=== PATIENT | female | born 1990 | race Caucasian/White ===

== ENCOUNTER 2024-03-28 16:24 | Emergency (ER) | payer OTHER, SELFPAY ==
[2024-03-28 16:27] VITALS: BP 156/84; PULSE 100; RESP 20; TEMP 36.9; O2SAT 99; BMI 42.3
--- NOTE | 2024-03-28 16:32 | ED_ITS ---
HPI - General Adult General Chief complaint: Chest Pain Stated complaint: chest pain, high heart rate Time Seen by Provider: 03/28/24 16:32 History of Present Illness HPI narrative: just walking to car and heart started racing. HR was up to 210 per apple watch. now having some cp. states lasted about a minute . had similar episode about 2 years ago but was not seen at that time. 33-year-old woman presenting to the emergency department with concern of tachycardia and chest pain. She was just walking to her car and suddenly her heart started racing. Measured on her watch at 210 beats per minute. Lasted less than a minute. Was feeling lightheaded appear Had some pressure or feeling of it beating really hard. Couple of years ago had a similar episode though not quite as intense and was not evaluated at that time. She does walk regularly without difficulty. Only takes vitamins for medications and Depo. No particular health problems. No history of anemia. Seen in August with checkup in extensive lab work. I am able to review this with normal chemistries and renal function and hemoglobin and TSH. Otherwise has been usual state of health. She notes her normal resting heart rate in the 80s No family history of unexplained sudden cardiac . Related Data Home Medications ?Medication ?Instructions ?Recorded ?Confirmed estradiol cypionate IM 02/14/24 02/14/24 [Depo-Estradiol] Allergies Allergy/AdvReac Type Severity Reaction Status Date / Time amoxicillin Allergy Verified 02/14/24 16:13 Penicillins Allergy Verified 02/14/24 16:13 Review of Systems Status of ROS: Reports: 6 or more systems reviewed and unremarkable except as noted in History and below Exam Narrative: Exam Narrative: Pleasant. NAD. Breathing easily. Lungs are clear. Heart is in elevated and regular rate without murmur rub or gallop. During our conversation does drop into the 90s. She is well-perfused peripherally. Moving all extremities without difficulty. Const: Vital Signs, click to edit/add: Vital Signs - 24 hr 03/28/24 16:27 Temperature 98.4 F Pulse Rate [Pulse Oximeter] 100 Respiratory Rate 20 Blood Pressure [Ri ght Upper Arm] 156/84 H Pulse Oximetry 99 Oxygen Delivery Me thod Room Air Documenting provider has reviewed patient's vital signs: yes Course Vital Signs Vital signs: Initial Vital Signs Temperature 98.4 F 03/28/24 16:27 Temperature Source Temporal Artery Scan 03/28/24 16:27 Pulse Rate 100 03/28/24 16:27 Respiratory Rate 20 03/28/24 16:27 Blood Pressure 156/84 H 03/28/24 16:27 Blood Pressure Mean 108 H 03/28/24 16:27 Blood Pressure Position Sitting 03/28/24 16:27 Pulse Oximetry 99 03/28/24 16:27 Oxygen Delivery Method Room Air 03/28/24 16:27 Vital Signs Temperature 98.4 F 03/28/24 16:27 Pulse Rate 100 03/28/24 16:27 Respiratory Rate 20 03/28/24 16:27 Blood Pressure 156/84 H 03/28/24 16:27 Pulse Oximetry 99 03/28/24 16:27 Oxygen Delivery Method Room Air 03/28/24 16:27 Temperature 98.4 F 03/28/24 16:27 Pulse Rate 100 03/28/24 16:27 Respiratory Rate 20 03/28/24 16:27 Blood Pressure 156/84 H 03/28/24 16:27 Pulse Oximetry 99 03/28/24 16:27 Oxygen Delivery Method Room Air 03/28/24 16:27 Medical Decision Making MDM Narrative Medical decision making narrative: Relatively recent normal labs without underlying health problems. Doubtful that lab evaluation which show anything. Elevated troponin possibly though this would be likely rate related and was only tachycardic momentarily. EKG reviewed by me now shows a sinus rhythm Monitor briefly in the emergency department without return to this rhythm. This could have been supraventricular tachycardia given the rate that she had measured. Doubtful atrial fibrillation but possible. At this point I think could be prudent to do longer outpatient monitoring. Will try to set up with a ZIO patch. Patient discharge plan below Stay well-hydrated. I do not believe you need to restrict your activity. Return ZIO patch as recommended. If you have more events though that would have been captured before the 2 week is up, I suppose you could bring it in sooner. I only mention this as you have a an appointment in clinic in 2 weeks for preop and perhaps there would be time for this to be interpreted ahead of that appointment. Return for persistent recurrence of symptoms. Medical Records Medical records reviewed: Yes I reviewed the patient's medical records ECG Data Attestation: I personally reviewed and interpreted this ECG as follows: (Sinus tachycardia 103. no delta wave) Discharge Plan Discharge Clinical Impression: Tachycardia Patient Disposition: Home, Self-Care Condition: Improved Additional Instructions: Stay well-hydrated. I do not believe you need to restrict your activity. Return ZIO patch as recommended. If you have more events though that would have been captured before the 2 week is up, I suppose you could bring it in sooner. I only mention this as you have a an appointment in clinic in 2 weeks for preop and perhaps there would be time for this to be interpreted ahead of that appointment. Return for persistent recurrence of symptoms. Prescriptions: No Action estradiol cypionate [Depo-Estradiol] IM Follow Up/Referrals: Provider,Not a Local [Primary Care Provider] - Stand Alone Forms: [employer] Interactive Info Instructions
== END 2024-03-28 18:08 | disposition home or self-care (01) ==
PROVIDERS: Emergency Provider Family Medicine
DX: R00.0 Tachycardia, unspecified (principal)
CPT/HCPCS: 93005; 93246; 99284

== ENCOUNTER 2024-04-18 19:26 | Emergency (ER) | payer OTHER, SELFPAY ==
[2024-04-18] VITALS (8 sets, daily range): BP systolic 132; BP diastolic 86; PULSE 83–97; RESP 18; TEMP 36.8; O2SAT 99–100; BMI 43.1
--- OUTSIDE RECORDS SUMMARY | 2024-04-18 19:31 | XMS_ITS | Encounter Summary ---
Author Organization [facility] Address [address] [place] [address] Care Team Providers Care General Practitioner Name Role Phone Jennifer Palumbo PA-C Primary Care Provider [phone] Encounter Details Date Type Department Care Team (Late st Contact Info) Description 01/11/2024 10:20 AM CDT Lab Visit [facility] [address] [place] [address] Vitamin D deficiency ([facility]) Social History Tobacco Use Types Packs/Day Years Used Date Smoking Tobacco: Former Cigarettes 0.5 5 0 05/14/2014 - 05/14/2019 Smokeless Tobacco: Never Alcohol Use Standard Drinks/Week Comments Yes 1 (1 standard drink = 0.6 oz pur e alcohol) occ PHQ-2 Answer Date Recorded PHQ-2 Score 0 10/18/2023 Sex and Gender Information Value Date Recorded Sex Assigned at Not on file Gender Identity Not on file Sexual Orientation Not on file documented as of this encounter Plan of Treatment Upcoming Encounters Date Type Department Care Team (Latest Contact Info) Description 04/25/2024 1:00 PM ACCESS SERVICES REPRESENTATIVE Hospital Encounter [facility] [address] [facility]. [place], [place] [address] Jayme Gardiner MBBS [address] [facility] [address] [place], [place] [address] 04/25/2024 1:00 PM ACCESS SERVICES REPRESENTATIVE - 04/25/2024 3:55 PM ACCESS SERVICES REPRESENTATIVE Surgery [facility] [address] [facility] [place] [address] Jayme Gardiner MBBS [address] [facility] [address] [place], [place] [address] XI Robotic Laparoscopic Vertical Sleeve Gastrectomy 05/01/2024 10:30 AM ACCESS SERVICES REPRESENTATIVE Appointment [facility] [address] [place] [address] [place] [address] Bam Majano, MANDEEP 05/26/2024 8:30 AM ACCESS SERVICES REPRESENTATIVE [facility]med[facility] [address] [address] Sierra Palm RDN, [address] [place] [address] 05/26/2024 9:00 AM ACCESS SERVICES REPRESENTATIVE Tele[facility]icine [facility] [address] [address] Bam Majano, MANDEEP 06/09/2024 10:00 AM ACCESS SERVICES REPRESENTATIVE Appointment Nursing at [address] [address] Scheduled Procedures Name Priority Associated Diagnoses Date/Ti me XI Robotic Laparoscopic Vertical Sleeve Gastrectomy Morbid obesity with BMI of 40.0-44.9, adult ([facility]C) 04/25/2024 1:00 PM ACCESS SERVICES REPRESENTATIVE documented as of this encounter Procedures Procedure Name Priority Date/Time Associated Diagnosis Comments VITAMIN D 25-HYDROXY, TOTAL Routine 01/11/2024 10:16 AM CDT Vitamin D deficiency ([facility]) documented in this encounter Results * Vitamin D 25-Hydroxy, Total (01/11/2024 10:16 AM CDT) Vitamin D, 25-OH, Total 33 30 - 80 ng/mL 01/11/2024 3:47 PM CDT [facility] Blood Venipuncture / Unknown 01/11/2024 10:16 AM CDT 01/11/2024 10:16 AM CDT Shruthi Araiza PA-C LAB_1 Performing Organization Address City/State/[facility] Co de Phone Number [facility] [address] documented in this encounter Visit Diagnoses Diagnosis Vitamin D deficiency ([facility]) Unspecified vitamin D deficiency Morbid obesity with BMI of 40.0-44.9, adult ([facility]) documented in this encounter Care Teams General Practitioner Relationship Specialty Start Date End Date Jennifer Palumbo PA-C [address] [place] [address] PCP - General Physician Wire Wheeler 02/02/22 documented as of this encounter
--- OUTSIDE RECORDS SUMMARY | 2024-04-18 19:31 | XMS_ITS | Encounter Summary ---
Author Organization [facility] Address [address], [place] [address] Care Team Providers Care Business Functional Analyst Name Role Phone Jennifer Palumbo PA-C Primary Care Provider [phone] Reason for Visit * Reason Comments Depo Provera Injection Encounter Details Date Type Department Care Team (Latest Contact Info) Description 03/19/2024 8:00 AM UTILITY WORKER Nursing Visit Nursing at [address] [address] Surveillance of contraceptive injection (Primary Dx) Social History Tobacco Use Types Packs/Day Years [...] on file documented as of this encounter Patient Instructions * Patient Instructions* SayRadha LPN - 03/19/2024 8:00 AM UTILITY WORKER Depo-Provera injection was given today, 03/19/24. Next dose is due between 06/04/2024 and 06/18/2024. Please schedule next Depo-Provera injection. Use back up contraception for 7 days IF: this is your first injection AND you are post miscarriage or elective this is your first injection AND you are you are outside of the timline guidelines and the clinician has approved injection administration at the visit today ITY WORKER documented in this encounter Progress Notes * Radha Lambert LPN - 03/19/2024 8:00 AM CST S: Ely Campbell is here for Depo Provera Injection for: control treatment. O: Patient has current Depo Provera order in chart, ordered by Jennifer Palumbo PA-C. Date of order is 10/17/23 A: Injection administered according to injection timing guidelines. Yes.. This is injection number 3. P: Depo-Provera injection was given today, 03/19/24. Next dose is due between 06/04/2024 and 06/18/2024. Patient informed to schedule next Depo-Provera injection. Patient informed to use back up contraception for 7 days IF: this is their first injection AND they are post miscarriage or elective this is their first injection AND they are they are outside of the timing guidelines and the clinician has approved injection administration at the visit today 03/19/2024, 8:01 AM ITY WORKER documented in this encounter Nursing Notes * Radha Lambert LPN - 03/19/2024 8:00 AM CST PREVISIT PLANNING DEPO PROVERA NOTE This note does not indicate that the injection was given. For PVP purposes only Pt within time frame for Depo today 03/19/24 - Side today: Right - Date of order: 10/17/23 - Last injection: 01/02/24 - Dx: Encounter for initial prescription of injectable contraceptive - Ordering Provider: Jennifer Palumbo PA-C - Next due: 06/04/24-06/18/24 - This will be injection: 3 Radha Eldridge LPN, 03/17/2024, 2:14 PM ITY WORKER documented in this encounter Plan of Treatment Upcoming Encounters Date Type Department Care Team (Latest Contact Info) Description 04/25/2024 1:00 PM UTILITY WORKER Hospital Encounter [facility] [address] [facility] [place] [address] Jayme Gardiner MBBS [id number] [place], [place] [address] 04/25/2024 1:00 PM UTILITY WORKER - 04/25/2024 3:55 PM UTILITY WORKER Surgery [facility] [address] [facility]. [place], [place] [id number] Jayme Gardiner MBBS [address] [address] XI Robotic Laparoscopic Vertical Sleeve Gastrectomy 05/01/2024 10:30 AM UTILITY WORKER Appointment [facility] [address] [place], [place] [address]e. [address] [address] Bam Majano, MANDEEP 05/26/2024 8:30 AM UTILITY WORKER Telemedicine [facility] [address] [place] [address] [address] Sierra Palm RDN, [place] [address] [place] [address] 05/26/2024 9:00 AM UTILITY WORKER Telemedicine [facility] [address] [place] [address] [address] Bam Majano, MANDEEP 06/09/2024 10:00 AM UTILITY WORKER Appointment Nursing at [address] [phone] Scheduled Procedures Name Priority Associated Diagnoses Date/Ti me XI Robotic Laparoscopic Vertical Sleeve Gastrectomy Morbid obesity with BMI of 40.0-44.9, adult ([facility]) 04/25/2024 1:00 PM UTILITY WORKER documented as of this encounter Visit Diagnoses Diagnosis Morbid obesity with BMI of 40.0-44.9, adult ([facility])- Primary Surveillance of contraceptive injection- Primary Surveillance of other previously prescribed contraceptive method Morbid obesity with BMI of 40.0-44.9, adult ([facility]) documented in this encounter Administered Medications Active Administered Medications - up to 3 most recent administrations Medication Order MAR Action Action Date Dose Rate Site medroxyPROGESTERone (DEPO-PROVERA) injection 150 mg 150 mg, Intramuscular, EVERY 90 DAYS, First dose on Sun10/17/23 at 1100, Last dose on Sun07/13/24 at 1100, For 4 doses, Follow Depo Provera Policy HAZARDOUS DRUG Preparation: Single glove, gown; face mask optional Administration: Single glove Given 03/19/2024 8:08 AM UTILITY WORKER 150 mg Right Ventralgluteal Given 01/02/2024 9:51 AM CDT 150 mg Le ft Ventralgluteal Given 10/17/2023 10:51 AM CDT 150 mg R ight Ventralgluteal documented in this encounter Care Teams Business Functional Analyst Relationship Specialty Start Date End Date Jennifer Palumbo PA-C [address] [place] [address] PCP - General Physician Intern Product Marketing Manager 02/02/22 documented as of this encounter
--- OUTSIDE RECORDS SUMMARY | 2024-04-18 19:31 | XMS_ITS | Encounter Summary ---
Author Organization [facility] Address [address], [place] [address] Care Team Providers Care Feeder Worker Power Unit Operator Name Role Phone Jennifer Palumbo PA-C Primary Care Provider [phone] Reason for Visit * Reason Comments Morbid Obesity Video Visit Encounter Details Date Type Department Care Team (Late st Contact Info) Description 02/01/2024 10:00 AM CDT Tele[facility] [address] [facility] [address] [place] [address] Meenakshi León RN Morbid obesity with body mass index (BMI) of 40.0 to 44.9 in adult ([facility]) (Primary Dx) Social History Tobacco Use Types [...] this encounter Patient Instructions * Patient Instructions* Meenakshi León RN - 02/01/2024 10:00 AM CDT Congratulations on your successes and keep up the hard work! The pre procedure staff will be calling you the day before your scheduled surgery. They will provide you with updated times for your surgery and when to arrive at the hospital. Our organization recommends patients do not receive any vaccination--including for Covid-19 --within 72 hours of a scheduled procedure including surgery. This is to prevent any vaccination reactions from being confused with a complication from your procedure. Likewise, we recommend you wait for at least 7 days after your procedure to be vaccinated. Again, this is to prevent any vaccination reactions from being confused with a post-procedure or post-surgical complication. Review your medication list with the medical provider at your pre operative physical exam. 10 days before surgery: (subject to change at surgeon visit) Begin your high protein liquid diet. If, after starting your high protein liquid diet, you become constipated, begin adding one capful of Miralax to a beverage each day until your surgery- stop if you develop loose stools. 10 days before surgery: Stop all herbal supplements, fish oil, or flaxseed that you may be taking Discontinue the use of NSAID'S (ibuprofen, Advil, Aleve, Motrin, etc.) and aspirin. Tylenol (acetaminophen) is ok. 7 days before surgery: You will receive a courtesy call from your nurse. The day before surgery: If you are having a Dali-en-Y Gastric bypass: purchase Dulcolax Laxative tablets. They usually come5 mg per tablet. Take 4 tablets (to equal 20 mg total) in the scientific helper on the day before surgery. Continue to drink fluids throughout the day to keep well hydrated. You may continue to drink clear liquids up until 4 hours prior to your time of surgery. Discontinue the high protein liquid diet and drink clear liquids only. Refer to your Care Guide forexamples. If you are using Cannabis, refrain from Cannabis use after midnight the night before surgery. UsingCannabis, alcohol or illicit drugs the day of the procedure may result in delay or cancellation of elective surgery/procedures. When showering the night before surgery, please clean well inside your naval as there will be an incision near there. Use CHG wipes that were given to you at surgeon consult as directed. The day of surgery: Stop drinking clear liquids 4 hours before your scheduled surgery. Be sure you have necessary food items in the home prior to surgery, i.e. clear juices, clear broth,sugar free jello, sugar free fluids, etc. Review the surgery and follow-up sections of your care guide and bring it with you to the hospital and to all future appointments. *If you use CPAP, clean the machine well and bring it with you to the hospital. Someone from the sleep center will contact you before surgery. You may go home from the hospital on an injectable medication called Lovenox to help prevent blood clots. If so, the staff in the hospital will provide you with further teaching regarding this. Contact [facility] with any new medical concerns occurring within 30days (before or after) your surgery. No non-emergent surgical procedures within 30 days (before or after) surgery. No long distance travel for 30 days after surgery. Call with questions or concerns. Meenakshi León RN 8:13 AM 02/01/2024 documented in this encounter Progress Notes * Meenakshi León RN - 02/01/2024 10:00 AM CDT Group Video Visit via [employer] Preoperative Education - Bariatric Surgery Completed preoperative education for bariatric surgery using care guide as resource. Instructions for CHG cloths was completed. Ely verbalized understanding and had an opportunity to have all questions answered. The following will be provided to her: AVS at surgeon consultation visit What is an Injectable Anticoagulant patient education form Medical Leave of Absence instructions Provided her with my direct contact number for questions. Encouraged to contact [facility] with any questions or concerns. Meenakshi León RN 02/01/2024, 11:30 AM documented in this encounter Plan of Treatment Upcoming Encounters Date Type Department Care Team (Latest Contact Info) Description 04/25/2024 1:00 PM [facility] Hospital Encounter [facility] [address] [facility] [place] [address] Jayme Gardiner MBBS [address] [facility] [address] [place] [address] 04/25/2024 1:00 PM PENSION MANAGER - 04/25/2024 3:55 PM PENSION MANAGER [facility] [address] [facility] [place] [address] Jayme Gardiner MBBS [address] [facility] [address] [place] [address] XI Robotic Laparoscopic Vertical Sleeve Gastrectomy 05/01/2024 10:30 AM PENSION MANAGER Appointment [facility] [address] [place] [address] [place] [address] Bam Majano, MANDEEP 05/26/2024 8:30 AM PENSION MANAGER Telemedicine [facility] [address] [place] [address] Sierra Palm RDN, [address] [place] [address] 05/26/2024 9:00 AM PENSION MANAGER Telemedicine [facility] [address] [address] Bam Majano, MANDEEP 06/09/2024 10:00 AM PENSION MANAGER Appointment Nursing at [address] [phone] Scheduled Procedures Name Priority Associated Diagnoses Date/Ti me XI Robotic Laparoscopic Vertical Sleeve Gastrectomy Morbid obesity with BMI of 40.0-44.9, adult ([facility]) 04/25/2024 1:00 PM PENSION MANAGER documented as of this encounter Visit Diagnoses Diagnosis Morbid obesity with body mass index (BMI) of 40.0 to 44.9 in adult ([facility])- Primary Morbid obesity with BMI of 40.0-44.9, adult ([facility]) documented in this encounter Care Teams Feeder Worker Power Unit Operator Relationship Specialty Start Date End Date Jennifer Palumbo PA-C [address] [place] [address] PCP - General Physician Professor Of Fine Art 02/02/22 documented as of this encounter
--- OUTSIDE RECORDS SUMMARY | 2024-04-18 19:31 | XMS_ITS | Encounter Summary ---
Author Organization [employer] Address [address] [place] [address] Care Team Providers Care Coat Fitter Name Role Phone Jennifer Palumbo PA-C Primary Care Provider [phone] Reason for Visit * Reason Comments Nutrition Counseling Encounter Details Date Type Department Care Team (Late st Contact Info) Description 04/14/2024 8:00 AM COMMUNICATIONS DEPARTMENT HEAD Telemedicine [facility] [address] [facility] [address] [place], [place] [phone] Sierra Palm RDN, LD [address] [place], [place] [id number] Morbid obesity with BMI of 40.0-44.9, adult (HRC) (Primary Dx) Social History Tobacco Use Types Packs/Day Years Used Date Smoking Tobacco: Former Cigarettes 0.5 5 0 05/14/2014 - 05/14/2019 Smokeless Tobacco: Never Alcohol Use Standard Drinks/Week Comments Not Currently 1 (1 standard drink = 0.6 oz pur e alcohol) occ PHQ-2 Answer Date Recorded PHQ-2 Score 0 10/18/2023 Sex and Gender Information Value Date Recorded Sex Assigned at Not on file Gender Identity Not on file Sexual Orientation Not on file documented as of this encounter Last Filed Vital Signs Vital Sign Reading Time Taken Comments Blood Pressure - - Pulse - - Temperature - - Respiratory Rate - - Oxygen Saturation - - Inhaled Oxygen Concentration - - Weight 122.5 kg (270 lb) 04/13/2024 8:18 PM COMMUNICATIONS DEPARTMENT HEAD Height 170.2 cm (5' 7) 04/13/2024 8:18 PM COMMUNICATIONS DEPARTMENT HEAD Body Mass Index 42.29 04/13/2024 8:18 PM COMMUNICATIONS DEPARTMENT HEAD documented in this encounter Progress Notes * Sierra Palm RDN, LD - 04/14/2024 8:00 AM CST [facility] Medical Nutrition Therapy: Bariatric Pre-Op ASSESSMENT: Referring Provider: Dr Gardiner BMI: Estimated body mass index is 42.29 kg/m?? as calculated from the following: Height as of this encounter: 1.702 m (5' 7). Weight as of this encounter: 122.5 kg (270 lb).. Date of Surgery: April 25, 2024. Since last RD visit: Planning for sleeve gastrectomy Vitamin and mineral supplements: Patient does take a multivitamin and mineral daily. Patient does take 2000 IU vitamin D daily. DIAGNOSIS: We will continue to treat the following obesity-associated medical conditions and conditions exacerbated by or contributing to weight gain by aggressive management of weight: INTERVENTION: Patient has the bariatric binder and was educated on the ten day pre-operative liquid diet, diet changes necessary after the vertical sleeve gastrectomy. Patient was educated on textures, timing, fluids, portions, protein needs, and micronutrient needs. Patient was educated on use of appropriate protein supplements to meet protein needs. Protein needs are estimated at 75 grams/day. MONITORING AND EVALUATION: Patient verbalizes understanding of education. Patient will work with PCP to adjust diabetes medications including insulin for pre-op liquid diet Patient will follow up with the dietitian one month after surgery. Patient was instructed to call with questions. Thank you for this referral. Time: 30 minutes. This visit was conducted via video UNICATIONS DEPARTMENT HEAD documented in this encounter Plan of Treatment Upcoming Encounters Date Type Department Care Team (Latest Contact Info) Description 04/25/2024 1:00 PM COMMUNICATIONS DEPARTMENT HEAD Hospital Encounter [facility] [address] [place] [address]. [place] [address] Jayme Gardiner MBBS [id number] [place] [address] 04/25/2024 1:00 PM COMMUNICATIONS DEPARTMENT HEAD - 04/25/2024 3:55 PM COMMUNICATIONS DEPARTMENT HEAD Surgery [facility] [address] [place] [address]. [place] [address] Jayme Gardiner MBBS [id number] [place] [address] XI Robotic Laparoscopic Vertical Sleeve Gastrectomy 05/01/2024 10:30 AM COMMUNICATIONS DEPARTMENT HEAD Appointment [facility] [address] [place] [address] [address] Bam Majano RN 05/26/2024 8:30 AM COMMUNICATIONS DEPARTMENT HEAD Telemedicine [facility] [address] [address] Sierra Palm RDN, LD [address] [place] [address] 05/26/2024 9:00 AM COMMUNICATIONS DEPARTMENT HEAD Telemedicine [facility] [address] [address] Bam Majano RN 06/09/2024 10:00 AM COMMUNICATIONS DEPARTMENT HEAD Appointment Nursing at [address] [phone] Scheduled Procedures Name Priority Associated Diagnoses Date/Ti me XI Robotic Laparoscopic Vertical Sleeve Gastrectomy Morbid obesity with BMI of 40.0-44.9, adult ([facility]) 04/25/2024 1:00 PM COMMUNICATIONS DEPARTMENT HEAD documented as of this encounter Visit Diagnoses Diagnosis Morbid obesity with BMI of 40.0-44.9, adult (HRC)- Primary Morbid obesity with BMI of 40.0-44.9, adult (HR[facility])- Primary Morbid obesity with BMI of 40.0-44.9, adult ([facility]) documented in this encounter Care Teams Coat Fitter Relationship Specialty Start Date End Date Jennifer Palumbo PA-C [address] [place] [address] PCP - General Physician Typist 02/02/22 documented as of this encounter
--- OUTSIDE RECORDS SUMMARY | 2024-04-18 19:31 | XMS_ITS | Encounter Summary ---
Author Organization [facility] Address [address] [place] [address] Care Team Providers Care Stoper Name Role Phone Jennifer Palumbo PA-C Primary Care Provider [phone] Encounter Details Date Type Department Care Team (Late st Contact Info) Description 01/11/2024 E-Visit [facility] [address] [facility] [address] [place], [place] [address] Letitia Isaac Social History Tobacco Use Types Packs/Day Years [...] (Latest Contact Info) Description 04/25/2024 1:00 PM CANE PILER Hospital Encounter [facility] [address] [place], [place] [address] Jayme Gardiner MBBS [address] [facility] [address] [place] [address] 04/25/2024 1:00 PM CANE PILER - 04/25/2024 3:55 PM CANE PILER Surgery [facility] [address] [facility] [place] [address] Jayme Gardiner MBBS [address] [facility] [address] [place] [address] XI Robotic Laparoscopic Vertical Sleeve Gastrectomy 05/01/2024 10:30 AM CANE PILER Appointment [facility] [place] [address] [place] [address] [place] [address] Bam Majano, MANDEEP 05/26/2024 8:30 AM CANE PILER Telemedicine [facility] [address] [address] Sierra Palm RDN, [address] [place] [address] 05/26/2024 9:00 AM CANE PILER Telemedicine [facility] [address] [place] [address] Bam Majano, MANDEEP 06/09/2024 10:00 AM CANE PILER Appointment Nursing at [address] [address] Scheduled Procedures Name Priority Associated Diagnoses Date/Ti me XI Robotic Laparoscopic Vertical Sleeve Gastrectomy Morbid obesity with BMI of 40.0-44.9, adult ([facility]) 04/25/2024 1:00 PM CANE PILER documented as of this encounter Visit Diagnoses Not on filedocumented in this encounter Care Teams Stoper Relationship Specialty Start Date End Date Jennifer Palumbo PA-C [address] [place] [address] PCP - General Physician French Drawer 02/02/22 documented as of this encounter
--- OUTSIDE RECORDS SUMMARY | 2024-04-18 19:31 | XMS_ITS | Encounter Summary ---
Author Organization [facility] Address [address] [place] [address] Care Team Providers Care Financial Systems Analyst Name Role Phone Jennifer Palumbo PA-C Primary Care Provider Encounter Details Date Type Department Care Team (Late st Contact Info) Description 02/01/2024 E-Visit [facility] [address] [facility] [address] [place], [place] [address] [place] [address] Social History Tobacco Use Types Packs/Day Years [...] (Latest Contact Info) Description 04/25/2024 1:00 PM URGENT CARE TECHNICIAN Hospital Encounter [facility] [address] [place], [place] [address] Jayme Gardiner MBBS [address] [address] 04/25/2024 1:00 PM URGENT CARE TECHNICIAN - 04/25/2024 3:55 PM URGENT CARE TECHNICIAN Surgery [facility] [address] [place] [address] Jayme Gardiner MBBS [address] [address] XI Robotic Laparoscopic Vertical Sleeve Gastrectomy 05/01/2024 10:30 AM URGENT CARE TECHNICIAN Appointment [facility] [place] [address] [place] [address] Bam Majano, MANDEEP 05/26/2024 8:30 AM URGENT CARE TECHNICIAN Telemedicine [facility] [address] [address] Sierra Palm RDN, LD [address] [place] [address] 05/26/2024 9:00 AM URGENT CARE TECHNICIAN Telemedicine [facility] [address] [address] Bam Majano, MANDEEP 06/09/2024 10:00 AM URGENT CARE TECHNICIAN Appointment Nursing at [address] [phone] Scheduled Procedures Name Priority Associated Diagnoses Date/Ti me XI Robotic Laparoscopic Vertical Sleeve Gastrectomy Morbid obesity with BMI of 40.0-44.9, adult ([facility]) 04/25/2024 1:00 PM URGENT CARE TECHNICIAN documented as of this encounter Visit Diagnoses Not on filedocumented in this encounter Care Teams Financial Systems Analyst Relationship Specialty Start Date End Date Jennifer Palumbo PA-C [address] [place] [address] PCP - General Physician Horser Up 02/02/22 documented as of this encounter
--- OUTSIDE RECORDS SUMMARY | 2024-04-18 19:31 | XMS_ITS | Encounter Summary ---
Author Organization [facility] Address [address] [place] [address] Care Team Providers Care Reservation Manager Name Role Phone Jennifer Palumbo PA-C Primary Care Provider [phone] Encounter Details Date Type Department Care Team (Late st Contact Info) Description 02/05/2024 Notes/Orders [facility] [address] [facility] [address] [place], [place] [address] Letitia Isaac Social History Tobacco Use Types [...] (Latest Contact Info) Description 04/25/2024 1:00 PM MEDICAL TECHNOLOGIST CHIEF Hospital Encounter [facility] [address] [place], [place] [address] Jayme Gardiner MBBS [address] [facility] [address] [place] [address] 04/25/2024 1:00 PM MEDICAL TECHNOLOGIST CHIEF - 04/25/2024 3:55 PM MEDICAL TECHNOLOGIST CHIEF Surgery [facility] [address] [place] [address] Jayme Gardiner MBBS [address] [facility] [address] [place] [address] XI Robotic Laparoscopic Vertical Sleeve Gastrectomy 05/01/2024 10:30 AM MEDICAL TECHNOLOGIST CHIEF Appointment [facility] [address] [place] [address] [place] [address] Bam Majano, MANDEEP 05/26/2024 8:30 AM MEDICAL TECHNOLOGIST CHIEF Telemedicine [facility] [address] [address] Sierra Palm RDN, [address] [place] [address] 05/26/2024 9:00 AM MEDICAL TECHNOLOGIST CHIEF Telemedicine [facility] [address] [place] [address] Bam Majano, MANDEEP 06/09/2024 10:00 AM MEDICAL TECHNOLOGIST CHIEF Appointment Nursing at [address] [phone] Scheduled Procedures Name Priority Associated Diagnoses Date/Ti me XI Robotic Laparoscopic Vertical Sleeve Gastrectomy Morbid obesity with BMI of 40.0-44.9, adult ([facility]) 04/25/2024 1:00 PM MEDICAL TECHNOLOGIST CHIEF documented as of this encounter Visit Diagnoses Not on filedocumented in this encounter Care Teams Reservation Manager Relationship Specialty Start Date End Date Jennifer Palumbo PA-C [address] [place] [address] PCP - General Physician Time Cycle Operator 02/02/22 documented as of this encounter
--- OUTSIDE RECORDS SUMMARY | 2024-04-18 19:31 | XMS_ITS | Encounter Summary ---
Author Organization [facility] Address [address] [place] [address] Care Team Providers Care Consulting Sales Executive Name Role Phone Jennifer Palumbo PA-C Primary Care Provider [phone] Reason for Referral * Procedure/Equipment (Routine) - Incomplete Specialty Diagnoses / Procedures Referred By Marie webb Referred To Contact Diagnoses Morbid obesity with BMI of 40.0-44.9, adult ([facility]) Procedures Case Request OR - General/Vascular Surg: XI Robotic Laparoscopic Vertical Sleeve Gastrectomy Jayme Gardiner MBBS [address] [facility] [address] [place] [address] Referral ID Status Reason Start Date Expiration Date V isits Requested Visits Authorized [id number] Incomplete 02/04/2024 05/05/2025 1 1 Reason for Visit * Reason Comments CONSULT Encounter Details Date Type Department Care Team (Late st Contact Info) Description 02/04/2024 2:40 PM CDT Office Visit [facility] [address] [facility] [address] [place], [place] [address] Jayme Gardiner MBBS [address] [facility] [address] [place] [address] Morbid obesity with BMI of 40.0-44.9, adult [...] - Inhaled Oxygen Concentration - - Weight 126.6 kg (279 lb) 02/04/2024 2:36 PM CDT Height 171.5 cm (5' 7.5) 02/04/2024 2:36 PM CDT Body Mass Index 43.05 02/04/2024 2:36 PM CDT documented in this encounter Patient Instructions * Patient Instructions* Meenakshi León RN - 02/04/2024 2:40 PM CDT Congratulations on your successes and keep [...] (to equal 20 mg total) in the senior infrastructure engineer on the day before surgery. Continue to [...] documented in this encounter Progress Notes * Jayme Gardiner MBBS - 02/04/2024 2:40 PM CDT [facility] Bariatric Surgery Consult Date: 02/04/2024 Ely Campbell is a 33 y.o. year-old female patient who presents for consultation regarding Morbid obesity. HPI: She has had problems with obesity since 8 yrs old. Patient has been through our education and evaluation process and felt to be a satisfactory candidate for surgery. Chronic medical problems include: Morbid obesity Seeks to treat the following obesity-associated medical conditions by aggressive management of weight: Morbid obesity Attributes weight gain to: genetics . Further details of her weight pattern are outlined in the nursing and dietitian's evaluations. She has tried numerous measures programs and diets in the past in attempts to lose weight without any nursing home success. Methods of weight loss had included but are not limited to: medical weight management plan through her PCP, dietary modification, exercise regimen, and Wegovy Estimated body mass index is 43.05 kg/m?? as calculated from the following: Height as of this encounter: 5' 7.5 (171.5 cm). Weight as of this encounter: 279 lb (564793 g). Patient Active Problem List Diagnosis Abnormal Papanicolaou smear of cervix Obesity, Class II, BMI 35-39.9 (HRC) Morbid obesity with body mass index (BMI) of 40.0 to 44.9 in adult (HRC) Morbid obesity with BMI of 40.0-44.9, adult (C) PMHx/SHx/FHx: History reviewed. No pertinent past medical history. Past Surgical History: Procedure Laterality Date BLEPHAROPLASTY LOWER EYELID; TONSIL AND ADENOIDECTOMY TONSILLECTOMY WISDOM TEETH EXTRACTION Medications/Allergies: cholecalciferol (VITAMIN D3) 1.25 MG (46739 UT) capsule, Take 1 Capsule (50,000 Units) by mouth once every week., Disp: 12 Capsule, Rfl: 0 cholecalciferol (VITAMIN D3) 1.25 MG (15062 UT) capsule, Take 1 Capsule (50,000 Units) by mouth once every week., Disp: 12 Capsule, Rfl: 0 medroxyPROGESTERone (DEPO-PROVERA) injection 150 mg, 150 mg, Intramuscular, [id number], Jennifer Palumbo PA-C, 150 mg at 01/02/24 0951 Amoxicillin and Penicillins Physical Exam: Vitals: Ht 5' 7.5 (171.5 cm) Wt 279 lb (721220 g) BMI 43.05 kg/m?? Weight at start of program: 243 lbs. General Appearance: awake, alert, oriented, in no acute distress Abdomen: Soft, nondistended, nontender Neurologic: negative findings: mental status intact Psych: alert and appropriate Right upper quadrant ultrasound shows no cholelithiasis. I have reviewed the Ultrasound images. Labs reviewed include Hgb A1C 4.8,AST12, ALT10 Assessment: Morbid obesity. Father from DVT and PE, Aunt had a hospital stay with a PE. Does not believe either hadtesting for a coagulation disorder. Patient very concerned about a thrombosis risk in her. Is not on an estrogen containing contraceptive Unsucessful attempts at weight Loss through non-surgical means Multiple comorbidities related to Obesity. They have been through our education and evaluation process and are felt to be a satisfactorycandidate for surgery. Estimated body mass index is 43.05 kg/m?? as calculated from the following: Height as of this encounter: 5' 7.5 (171.5 cm). Weight as of this encounter: 279 lb (846510 g). Ely Campbell meets criteria for bariatric surgery. Risk Factors include:Morbid obesity. Plan: Anticipate discharge home on Lovenox Pre op Liquid diet: 10 days Had an extensive discussion with her re the risks of bariatric surgery and management of those risks, the heterogeneity in response to surgery, the chronic progressive nature of obesity and the potential for weight regain The patient went through a shared decision making process and discussions from the beginning of thebariatric surgery evaulation process. I have explained in thorough detail the pros and cons of a laparoscopic /robotic vertical sleeve gastrectomy and laparoscopic /robotic Dali-en-Y gastric bypass. I have explained common reasons people fail bariatric surgery including no exercise program, frequent eating or drinking of high calorie foods, grazing, drinking with meals and high carbohydrate diets that do not lend themselves to nursing home satiety. A patient must achieve the result they desire through conscious purposeful living. They cannot get the results accidently. They must on a daily basis have a have a decreased caloric intake and at thesame time as an increased caloric expenditure. Patient wishes to proceed with laparoscopic assisted robotic vertical sleeve gastrectomy. I have explained the risk and complications which include but are not limited to: open surgery, bleeding, infection, bowel injury, esophageal injury, sleeve leaks that can be difficult to control, bowel obstruction, recurring weight gain, nutritional deficiencies, DVT, PE, CVA, [place] Robotic approach contingent upon robotic platform availability. In particular discussed the potential for post op GERD symptoms. Other risks had included, but werenot limited to, worsening heartburn/reflux, nausea, vomiting, dehydration, decreased absorption of vitamins regurgitation, strictures, leaks, abscesses, failure to thrive, re operations. I discussed the risk of a leak from a vertical sleeve gastrectomy. We discussed the management of these leaks which would likely include a PICC line, TPN and NPO for about 6 weeks. We discussed the possibility of a percutaneous drain being placed for management of these leaks. NIMESH Lawrence FACS documented in this encounter Plan of Treatment Upcoming Encounters Date Type Department Care Team (Latest Contact Info) Description 04/25/2024 1:00 PM ESCROW CLERK Hospital Encounter [facility] [address] [place] [address] Jayme Gardiner MBBS [address] [facility] [address] [place] [address] 04/25/2024 1:00 PM ESCROW CLERK - 04/25/2024 3:55 PM ESCROW CLERK Surgery [facility] [address] [place] [address] Jayme Gardiner MBBS [address] [facility] [address] [place] [address] XI Robotic Laparoscopic Vertical Sleeve Gastrectomy 05/01/2024 10:30 AM ESCROW CLERK Appointment [facility] [address] [place] [address] Bam Majano, RN 05/26/2024 8:30 AM ESCROW CLERK Telemedicine [facility] [address] [facility] [address] [place] [address] Sierra Palm RDN, [address] [place] [address] 05/26/2024 9:00 AM ESCROW CLERK Telemedicine [facility] [place] [address] [facility] [address] [place] [address] Bam Majano, MANDEEP 06/09/2024 10:00 AM ESCROW CLERK Appointment Nursing at [address] [phone] Scheduled Procedures Name Priority Associated Diagnoses Date/Ti me XI Robotic Laparoscopic Vertical Sleeve Gastrectomy Morbid obesity with BMI of 40.0-44.9, adult (HRC) 04/25/2024 1:00 PM ESCROW CLERK documented as of this encounter Visit Diagnoses Diagnosis Morbid obesity with BMI of 40.0-44.9, adult (HRC)- Primary Morbid obesity with BMI of 40.0-44.9, adult (HRC)- Primary Morbid obesity with BMI of 40.0-44.9, adult (HRC) documented in this encounter Care Teams Consulting Sales Executive Relationship Specialty Start Date End Date Jennifer Palumbo PA-C [address] [place] [address] PCP - General Physician Supervisor [employer] 02/02/22 documented as of this encounter
--- OUTSIDE RECORDS SUMMARY | 2024-04-18 19:31 | XMS_ITS | Encounter Summary ---
Author Organization [employer] Address [address] [place] [address] Care Team Providers Care Clinical Documentation Developer Name Role Phone Jennifer Palumbo PA-C Primary Care Provider [phone] Reason for Visit * Reason Comments Careplan: General Encounter Details Date Type Department Care Team (Late st Contact Info) Description 04/18/2024 Telephone [facility] [address] [facility] [address] [place], [place] [address] Julio Cesar Gao, RN Careplan: General Social History Tobacco Use Types Packs/Day Years [...] on file documented as of this encounter Nursing Notes * Julio Cesar Gao RN - 04/18/2024 2:09 PM CST Pre-op courtesy call placed today. Spoke with the patient . Patient encouraged to call with any questions or concerns regarding upcoming bariatric surgery. Call back number given. Pt. was reminded ofclear liquids only the day before surgery, pre-op shower instructions given. N DRIVER documented in this encounter Plan of Treatment Upcoming Encounters Date Type Department Care Team (Latest Contact Info) Description 04/25/2024 1:00 PM TRAIN DRIVER Hospital Encounter [facility] [address] [place] [address] Jayme Gardiner MBBS [address] [address] 04/25/2024 1:00 PM TRAIN DRIVER - 04/25/2024 3:55 PM TRAIN DRIVER Surgery [facility] [address] [place] [address] Jayme Gardiner MBBS [address] [address] XI Robotic Laparoscopic Vertical Sleeve Gastrectomy 05/01/2024 10:30 AM TRAIN DRIVER Appointment [facility] [address] [place] [address] [address] [address] Bam Majano, MANDEEP 05/26/2024 8:30 AM TRAIN DRIVER Telemedicine [facility] [address] [place] [address] [address] [address] Sierra Palm RDN, LD [address] [place] [address] 05/26/2024 9:00 AM TRAIN DRIVER Telemedicine [facility] [address] [place] [address] Ave [address] [address] Bam Majano, MANDEEP 06/09/2024 10:00 AM TRAIN DRIVER Appointment Nursing at [address] [phone] Scheduled Procedures Name Priority Associated Diagnoses Date/Ti me XI Robotic Laparoscopic Vertical Sleeve Gastrectomy Morbid obesity with BMI of 40.0-44.9, adult ([facility]) 04/25/2024 1:00 PM TRAIN DRIVER documented as of this encounter Visit Diagnoses Not on filedocumented in this encounter Care Teams Clinical Documentation Developer Relationship Specialty Start Date End Date Jennifer Palumbo PA-C [address] [place] [address] PCP - General Physician Rod Hanger 02/02/22 documented as of this encounter
--- OUTSIDE RECORDS SUMMARY | 2024-04-18 19:31 | XMS_ITS | Encounter Summary ---
Author Organization [facility] Address [address], [place] [address] Care Team Providers Care Machine Cutter Name Role Phone Jennifer Palumbo PA-C Primary Care Provider [phone] Reason for Visit * Reason Comments PRE-OP EXAM Encounter Details Date Type Department Care Team (Late st Contact Info) Description 04/09/2024 8:10 AM REMOTE SENSING TECHNICIAN Pre-Op Visit [facility] [address] [place] [address] Jennifer Palumbo PA-C [address] [place] [address] Preop examination (Primary Dx); Morbid obesity with body mass index (BMI) of 40.0 to 44.9 in adult ([facility]) Social History Tobacco Use Types Packs/Day Years Used Date Smoking Tobacco: Former Cigarettes 0.5 5 0 05/14/2014 - 05/14/2019 Smokeless Tobacco: Never Tobacco Cessation:Counseling Given: Not Answered Alcohol Use Standard Drinks/Week Comments Not Currently [...] Sign Reading Time Taken Comments Blood Pressure 138/83 04/09/2024 8:03 AM REMOTE SENSING TECHNICIAN Pulse 74 04/09/2024 8:03 AM REMOTE SENSING TECHNICIAN Temperature - - Respiratory Rate - - Oxygen Saturation - - Inhaled Oxygen Concentration - - Weight 126.6 kg (279 lb) 04/09/2024 8:03 AM REMOTE SENSING TECHNICIAN Height 171 cm (5' 7.32) 04/09/2024 8:03 AM REMOTE SENSING TECHNICIAN Body Mass Index 43.28 04/09/2024 8:03 AM REMOTE SENSING TECHNICIAN documented in this encounter Patient Instructions * Patient Instructions* Jennifer Palumbo PA-C - 04/09/2024 8:10 AM REMOTE SENSING TECHNICIAN Follow your individualized medication recommendations as described above. In addition, please stop all qxdl-kpt-blofsfz medications including aspirin, ibuprofen (Advil, Motrin), naproxen (Aleve, Naprosyn), herbal remedies and supplements one week prior to procedure unless directed otherwise by your care team. You may continue to take acetaminophen (Tylenol) up to the dayof your procedure. Continue all other medications as currently taking. Let your care team know if you have questions. On the day of your procedure, do not wear any hair product including hair sprays and gels and avoidusing body sprays and deodorants/antiperspirants. Bring with you to the site of the procedure: Any oral appliances or CPAP equipment related to sleep apnea Any other health-related equipment or devices you use daily Instructions: Do not eat, drink, or chew anything after midnight the evening prior to your procedure. This includes water and mints, candy, gum and chewing tobacco. Do not consume alcohol 24 hours prior to your surgery. Refrain from smoking 12 hours prior to your surgery. These substances can cause you to have adverse reactions to anesthesia and medications. [place] your teeth on the morning of your procedure but do not swallow any water. Bathe or shower on the morning of your procedure to minimize the risk of infection. Do not use any body lotion or powder the morning of procedure. Please do not wear any make-up. Wear comfortable clothing such as a shirt or blouse that doesn???t need to be pulled over your headand low-heeled shoes. Leave valuables at home except what is needed to take care of any financial obligations you may have. Contact lenses may not be worn during your procedure. Either leave them at home or bring a case fortheir safekeeping. Health changes should be reported immediately to your surgeon, even if the changes seem minor such as fever, cough, rash, or a cold. Please notify your surgeon if there is a possibility that you may be . Arrange for a responsible adult to drive you home and stay with you for the first 24 hours following your procedure because the effects of anesthesia and sedation will make you drowsy for that periodof time. Arrive at your scheduled time that was assigned by the Pre-Op nurse. If you have not been contactedby noon the last business day before your surgery, call the Pre-Op nurse. TE SENSING TECHNICIAN documented in this encounter Progress Notes * Jennifer Palumbo PA-C - 04/09/2024 8:10 AM CST Pre-Operative Assessment 04/09/2024 ET [place] PreOp Assessment Details Procedure XI Robotic Laparoscopic Vertical Sleeve Gastrectomy Surgeon Jayme Gardiner MBBS and Nieves Pineda PA-C Location [facility] Procedure Date 04/25/2024 Grant Graves is a 34 y.o. old female here for pre-operative evaluation for procedure noted above. Concerns: ER visit recently for 200 bmps on watch, just sitting and relaxing. [place] off and sweaty. About 2 weeks ago, and also a year ago. Wearing a Zio patch for monitoring, she'll be done monitoring on 04/11/24. History of morbid obesity, BMI of 43.28 kg/m2 Plan for surgical repair/procedure as noted above History of surgical procedures without complications from anesthesia Denies any family history of adverse anesthesia reactions Patient denies any prior cardiac, respiratory, and/or renal abnormalities Currently being worked up for unidentified arrhythmia No history of diabetes or prediabetes Patient is a former smoker, not a current smoker Patient is not taking any prescription blood thinners Notes a significant paternal family history of blood clots Denies regular NSAID use No true LMP due to Depo shot for control, intermittent spotting Patient Active Problem List Diagnosis Date Noted Morbid obesity with BMI of 40.0-44.9, adult ([facility]) 02/04/2024 Morbid obesity with body mass index (BMI) of 40.0 to 44.9 in adult ([facility]) 01/10/2024 Obesity, Class II, BMI 35-39.9 ([facility]) 10/23/2023 Abnormal Papanicolaou smear of cervix 04/23/2008 Overview Note: 2007 LSIL 2009 ASCUS HPV negative 2022 NILM HPV negative 32 y.o. PLAN, per ASCCP Guidelines: Cotest 05/2027 History reviewed. No pertinent past medical history. Past Surgical History: Procedure Laterality Date BLEPHAROPLASTY LOWER EYELID; TONSIL AND ADENOIDECTOMY TONSILLECTOMY WISDOM TEETH EXTRACTION Current Outpatient Medications Medication Instructions Childrens Multivitamin/Iron (AKA POLY--ABRAHAM WITH IRON) 15 MG chewable tablet 2 Tablets, Oral, DAILY cholecalciferol (VITAMIN D3) 50,000 Units, Oral, WEEKLY cholecalciferol (VITAMIN D3) 50,000 Units, Oral, WEEKLY cholecalciferol (VITAMIND3) 2,000 Units, Oral, DAILY Multiple Vitamins-Minerals (WOMENS MULTIVITAMIN) TABS No dose, route, or frequency recorded. Allergies Allergen Reactions Amoxicillin Rash Penicillins Social History Occupational History Not on file Tobacco Use Smoking status: Former Current packs/day: 0.00 Average packs/day: 0.5 packs/day for 5.0 years (2.5 ttl pk-yrs) Types: Cigarettes Start date: 05/14/2014 Quit date: 05/14/2019 Years since quittin.9 Smokeless tobacco: Never Vaping Use Vaping status: Never Used Substance and Sexual Activity Alcohol use: Not Currently Alcohol/week: 1.0 standard drink of alcohol Comment: occ Drug use: Never Sexual activity: Not Currently Partners: Male control/protection: Injection No LMP recorded (lmp unknown). Patient has had an injection. Family History Problem Relation Name Age of Onset Hypertension Father Dad Cataract Negative Family History Glaucoma Negative Family History Macular Degeneration Negative Family History Diabetes, Type II Negative Family History Thyroid Disorder Negative Family History Retinal Detachment Negative Family History Review of Systems: 04/09/2024 ET Amb PreOp Assessment Sx Have you had a heart attack in the last 30 days? No Have you experienced chest tightening or chest pressure with activity? Yes Do you wake at night with difficulty breathing? No Do you have swelling in your feet or ankles? No Do you get short of breath if lying flat at night? No Do you hear wheezing or whistling when you breathe? No Have you had a cough, runny nose, or cold symptoms in the last 2 weeks? No Have you tested positive for Covid in the last 6 months? No Do you have a long-standing cough? Yes Do you snore or are you sleepy during the day? No Do you have any symptoms due to a recent concussion? No Do you or close relatives have bleeding or clotting problems? Yes Have you taken Aspirin, Ibuprofen (Advil) or Naproxen (Aleve) in the last 7 days? No Do you or close relatives have a history of a severe or life-threatening reaction to anesthesia? No Estimated Functional Capacity: Can you climb one flight of stairs, or walk up a gradual uphill without stopping? yes, functional capacity is more than or equal to 4 METS Objective BP 138/83 (BP Location: Left Arm, BP Cuff Size: Large) Pulse 74 Ht 5' 7.32 (1.71 m) Wt 279 lb (126.6 kg) LMP (LMP Unknown) BMI 43.28 kg/m?? Physical Exam: General Appearance: alert, well appearing, and in no apparent distress Eyes: lids normal, sclera clear, and conjunctiva normal ENT: oropharynx clear, ear canals clear, TMs normal, mucus membranes moist, no oral lesions, no nasal drainage, and no nasal congestion Neck: no lymphadenopathy, no thyromegaly or nodules, and supple Heart: regular rate and rhythm, no murmurs, gallops or rubs, and normal S1 and S2 Lungs: clear to auscultation, no wheezes, rales or rhonchi, equal breath sounds throughout, and normal respiratory effort Abdomen: soft, nondistended, nontender, no palpable masses, and no organomegaly Extremities: no BLE edema and normal pedal pulses Skin: no rashes or worrisome lesions Neurologic: normal speech, no facial droop, alert and oriented x 3, and normal gait Data: Labs: Yes: Negative UPT Sodium Date Value Ref Range Status 04/09/2024 138 136 - 145 mmol/L Final Potassium Date Value Ref Range Status 04/09/2024 4.0 3.5 - 5.1 mmol/L Final Creatinine Date Value Ref Range Status 04/09/2024 0.73 0.55 - 1.02 mg/dL Final Hemoglobin Date Value Ref Range Status 04/09/2024 14.2 12.0 - 15.5 g/dL Final Hemoglobin A1C Date Value Ref Range Status 08/20/2023 4.8 <=5.6 % Final Glucose Date Value Ref Range Status 04/09/2024 104 (H) 70 - 100 mg/dL Final Comment: The given reference range is for the fasting state. Non-fasting reference range for glucose is 70 -180 mg/dL. ECG: Yes: date and results: 06/18/2021 Sinus rhythm Normal ECG When compared with ECG of 15-JUN-2021 18:23, Vent. rate has decreased BY 36 BPM Confirmed by - EMERGENCY ROOM, PHYSICIAN ([id number]), make up editor SAMAN CRUZ ([id number]) on 06/21/2021 6:44:49 AM Assessment/Plan Patient is medically optimized for planned procedure(s) assuming pended studies are acceptable. Pending Zio patch results. When results return, I will E-consult Cardiology to discuss patient case andget recommendations. ICD-10-CM 1. Preop examination Z01.818 Test (Urine) Complete Blood Count -W/Diff BMP 2. Morbid obesity with body mass index (BMI) of 40.0 to 44.9 in adult ([facility]) E66.01 Z68.41 Medication changes are listed in patient instructions below: No Aspirin or motrin or aleve or advil or ibuprofen 1 week before surgery. Tylenol is safe to use at that time. Tylenol limit 3000 mg in a day Normal exam Negative UPT, do blood work and E-visit cardiac follow-up You may proceed for surgery Special risks: At risk for or history of sleep apnea. Recommend RT assessment. Medication recommendations: Patient Instructions Follow your individualized medication recommendations as described above. In addition, please stop all bgkx-eei-retolyk medications including aspirin, ibuprofen (Advil, Motrin), naproxen (Aleve, Naprosyn), herbal remedies and supplements one week prior to procedure unless directed otherwise by your care team. You may continue to take acetaminophen (Tylenol) up to the dayof your procedure. Continue all other medications as currently taking. Let your care team know if you have questions. On the day of your procedure, do not wear any hair product including hair sprays and gels and avoidusing body sprays and deodorants/antiperspirants. Bring with you to the site of the procedure: Any oral appliances or CPAP equipment related to sleep apnea Any other health-related equipment or devices you use daily Instructions: Do not eat, drink, or chew anything after midnight the evening prior to your procedure. This includes water and mints, candy, gum and chewing tobacco. Do not consume alcohol 24 hours prior to your surgery. Refrain from smoking 12 hours prior to your surgery. These substances can cause you to have adverse reactions to anesthesia and medications. [place] your teeth on the morning of your procedure but do not swallow any water. Bathe or shower on the morning of your procedure to minimize the risk of infection. Do not use any body lotion or powder the morning of procedure. Please do not wear any make-up. Wear comfortable clothing such as a shirt or blouse that doesn???t need to be pulled over your headand low-heeled shoes. Leave valuables at home except what is needed to take care of any financial obligations you may have. Contact lenses may not be worn during your procedure. Either leave them at home or bring a case fortheir safekeeping. Health changes should be reported immediately to your surgeon, even if the changes seem minor such as fever, cough, rash, or a cold. Please notify your surgeon if there is a possibility that you may be . Arrange for a responsible adult to drive you home and stay with you for the first 24 hours following your procedure because the effects of anesthesia and sedation will make you drowsy for that periodof time. Arrive at your scheduled time that was assigned by the Pre-Op nurse. If you have not been contactedby noon the last business day before your surgery, call the Pre-Op nurse. Electronically signed by: Jennifer Palumbo PA-C 04/09/2024, 10:56 PM TE SENSING TECHNICIAN documented in this encounter Plan of Treatment Upcoming Encounters Date Type Department Care Team (Latest Contact Info) Description 04/25/2024 1:00 PM REMOTE SENSING TECHNICIAN Hospital Encounter [facility] [address] [place] [address]. [place] [address] Jayme Gardiner MBBS [id number] [place], [place] [id number] 04/25/2024 1:00 PM REMOTE SENSING TECHNICIAN - 04/25/2024 3:55 PM REMOTE SENSING TECHNICIAN Surgery [facility] [address] [facility] [place] [address] Jayme Gardiner MBBS [phone] [place] [address] XI Robotic Laparoscopic Vertical Sleeve Gastrectomy 05/01/2024 10:30 AM REMOTE SENSING TECHNICIAN Appointment [facility] [address] [address] Bam Majano RN 05/26/2024 8:30 AM REMOTE SENSING TECHNICIAN Telemedicine [facility] [address] [address] [address] [place] RDN, [place] [address] [place], [place] [id number] 05/26/2024 9:00 AM REMOTE SENSING TECHNICIAN Telemedicine [facility] [address] [address] Bam Majano RN 06/09/2024 10:00 AM REMOTE SENSING TECHNICIAN Appointment Nursing at [address] [phone] Scheduled Procedures Name Priority Associated Diagnoses Date/Ti me XI Robotic Laparoscopic Vertical Sleeve Gastrectomy Morbid obesity with BMI of 40.0-44.9, adult ([facility]) 04/25/2024 1:00 PM REMOTE SENSING TECHNICIAN documented as of this encounter Results * Test (Urine) (04/09/2024 8:52 AM REMOTE SENSING TECHNICIAN) HCG, Urine Negative Negative 04/09/2024 8:56 AM [facility] Urine Non-blood Collection / Unknown 04/09/2024 8:52 AM REMOTE SENSING TECHNICIAN 04/09/2024 8:52 AM REMOTE SENSING TECHNICIAN Jennifer Palumbo PA-C LAB_1 [facility] [address] [place] [address], [facility] * (ABNORMAL) BMP (04/09/2024 8:35 AM REMOTE SENSING TECHNICIAN) Sodium 138 136 - 145 mmol/L 04/09/2024 11:42 AM [facility] Potassium 4.0 3.5 - 5.1 mmol/L 04/09/2024 11:42 AM [facility] Chloride 108 98 - 109 mmol/L 04/09/2024 11:42 AM [facility] CO2 23 20 - 29 mmol/L 04/09/2024 11:42 AM [facility] Anion Gap 7 6 - 16 mmol/L 04/09/2024 11:42 AM [facility] Calcium 9.7 8.4 - 10.4 mg/dL 04/09/2024 11:42 AM [facility] BUN 11 7 - 26 mg/dL 04/09/2024 11:42 AM [facility] Creatinine 0.73 0.55 - 1.02 mg/dL 04/09/2024 11:42 AM [facility] Glucose 104(H) 70 - 100 mg/dL 04/09/2024 11:42 AM [facility] Comment:The given reference range is for the fasting state. Non-fasting reference range for glucose is 70 - 180 mg/dL. GFR, Estimated >60 >60 mL/min/1. 73m2 04/09/2024 11:42 AM [facility] Hours Fasting 0.1 8 - 12 Hours 04/09/2024 11:42 AM [facility] Blood Venipuncture / Unknown 04/09/2024 8:35 AM REMOTE SENSING TECHNICIAN 04/09/2024 8:35 AM REMOTE SENSING TECHNICIAN Jennifer Palumbo PA-C LAB_1 [facility] [address] documented in this encounter Visit Diagnoses Diagnosis Morbid obesity with BMI of 40.0-44.9, adult ([facility])- Primary Preop examination- Primary Preoperative examination, unspecified Morbid obesity with body mass index (BMI) of 40.0 to 44.9 in adult ([facility]) Morbid obesity with BMI of 40.0-44.9, adult ([facility]) documented in this encounter Care Teams Machine Cutter Relationship Specialty Start Date End Date Jennifer Palumbo PA-C [address] [place] [address] PCP - General Physician Edge Trimmer Mechanic 02/02/22 documented as of this encounter
--- OUTSIDE RECORDS SUMMARY | 2024-04-18 19:31 | XMS_ITS | Encounter Summary ---
Author Organization [facility] Address [address], [place] [address] Care Team Providers Care Roller Die Cutting Machine Operator Name Role Phone Jennifer Palumbo PA-C Primary Care Provider [phone] Reason for Visit * Reason Comments Follow-up Pre op Encounter Details Date Type Department Care Team (Late st Contact Info) Description 01/10/2024 8:00 AM CDT Office Visit [facility] [address] [facility] [address] [place], [place] [id number] Shruthi Araiza PA-C [address] [place], [place] [id number] Morbid obesity with body mass index (BMI) [...] Sign Reading Time Taken Comments Blood Pressure 129/86 01/10/2024 8:01 AM CDT Pulse 64 01/10/2024 8:01 AM CDT Temperature - - Respiratory Rate - - Oxygen Saturation - - Inhaled Oxygen Concentration - - Weight 124 kg (273 lb 6.4 oz) 01/10/2024 8:01 AM CDT Height 171.5 cm (5' 7.5) 01/10/2024 8:01 AM CDT Body Mass Index 42.19 01/10/2024 8:01 AM CDT documented in this encounter Progress Notes * Shruthi Araiza PA-C - 01/10/2024 8:00 AM CDT Metabolic Health and Weight Management PREOPERATIVE FOLLOW UP Chief Complaint Patient presents with Follow-up Pre op SUBJECTIVE: Ely Campbell is a 33 y.o. female with chronic medical problems including morbid obesity, whowas referred/seeks to treat obesity-associated medical conditions by aggressive management of weight. Patient continues to undergo evaluation for candidacy for bariatric surgery. INTERIM HISTORY: Weight at last visit: 243 lbs Current weight: 273 lbs (BMI 42.19) Prior authorization for bariatric surgery was denied due to her BMI of 38 without comorbidity when she started with this program. Her BMI prior to starting Wegovy was 48. Wegovy is no longer covered for her, so she was referred to this clinic to pursue bariatric surgery. Since stopping Wegovy, she has regained weight as expected. Appetite has increased. Sticking to healthy eating habits and regular exercise. PT follow up needed: No - discharged. Behavioral health follow up needed: No - cleared. RD follow up needed: No - cleared. Labs: Low vitamin D (20), taking vitamin D3 2000 IU daily. RUQ US: No cholelithiasis or cholecystitis. EGD: Not indicated, denies GERD symptoms. control: Depo Provera injections. What are you doing for exercise?: Treadmill, Physical therapy Patient's weight history is as follows: Bariatric Weight History and Calculations Weight History Starting Weight: 243 lb 9.6 oz Current Weight: 273 lb 6.4 oz Height (in): 67.5 Weight Calculations Excess Weight: 96 lb 5.6 oz Current Weight Loss: -29 lb 12.8 oz Goal Weight: 147 lb 4 oz Starting BMI: 37.67 Percent Exess Weight Loss: -31 Current BMI: 42.28 Percent Totoal Body Weight Loss: -12 PAST MEDICAL HISTORY: No past medical history on file. CURRENT PROBLEMS: Patient Active Problem List Diagnosis Abnormal Papanicolaou smear of cervix Obesity, Class II, BMI 35-39.9 ([facility]) Morbid obesity with body mass index (BMI) of 40.0 to 44.9 in adult ([facility]) SURGICAL HISTORY: Past Surgical History: Procedure Laterality Date BLEPHAROPLASTY LOWER EYELID; MEDICATIONS: Outpatient Medications Prior to Visit Medication Sig Dispense Refill cholecalciferol (VITAMIN D3) 1.25 MG (12778 UT) capsule Take 1 Capsule (50,000 Units) by mouth onceevery week. 12 Capsule 0 cholecalciferol (VITAMIN D3) 1.25 MG (84277 UT) capsule Take 1 Capsule (50,000 Units) by mouth onceevery week. 12 Capsule 0 Facility-Administered Medications Prior to Visit Medication Dose Route Frequency Provider Last Rate Last Admin medroxyPROGESTERone (DEPO-PROVERA) injection 150 mg 150 mg Intramuscular [id number] Jennifer Palumbo PA-C 150 mg at 01/02/24 0951 ALLERGIES: Allergies Allergen Reactions Amoxicillin Rash Penicillins FAMILY HISTORY: Family History Problem Relation Name Age of Onset Hypertension Father Dad Cataract Negative Family History Glaucoma Negative Family History Macular Degeneration Negative Family History Diabetes, Type II Negative Family History Thyroid Disorder Negative Family History Retinal Detachment Negative Family History SOCIAL HISTORY: Social History Tobacco Use Smoking status: Former Current packs/day: 0.00 Average packs/day: 0.5 packs/day for 5.0 years (2.5 ttl pk-yrs) Types: Cigarettes Start date: 05/14/2014 Quit date: 05/14/2019 Years since quittin.6 Smokeless tobacco: Never Substance Use Topics Alcohol use: Yes Alcohol/week: 1.0 standard drink of alcohol Types: 1 Glasses of wine per week Comment: occ OBJECTIVE: BP 129/86 (BP Location: Left Forearm, BP Cuff Size: Large) Pulse 64 Ht 5' 7.5 (171.5 cm) Wt 273 lb 6.4 oz (110633 g) BMI 42.19 kg/m?? General: NAD Respiratory: No distress is noted Skin: Intact Neuropsych: Patient is alert and oriented. Exhibits appropriate affect Lab and ultrasound results were also reviewed with the patient and explained in detail. RUQ US 08/21/23: FINDINGS: Pancreas: Appears unremarkable. Liver: Contour appears unremarkable. Parenchyma appears unremarkable. Gallbladder: No stones, sludge, wall thickening, or pericholecystic fluid. Sonographic Fuller's Sign: No. CBD: 0.3 cm. Right Kidney: Measures 10.0 x 4.3 x 5.3 cm. Appears unremarkable. Ascites: None. IMPRESSION: 1. Normal sonographic appearance of the gallbladder, no evidence of gallstones. 2. Otherwise unremarkable right upper quadrant ultrasound. IMPRESSION/PLAN: ICD-10-CM 1. Morbid obesity with body mass index (BMI) of 40.0 to 44.9 in adult ([facility]) E66.01 Z68.41 Obesity-associated comorbid conditions listed above are likely to improve with weight loss and dietary changes. The patient remains an appropriate candidate for surgery from a medical standpoint. The patient will continue in the evaluation process for surgery. Further tasks needed before surgery includes the following: - No further tasks identified. Patient's BMI is now 42, which qualifies her for bariatric surgery. Will message her business information manager and human resources office manager to re- submit PA for surgery. - Recheck vitamin D level. OK to proceed as long as it shows improvement. The patient was given an opportunity to ask further questions regarding the upcoming surgery. Follow up: BELINDA Araiza PA-C TT:20, CT: 10 documented in this encounter Nursing Notes * Cinthya Garnica MA - 01/10/2024 8:00 AM CDT Standard rooming completed. Last seen on 08/16/23 with recorded weight of 243.6 lbs. Weight History: Bariatric Weight History and Calculations Weight History Starting Weight: 243 lb 9.6 oz Current Weight: 273 lb 6.4 oz Height (in): 67.5 Weight Calculations Excess Weight: 96 lb 5.6 oz Current Weight Loss: -29 lb 12.8 oz Goal Weight: 147 lb 4 oz Starting BMI: 37.67 Percent Exess Weight Loss: -31 Current BMI: 42.28 Percent Totoal Body Weight Loss: -12 Measurements Do you have a scale? YES - 273.4 lb. Do you have a BP cuff? YES - 129/86 Eating patterns Patient is experiencing the following symptoms/problems: Increased Food Cravings, Increased Hunger Medications: reviewed by patient. Compliance: NA Side effects: NO Would like to discuss: Surgery/ medication Provided her my direct contact number for questions. Cinthya Garnica MA 8:01 AM 01/10/2024 documented in this encounter Plan of Treatment Upcoming Encounters Date Type Department Care Team (Latest Contact Info) Description 04/25/2024 1:00 PM [facility] Hospital Encounter [facility] [address] [facility] [place] [address] Jayme Gardiner MBBS [address] [address] 04/25/2024 1:00 PM [employer] - 04/25/2024 3:55 PM [facility] [employer] [facility] Surgery [facility] [address] [facility] [place] [address] Jayme Gardiner MBBS [address] [address] XI Robotic Laparoscopic Vertical Sleeve Gastrectomy 05/01/2024 10:30 AM [employer] Appointment [facility] [address] [place], [place] [address]e. [address] [address] Bam Majano RN 05/26/2024 8:30 AM [employer] Telemedicine [facility] [address] [place] [address]. [address] [address] Sierra Palm RDN, LD [address] [place] [address] 05/26/2024 9:00 AM [employer] Telemedicine [facility] [address] [facility] [place] [address] Bam Majano RN 06/09/2024 10:00 AM [employer] Appointment Nursing at [facility] [id number] [place] [phone] Scheduled Procedures Name Priority Associated Diagnoses Date/Ti me XI Robotic Laparoscopic Vertical Sleeve Gastrectomy Morbid obesity with BMI of 40.0-44.9, adult ([facility]) 04/25/2024 1:00 PM [employer] documented as of this encounter Visit Diagnoses Diagnosis Morbid obesity with body mass index (BMI) of 40.0 to 44.9 in adult ([facility])- Primary Morbid obesity with BMI of 40.0-44.9, adult ([facility]) documented in this encounter Care Teams Roller Die Cutting Machine Operator Relationship Specialty Start Date End Date Jennifer Palumbo PA-C [address] [place] [address] PCP - General Physician It Operations Specialist 02/02/22 documented as of this encounter
--- OUTSIDE RECORDS SUMMARY | 2024-04-18 19:31 | XMS_ITS | Clinical Summary ---
Author Organization [facility] Address [address] [facility] [place] [address] Care Team Providers Care Patient Relations Specialist Name Role Phone Jennifer Palumbo PA-C Primary Care Provider [phone] Source Comments You are receiving this document as you are listed as the primary care provider,follow-up provider, or the patient has been referred to you for consultation.This is in compliance with the Medicare and[facility] Hospital[facility] EHR Incentive Program,which states Providers who transition their patient to another setting of careor provider of care or refers their patient to another provider of care shouldprovide summary care record for each transition of care or referral. [place] Allergies Active Allergy Reactions Criticality Noted Date Comments Amoxicillin Rash 06/09/2013 Penicillins 08/12/2001 Medications Medication Sig Dispensed Refills Start Date End Date Status cholecalciferol (VITAMIN D3) 1.25 MG (11620 UT) capsule Take 1 Capsule (50,000 Units) by mouth once every week. 12 Capsule 08/24/2023 Active cholecalciferol (VITAMIN D3) 1.25 MG (25620 UT) capsule Take 1 Capsule (50,000 Units) by mouth once every week. 12 Capsule 10/23/2023 Active Childrens Multivitamin/Iron (AKA POLY--ABRAHAM WITH IRON) 15 MG chewable tablet Chew and swallow 2 Tablets by mouth daily. Active cholecalciferol (VITAMIND3) 50 MCG (2000 UT) tablet Take 1 Tablet (2,000 Units) by mouth daily. Active Multiple Vitamins-Minerals (WOMENS MULTIVITAMIN) TABS Active Hospital, Clinic, or Other Facility Administered Medication Ordered Dose Route Frequency Start Date End Date Status medroxyPROGESTERone (DEPO-PROVERA) injection 150 mgIndications:Encounter for initial prescription of injectable contraceptive 150 mg IM EVERY 90 DAYS 10/17/2023 10/11/2024 Active Active Problems Problem Noted Date Diagnosed Date Morbid obesity with BMI of 40.0-44.9, adult 01/13 Morbid obesity with body mas s index (BMI) of 40.0 to 44.9 in adult 01/10/2024 Obesity, Class II, BMI 35-39.9 10/23/2023 Abnormal Papanicolaou smear of cervix 04/23/2008 Overview (06/02/2022): 2007 LSIL 2009 ASCUS HPV negative 2022 NILM HPV negative 32 y.o. PLAN, per ASCCP Guidelines: Cotest 05/2027 Resolved Problems Problem Noted Date Diagnosed Date Resolved Date Other viral conjunctivitis 06/20/2010 0 05/22/2022 Encounters Date Type Department Care Team Description 04/18/2024 Telephone [facility] [address][x] [employer] [address] [place] [address] Julio Cesar Gao RN Careplan: General 2024 Notes/Orders [facility] [address] [place] [address] Letitia Isaac 04/14/2024 8:00 AM REFRIGERATED NATIONAL TRUCK DRIVER Telemedicine [facility] [address] [place] [address] Sierra Palm RDN, LD Morbid obesity with BMI of 40.0-44.9, adult (HRC) (Primary Dx) 04/09/2024 8:30 AM REFRIGERATED NATIONAL TRUCK DRIVER Lab Visit Laboratory at [address] [address] Preop examination 04/09/2024 8:10 AM REFRIGERATED NATIONAL TRUCK DRIVER Pre-Op Visit [facility] [address] [place] [phone] Jennifer Palumbo PA-C Preop examination (Primary Dx); Morbid obesity with body mass index (BMI) of 40.0 to 44.9 in adult (HRC) 03/19/2024 8:00 AM REFRIGERATED NATIONAL TRUCK DRIVER Nursing Visit Nursing at [facility] [address] [place] [phone] Surveillance of contraceptive injection (Primary Dx) 02/05/2024 Notes/Orders [facility] [address] [address] Letitia Isaac 02/04/2024 2:40 PM CDT Office Visit [facility] [address] [address] Jayme Gardiner MBBS Morbid obesity with BMI of 40.0-44.9, adult (C) (Primary Dx) 02/01/2024 10:00 AM CDT Telemedicine [facility] [address] [address] Meenakshi León RN Morbid obesity with body mass index (BMI) of 40.0 to 44.9 in adult (C) (Primary Dx) 02/01/2024 E-Visit [facility] [address] [address] Mychart, Generic Provider from Last 3 Months Immunizations Name Administration Dates Next Due DTP 1988,1988,1988 OPV, Trivalent (Orimune or tOPV) 1988,12/1988 Pfizer Monovalent 12+ Purple Top 05/02/2021,07/2020,08/16/2020 Tdap 04/23/2008 Family History Medical History Relation Name Comments Hypertension Father Dad Cataract Negative Family History Diabetes, Type II Negative Family History Glaucoma Negative Family History Macular Degeneration Negative Family History Retinal Detachment Negative Family History Thyroid Disorder Negative Family History Relation Name Status Comments Father Dad Alive Mother Alive Social History Tobacco Use Types Packs/Day Years [...] on file Sexual Orientation Not on file Last Filed Vital Signs Vital Sign Reading Time Taken Comments Blood Pressure 138/83 04/09/2024 8:03 AM REFRIGERATED NATIONAL TRUCK DRIVER Pulse 74 04/09/2024 8:03 AM REFRIGERATED NATIONAL TRUCK DRIVER Temperature 36.7 C (98.1 F) 08/22/2023 8:00 AM CDT Respiratory Rate 18 09/04/2022 8:26 AM CDT Oxygen Saturation 99% 06/12/2022 10:02 AM REFRIGERATED NATIONAL TRUCK DRIVER Inhaled Oxygen Concentration - - Weight 122.5 kg (270 lb) 04/13/2024 8:18 PM REFRIGERATED NATIONAL TRUCK DRIVER Height 170.2 cm (5' 7) 04/13/2024 8:18 PM REFRIGERATED NATIONAL TRUCK DRIVER Body Mass Index 42.29 04/13/2024 8:18 PM REFRIGERATED NATIONAL TRUCK DRIVER Plan of Treatment Upcoming Encounters Date Type Department Care Team (Latest Contact Info) Description 04/25/2024 1:00 PM REFRIGERATED NATIONAL TRUCK DRIVER Hospital Encounter [facility] [address] [place] [address]. [place] [address] Jayme Gardiner MBBS [id number] [place] [address] 04/25/2024 1:00 PM REFRIGERATED NATIONAL TRUCK DRIVER - 04/25/2024 3:55 PM REFRIGERATED NATIONAL TRUCK DRIVER Surgery [facility] [address] [place] [address]. [place] [address] Jayme Gardiner MBBS [id number] [place] [address] XI Robotic Laparoscopic Vertical Sleeve Gastrectomy 05/01/2024 10:30 AM REFRIGERATED NATIONAL TRUCK DRIVER Appointment [facility] [address] [facility] [address] [place] [address] Bam Majano, RN 05/26/2024 8:30 AM REFRIGERATED NATIONAL TRUCK DRIVER Telemedicine [facility] [address] [facility] [address] [place], [place] [address] Sierra Palm RDN, LD [address] [place], [place] [address] 05/26/2024 9:00 AM REFRIGERATED NATIONAL TRUCK DRIVER Telemedicine [facility] [place] [address] [facility] [address] [place] [address] Bam Majano, MANDEEP 06/09/2024 10:00 AM REFRIGERATED NATIONAL TRUCK DRIVER Appointment Nursing at [address] [address] Scheduled Procedures Name Priority Associated Diagnoses Date/Ti me XI Robotic Laparoscopic Vertical Sleeve Gastrectomy Morbid obesity with BMI of 40.0-44.9, adult (HRC) 04/25/2024 1:00 PM REFRIGERATED NATIONAL TRUCK DRIVER Health Maintenance Due Date Last Done Comments HepB (1) 2007 COVID-19 Vaccine ( season) 2024 05/02/2021, 09/13/2020, 08/16/2020 Influenza (#1) 2024 Adult Preventive Visit 05/22/2024 , 09/20/2009, 04/23/2008 Diabetes Screening- (based on age and BMI) 08/19/2026 08/20/2023, 09/04/2022, 05/22/2022 Cervical Cancer Screening 05/22/20272022, 09/20/2009, 04/23/2008 DTaP/Tdap/Td (8 - Tdap) 02/13/2034 02/14/20 24, 04/23/2008, 08/25/1993, Additional history exists Zoster/Shingles (1 of 2) 2038 IPV (Polio) Completed 08/25/1993, 06/1989, 1988, Additional history exists HIV Screening (Preventive Services) Completed 05/22/2022 Hep C Screening (Preventive Services) Completed 05/22/2022 HPV Vaccine Aged Out No longer eligi ble based on patient's age to complete this topic HepA Aged Out No longer eligi ble based on patient's age to complete this topic Hib Aged Out No longer eligi ble based on patient's age to complete this topic MCV4 Aged Out No longer eligi ble based on patient's age to complete this topic Pneumococcal Aged Out No longer eligi ble based on patient's age to complete this topic Procedures Procedure Name Priority Date/Time Associated Diagnosis Comments TEST (URINE) Routine 04/09/2024 8:52 AM REFRIGERATED NATIONAL TRUCK DRIVER Preop examination COMPLETE BLOOD COUNT-W/DIFF Routine 04/09/2024 8:35 AM REFRIGERATED NATIONAL TRUCK DRIVER Preop examination BASIC METABOLIC PANEL Routine 04/09/2024 8:35 AM REFRIGERATED NATIONAL TRUCK DRIVER Preop examination CBC AND DIFFERENTIAL PANEL Routine 04/09/2024 8:35 AM REFRIGERATED NATIONAL TRUCK DRIVER Preop examination HGB A1C Routine 08/20/2023 7:41 AM CDT Screening for diabetes mellitus HIV 1/2 AG/AB 4TH GEN Routine 05/22/2022 10:11 AM REFRIGERATED NATIONAL TRUCK DRIVER Screening for HIV (human immunodeficiency virus) HEPATITIS C ANTIBODY, WITH REFLEX Routine 05/22/2022 10:11 AM REFRIGERATED NATIONAL TRUCK DRIVER Encounter for HCV screening test for low risk patient PAP TEST Routine 05/22/2022 10:07 AM REFRIGERATED NATIONAL TRUCK DRIVER Screening for malignant neoplasm of cervix from Last 3 Months or Most Recently Relevant to Health Maintenance Results * Test (Urine) (04/09/2024 8:52 AM REFRIGERATED NATIONAL TRUCK DRIVER) HCG, Urine Negative Negative 04/09/2024 8:56 AM REFRIGERATED NATIONAL TRUCK DRIVER [facility] Urine Non-blood Collection / Unknown 04/09/2024 8:52 AM REFRIGERATED NATIONAL TRUCK DRIVER 04/09/2024 8:52 AM REFRIGERATED NATIONAL TRUCK DRIVER Jennifer Palumbo PA-C LAB_1 [facility] [address] [place] [address], [facility] * Complete Blood Count-W/Diff (04/09/2024 8:35 AM REFRIGERATED NATIONAL TRUCK DRIVER) WBC 7.4 3.5 - 10.5 x10(9)/L 04/09/2024 8:57 AM REFRIGERATED NATIONAL TRUCK DRIVER [facility] RBC 4.88 3.90 - 5.03 x10(12)/L 04/09/2024 8:57 AM [facility] Hemoglobin 14.2 12.0 - 15.5 g/dL 04/09/2024 8:57 AM [facility] HCT 42.0 34.9 - 44.5 % 04/09/2024 8:57 AM [facility] MCV 86.1 80.0 - 100.0 fL 04/09/2024 8:57 AM [facility] MCH 29.1 27.6 - 33.3 pg 04/09/2024 8:57 AM [facility] MCHC 33.8 31.5 - 35.2 g/dL 04/09/2024 8:57 AM [facility] RDW 12.3 11.9 - 15.5 % 04/09/2024 8:57 AM [facility] Platelets 266 150 - 450 x10(9)/L 04/09/2024 8:57 AM REFRIGERATED NATIONAL TRUCK DRIVER [facility] Neutrophil Absolute 4.2 1.7 - 7.0 10(9)/L 04/09/2024 8:57 AM REFRIGERATED NATIONAL TRUCK DRIVER [facility] Lymphocyte Absolute 2.4 1.0 - 4.8 10(9)/L 04/09/2024 8:57 AM REFRIGERATED NATIONAL TRUCK DRIVER [facility] Monocyte Absolute 0.6 0.2 - 0.9 10(9)/L 04/09/2024 8:57 AM REFRIGERATED NATIONAL TRUCK DRIVER [facility] Eosinophil Absolute 0.1 0.0 - 0.5 10(9)/L 04/09/2024 8:57 AM REFRIGERATED NATIONAL TRUCK DRIVER [facility] Basophil Absolute 0.0 0.0 - 0.3 10(9)/L 04/09/2024 8:57 AM [facility] Immature Granulocyte % 0.1 0.0 - 0.5 % 04/09/2024 8:57 AM [facility] Blood Venipuncture / Unknown 04/09/2024 8:35 AM REFRIGERATED NATIONAL TRUCK DRIVER 04/09/2024 8:35 AM REFRIGERATED NATIONAL TRUCK DRIVER Jennifer Palumbo PA-C LAB_1 [facility] [address] [place] [address], [facility] * (ABNORMAL) BMP (04/09/2024 8:35 AM REFRIGERATED NATIONAL TRUCK DRIVER) Sodium 138 136 - 145 mmol/L 04/09/2024 11:42 AM [facility] Potassium 4.0 3.5 - 5.1 mmol/L 04/09/2024 11:42 AM [facility] Chloride 108 98 - 109 mmol/L 04/09/2024 11:42 AM [facility] CO2 23 20 - 29 mmol/L 04/09/2024 11:42 AM [facility] Anion Gap 7 6 - 16 mmol/L 04/09/2024 11:42 AM [facility] Calcium 9.7 8.4 - 10.4 mg/dL 04/09/2024 11:42 AM [facility] BUN 11 7 - 26 mg/dL 04/09/2024 11:42 AM [facility] Creatinine 0.73 0.55 - 1.02 mg/dL 04/09/2024 11:42 AM [facility] Glucose 104(H) 70 - 100 mg/dL 04/09/2024 11:42 AM [facility] Comment:The given reference range is for the fasting state. Non-fasting reference range for glucose is 70 - 180 mg/dL. GFR, Estimated >60 >60 mL/min/1. 73m2 04/09/2024 11:42 AM [facility] Hours Fasting 0.1 8 - 12 Hours 04/09/2024 11:42 AM [facility] Blood Venipuncture / Unknown 04/09/2024 8:35 AM REFRIGERATED NATIONAL TRUCK DRIVER 04/09/2024 8:35 AM REFRIGERATED NATIONAL TRUCK DRIVER Jennifer Palumbo PA-C LAB_1 Performing Organization Address [facility] Co de Phone Number [facility] [address] * Hgb A1c (08/20/2023 7:41 AM CDT) Hemoglobin A1C 4.8 <=5.6 % 08/20/2023 11:[address] [facility] Estimated Average Glucose (Calc) 91 < 117 mg/dL 08/20/2023 11:[address] [facility] Comment:Estimated average gl ucose (eAG) converts A1c into glucose units (mg/dL) and estimates average glucose over the past approximately 3 months. The eAG reference interval (<117 mg/dL) corresponds to an A1c of <5.7%. Blood Venipuncture / Unknown 08/20/2023 7:41 AM CDT 08/20/2023 7:41 AM CDT Shruthi Araiza PA-C LAB_1 Performing Organization Address [facility] de Phone Number [facility] [address] * HIV 1/2 Ag/Ab 4th Generation (05/22/2022 10:11 AM REFRIGERATED NATIONAL TRUCK DRIVER) HIV 1/2 Antigen/Anti body (4th generation) Negative (Non Reactive) Negative (Non Reactive) 05/22/2022 3:36 PM REFRIGERATED NATIONAL TRUCK DRIVER [facility] Comment:HIV-1 p24 Antigen an d HIV-1/HIV-2 Antibody not detected Blood Venipuncture / Unknown 05/22/2022 10:11 AM REFRIGERATED NATIONAL TRUCK DRIVER 05/22/2022 10:11 AM REFRIGERATED NATIONAL TRUCK DRIVER Jennifer Palumbo PA-C LAB_1 Performing Organization Address City/[facility] Co de Phone Number [facility] [address] [address], [facility] [phone] * Hepatitis C Antibody, with Reflex (05/22/2022 10:11 AM REFRIGERATED NATIONAL TRUCK DRIVER) Hepatitis C Antibody Negative (Non Reactive) Negative (Non Reactive) 05/22/2022 3:31 PM REFRIGERATED NATIONAL TRUCK DRIVER [facility] Comment:Antibodies to HCV no t detected. Does not exclude the possiblity of exposure to HCV. Blood Venipuncture / Unknown 05/22/2022 10:11 AM REFRIGERATED NATIONAL TRUCK DRIVER 05/22/2022 10:11 AM REFRIGERATED NATIONAL TRUCK DRIVER Jennifer Palumbo PA-C LAB[facility]1 [facility] [address] [address], [facility] [phone] * PAP Test (05/22/2022 10:07 AM REFRIGERATED NATIONAL TRUCK DRIVER) Case Report Pap Case: [id number] Authorizing Provider: Jennifer Palumbo PA-C Collected: 05/22/2022 1007 Ordering Location: [facility] Received: 05/22/2022 1041 Practice First Screen: Ashleigh Anderson Specimen: Pap Test, Routine, Cervix/Endocervix 06/02/2022 9:50 AM [facility] Pap Specimen Adequacy Satisfactory for evaluation, endocervical/deng sformation zone component absent. 06/02/2022 9:50 AM [facility] Pap Interpretation (NILM) Negative for intraepithelial lesion or malignancy. 06/02/2022 9:50 AM [facility] Pap Disclaimer The Pap test is a screening test designed to aid in the detection of cervical cancer and its precursor lesions. It is not a diagnostic procedure and should not be used as the sole means of detecting cervical cancer. Both false-positive and false-negative results may occur. 06/02/2022 9:50 AM [facility] Gross Description The specimen is received in SurePath fixative and properly labeled. 1 Pap-stained SurePath slide is prepared. 06/02/2022 9:50 AM REFRIGERATED NATIONAL TRUCK DRIVER [facility] Embedded Images 9:50 AM [facility] Other Specimen Type ENTIRE ENDOCERVIX / Unknown 05/22/2022 10:07 AM REFRIGERATED NATIONAL TRUCK DRIVER 05/22/2022 10:41 AM REFRIGERATED NATIONAL TRUCK DRIVER Comment:LMP: No LMP recorded . Jennifer Palumbo PA-C LAB PATHOLOGY [address] [address], [facility] [phone] from Last 3 Months or Most Recently Relevant to Health Maintenance Care Teams Patient Relations Specialist Relationship Specialty Start Date End Date Jennifer Palumbo PA-C [address] [place] [address] PCP - General Physician Slitter Helper 02/02/22
--- OUTSIDE RECORDS SUMMARY | 2024-04-18 19:31 | XMS_ITS | Encounter Summary ---
Author Organization [email or web address] Address [address] [place] [address] Care Team Providers Care Gamb Cutter Name Role Phone Jennifer Palumbo PA-C Primary Care Provider [phone] Encounter Details Date Type Department Care Team (Late st Contact Info) Description 01/11/2024 Notes/Orders [facility] [address] [facility] [address] [place], [place] [address] Letitia Isaac Social History Tobacco Use Types [...] (Latest Contact Info) Description 04/25/2024 1:00 PM ASSISTANT SPEECH LANGUAGE PATHOLOGIST Hospital Encounter [facility] [address] [place], [place] [address] Jayme Gardiner MBBS [address] [facility] [address] [place] [address] 04/25/2024 1:00 PM ASSISTANT SPEECH LANGUAGE PATHOLOGIST - 04/25/2024 3:55 PM ASSISTANT SPEECH LANGUAGE PATHOLOGIST Surgery [facility] [address] [facility] [place] [address] Jayme Gardiner MBBS [address] [facility] [address] [place] [address] XI Robotic Laparoscopic Vertical Sleeve Gastrectomy 05/01/2024 10:30 AM ASSISTANT SPEECH LANGUAGE PATHOLOGIST Appointment [facility] [address] [place] [address] [place] [address] Bam Majano, MANDEEP 05/26/2024 8:30 AM ASSISTANT SPEECH LANGUAGE PATHOLOGIST Telemedicine [facility] [address] [address] Sierra Palm RDN, [address] [place] [address] 05/26/2024 9:00 AM ASSISTANT SPEECH LANGUAGE PATHOLOGIST Telemedicine [facility] [address] [place] [address] Bam Majano, MANDEEP 06/09/2024 10:00 AM ASSISTANT SPEECH LANGUAGE PATHOLOGIST Appointment Nursing at [address] [address] Scheduled Procedures Name Priority Associated Diagnoses Date/Ti me XI Robotic Laparoscopic Vertical Sleeve Gastrectomy Morbid obesity with BMI of 40.0-44.9, adult (HRC) 04/25/2024 1:00 PM ASSISTANT SPEECH LANGUAGE PATHOLOGIST documented as of this encounter Visit Diagnoses Not on filedocumented in this encounter Care Teams Gamb Cutter Relationship Specialty Start Date End Date Jennifer Palumbo PA-C [address] [place] [address] PCP - General Physician Assistant Department Manager 02/02/22 documented as of this encounter
--- OUTSIDE RECORDS SUMMARY | 2024-04-18 19:31 | XMS_ITS | Encounter Summary ---
Author Organization [facility] Address [address] [place] [address] Care Team Providers Care Labor Custodian Name Role Phone Jennifer Palumbo PA-C Primary Care Provider [phone] Encounter Details Date Type Department Care Team (Late st Contact Info) Description 04/09/2024 8:30 AM OPERATIONS LABEL CLERK Lab Visit Laboratory at [address] [address] Preop examination Social History Tobacco Use Types Packs/Day Years [...] (Latest Contact Info) Description 04/25/2024 1:00 PM OPERATIONS LABEL CLERK Hospital Encounter [facility] Operating Room [address] [facility]. [place], [place] [address] Jayme Gardiner MBBS [address] [facility] [address] [place], [place] [address] 04/25/2024 1:00 PM OPERATIONS LABEL CLERK - 04/25/2024 3:55 PM OPERATIONS LABEL CLERK Surgery Rest[facility] Operating Room [address] [facility] [place] [address] Jayme Gardiner MBBS [address] [facility] [address] [place] [address] XI Robotic Laparoscopic Vertical Sleeve Gastrectomy 05/01/2024 10:30 AM OPERATIONS LABEL CLERK Appointment [facility] [place] [address] [facility] [address] [place] [address] Bam Majano, MANDEEP 05/26/2024 8:30 AM OPERATIONS LABEL CLERK Telemedicine [facility] [place] [address] [place] [address] [place] [address] Sierra Palm RDN, LD [address] [place] [address] 05/26/2024 9:00 AM OPERATIONS LABEL CLERK Telemedicine [facility] [address] [place] [address] Bam Majano, MANDEEP 06/09/2024 10:00 AM OPERATIONS LABEL CLERK Appointment Nursing at [address] [phone] Scheduled Procedures Name Priority Associated Diagnoses Date/Ti me XI Robotic Laparoscopic Vertical Sleeve Gastrectomy Morbid obesity with BMI of 40.0-44.9, adult (HRC) 04/25/2024 1:00 PM OPERATIONS LABEL CLERK documented as of this encounter Procedures Procedure Name Priority Date/Time Associated Diagnosis Comments TEST (URINE) Routine 04/09/2024 8:52 AM OPERATIONS LABEL CLERK Preop examination CBC AND DIFFERENTIAL PANEL Routine 04/09/2024 8:35 AM OPERATIONS LABEL CLERK Preop examination COMPLETE BLOOD COUNT-W/DIFF Routine 04/09/2024 8:35 AM OPERATIONS LABEL CLERK Preop examination BASIC METABOLIC PANEL Routine 04/09/2024 8:35 AM OPERATIONS LABEL CLERK Preop examination documented in this encounter Results * Test (Urine) (04/09/2024 8:52 AM OPERATIONS LABEL CLERK) HCG, Urine Negative Negative 04/09/2024 8:56 AM OPERATIONS LABEL CLERK [facility] Urine Non-blood Collection / Unknown 04/09/2024 8:52 AM OPERATIONS LABEL CLERK 04/09/2024 8:52 AM OPERATIONS LABEL CLERK Jennifer Palumbo PA-C LAB_1 [facility] [address] [place] [address], [facility] * Complete Blood Count-W/Diff (04/09/2024 8:35 AM OPERATIONS LABEL CLERK) Pathologist [facility] WBC 7.4 3.5 - 10.5 x10(9)/L 04/09/2024 8:57 AM OPERATIONS LABEL CLERK [facility] RBC 4.88 3.90 - 5.03 x10(12)/L 04/09/2024 8:57 AM OPERATIONS LABEL CLERK [facility] Hemoglobin 14.2 12.0 - 15.5 g/dL 04/09/2024 8:57 AM OPERATIONS LABEL CLERK [facility] HCT 42.0 34.9 - 44.5 % 04/09/2024 8:57 AM OPERATIONS LABEL CLERK [facility] MCV 86.1 80.0 - 100.0 fL 04/09/2024 8:57 AM OPERATIONS LABEL CLERK [facility] MCH 29.1 27.6 - 33.3 pg 04/09/2024 8:57 AM OPERATIONS LABEL CLERK [facility] MCHC 33.8 31.5 - 35.2 g/dL 04/09/2024 8:57 AM OPERATIONS LABEL CLERK [facility] RDW 12.3 11.9 - 15.5 % 04/09/2024 8:57 AM OPERATIONS LABEL CLERK [facility] Platelets 266 150 - 450 x10(9)/L 04/09/2024 8:57 AM OPERATIONS LABEL CLERK [facility] Neutrophil Absolute 4.2 1.7 - 7.0 10(9)/L 04/09/2024 8:57 AM [facility] Lymphocyte Absolute 2.4 1.0 - 4.8 10(9)/L 04/09/2024 8:57 AM [facility] Monocyte Absolute 0.6 0.2 - 0.9 10(9)/L 04/09/2024 8:57 AM [facility] Eosinophil Absolute 0.1 0.0 - 0.5 10(9)/L 04/09/2024 8:57 AM [facility] Basophil Absolute 0.0 0.0 - 0.3 10(9)/L 04/09/2024 8:57 AM [facility] Immature Granulocyte % 0.1 0.0 - 0.5 % 04/09/2024 8:57 AM [facility] Blood Venipuncture / Unknown 04/09/2024 8:35 AM OPERATIONS LABEL CLERK 04/09/2024 8:35 AM OPERATIONS LABEL CLERK Jennifer Palumbo PA-C LAB_1 Performing Organization Address City/State/[facility] Co de Phone Number [facility] [address] [place] [address] * (ABNORMAL) BMP (04/09/2024 8:35 AM OPERATIONS LABEL CLERK) Sodium 138 136 - 145 mmol/L 04/09/2024 11:42 AM [facility] Potassium 4.0 3.5 - 5.1 mmol/L 04/09/2024 11:42 AM [facility] Chloride 108 98 - 109 mmol/L 04/09/2024 11:42 AM [facility] CO2 23 20 - 29 mmol/L 04/09/2024 11:42 AM [facility] Anion Gap 7 6 - 16 mmol/L 04/09/2024 11:42 AM [facility] Calcium 9.7 8.4 - 10.4 mg/dL 04/09/2024 11:42 AM [facility] BUN 11 7 - 26 mg/dL 04/09/2024 11:42 AM [facility] Creatinine 0.73 0.55 - 1.02 mg/dL 04/09/2024 11:42 AM OPERATIONS LABEL CLERK [facility] Glucose 104(H) 70 - 100 mg/dL 04/09/2024 11:42 AM [facility] Comment:The given reference range is for the fasting state. Non-fasting reference range for glucose is 70 - 180 mg/dL. GFR, Estimated >60 >60 mL/min/1. 73m2 04/09/2024 11:42 AM OPERATIONS LABEL CLERK [facility] Hours Fasting 0.1 8 - 12 Hours 04/09/2024 11:42 AM [facility] Blood Venipuncture / Unknown 04/09/2024 8:35 AM OPERATIONS LABEL CLERK 04/09/2024 8:35 AM OPERATIONS LABEL CLERK Jennifer Palumbo PA-C LAB_1 Performing Organization Address City/State/[facility] Co de Phone Number [facility] [address] documented in this encounter Visit Diagnoses Diagnosis Morbid obesity with BMI of 40.0-44.9, adult (HRC)- Primary Preop examination Preoperative examination, unspecified Morbid obesity with BMI of 40.0-44.9, adult (HRC) documented in this encounter Care Teams Labor Custodian Relationship Specialty Start Date End Date Jennifer Palumbo PA-C [address] [place] [address] PCP - General Physician Staff Development Manager 02/02/22 documented as of this encounter
--- OUTSIDE RECORDS SUMMARY | 2024-04-18 19:31 | XMS_ITS | Encounter Summary ---
Author Organization [facility] Address [address] [place] [address] Care Team Providers Care Foster Parent Name Role Phone Jennifer Palumbo PA-C Primary Care Provider [phone] Encounter Details Date Type Department Care Team (Late st Contact Info) Description 2024 Notes/Orders [facility] [address] [facility] [address] [place], [place] [phone] Letitia Isaac Social History Tobacco Use Types [...] (Latest Contact Info) Description 04/25/2024 1:00 PM SILVERWARE SUPERVISOR Hospital Encounter [facility] Operating Room [address] [place], [place] [address] Jayme Gardiner MBBS [address] [facility] [address] [place] [address] 04/25/2024 1:00 PM SILVERWARE SUPERVISOR - 04/25/2024 3:55 PM SILVERWARE SUPERVISOR Surgery [facility] Operating Room [address] [facility] [place] [address] Jayme Gardiner MBBS [address] [facility] [address] [place] [address] XI Robotic Laparoscopic Vertical Sleeve Gastrectomy 05/01/2024 10:30 AM SILVERWARE SUPERVISOR Appointment [facility] [place] [address] [place] [address] [place] [address] Bam Majano, MANDEEP 05/26/2024 8:30 AM SILVERWARE SUPERVISOR Telemedicine [facility] [address] [address] Sierra Palm RDN, [address] [place] [address] 05/26/2024 9:00 AM SILVERWARE SUPERVISOR Telemedicine [facility] [address] [address] Bam Majano, MANDEEP 06/09/2024 10:00 AM SILVERWARE SUPERVISOR Appointment Nursing at [address] [phone] Scheduled Procedures Name Priority Associated Diagnoses Date/Ti me XI Robotic Laparoscopic Vertical Sleeve Gastrectomy Morbid obesity with BMI of 40.0-44.9, adult (HRC) 04/25/2024 1:00 PM SILVERWARE SUPERVISOR documented as of this encounter Visit Diagnoses Not on filedocumented in this encounter Care Teams Foster Parent Relationship Specialty Start Date End Date Jennifer Palumbo PA-C [address] [place] [address] PCP - General Physician Arc And Gas Welder 9/22/22 documented as of this encounter
--- OUTSIDE RECORDS SUMMARY | 2024-04-18 19:31 | XMS_ITS | Encounter Summary ---
Author Organization [facility] Address [address] [place] [address] Care Team Providers Care Boat Carpenter Name Role Phone Jennifer Palumbo PA-C Primary Care Provider Encounter Details Date Type Department Care Team (Late st Contact Info) Description 01/10/2024 Notes/Orders [facility] [address] [facility] [address] [place], [place] [address] Letitia Isaac Social History Tobacco Use Types [...] (Latest Contact Info) Description 04/25/2024 1:00 PM SCREW MACHINE OPERATOR SWISS TYPE Hospital Encounter [facility] Operating Room [address] [place], [place] [address] Jayme Gardiner MBBS [address] [facility] [address] [place] [address] 04/25/2024 1:00 PM SCREW MACHINE OPERATOR SWISS TYPE - 04/25/2024 3:55 PM SCREW MACHINE OPERATOR SWISS TYPE Surgery [facility] Operating Room [address] [facility] [place] [address] Jayme Gardiner MBBS [address] [facility] [address] [place] [address] XI Robotic Laparoscopic Vertical Sleeve Gastrectomy 05/01/2024 10:30 AM SCREW MACHINE OPERATOR SWISS TYPE Appointment [facility] [place] [address] [place] [address] [place] [address] Bam Majano, MANDEEP 05/26/2024 8:30 AM SCREW MACHINE OPERATOR SWISS TYPE Telemedicine [facility] [address] [address] Sierra Palm RDN, [address] [place] [address] 05/26/2024 9:00 AM SCREW MACHINE OPERATOR SWISS TYPE Telemedicine [facility] [address] [place] [address] Bam Majano, MANDEEP 06/09/2024 10:00 AM SCREW MACHINE OPERATOR SWISS TYPE Appointment Nursing at [address] [address] Scheduled Procedures Name Priority Associated Diagnoses Date/Ti me XI Robotic Laparoscopic Vertical Sleeve Gastrectomy Morbid obesity with BMI of 40.0-44.9, adult (HRC) 04/25/2024 1:00 PM SCREW MACHINE OPERATOR SWISS TYPE documented as of this encounter Visit Diagnoses Not on filedocumented in this encounter Care Teams Boat Carpenter Relationship Specialty Start Date End Date Jennifer Palumbo PA-C [address] [place] [address] PCP - General Physician Linotype Operator 02/02/22 documented as of this encounter
--- NOTE | 2024-04-18 19:50 | ED.GENADULT ---
HPI - General Adult General Chief complaint: Arrhythmia/Palpitations Stated complaint: HEART RATE UP TO 210 JUST WALKING AT HOME Time Seen by Provider: 04/18/24 19:46 History of Present Illness HPI narrative: Pt was walking around house and suddenly felt heart beating out of chest and noticed her apple watch showed her HR at 210. Pt states she felt dizzy and SOB when having this episode. Pt was in the ER for similar episode 03/29 and was sent home with Zio patch. Pt is experiencing pain in R side of her neck. 34-year-old woman presenting to the emergency department after experiencing rapid heart rate. I believe she did climb some stairs and suddenly felt her heart beating very hard. Heart rate was measured at 210 with her Apple watch. Busby lightheaded and short of breath. Similar event 3 weeks ago in this emergency department where I evaluated this patient. Was placed on a ZIO patch and has just turned in about 3 days ago. Did not have any significant events while wearing the patch. Appear to be in sinus tachycardia when seen prior in the emergency department. Today by the time she arrives here is no longer tachycardic. Reports being seen in urgent care earlier today after having had soreness in the left side of her neck and left ear discomfort IV was some pressure in crackling sounds over the last month. Since this elevated heart rate this evening she is more sore at the left neck. Was recommended for Flonase but has not picked this up yet. She is not describing a pulsatile sound Related Data Home Medications ?Medication ?Instructions ?Recorded ?Confirmed estradiol cypionate IM 02/14/24 04/18/24 [Depo-Estradiol] Previous Rx's ?Medication ?Instructions ?Recorded fluticasone propionate 50 1 spray intranasal BID #16 grams 04/18/24 mcg/actuation nasal spray,suspension (Flonase Allergy Relief) Allergies Allergy/AdvReac Type Severity Reaction Status Date / Time amoxicillin Allergy Verified 04/18/24 19:42 Penicillins Allergy Verified 04/18/24 19:42 Review of Systems Status of ROS: Reports: 6 or more systems reviewed and unremarkable except as noted in History and below [facility] Social History Smoking Status: Never smoker How often do you have a drink containing alcohol: never AUDIT-C Alcohol total score: 0 Non-prescribed substance use: denies use Exam Narrative: Exam Narrative: Very pleasant. NAD. Skin warm and dry. Is well-perfused breathing easily. Lungs are clear. Heart is in regular rate and rhythm without murmur rub or gallop. Neck is supple. She has sore the musculature of the left side of her neck. I do not feel any pulsatile masses. She does strong and equal carotid upstroke. TMs are clear. Const: Vital Signs, click to edit/add: Vital Signs - 24 hr 04/18/24 19:35 04/18/24 19:40 04/18/24 19:41 Temperature 98.2 F Pulse Rate 90 Pulse Rate [Left P ulse Oximeter] 89 Respiratory Rate 18 Blood Pressure 132/86 Blood Pressure [Ri ght Upper Arm] 132/86 Pulse Oximetry 100 100 Oxygen Delivery Me thod Room Air 04/18/24 19:45 04/18/24 20:00 04/18/24 20:15 Temperature Pulse Rate 97 90 92 Pulse Rate [Left P ulse Oximeter] Respiratory Rate Blood Pressure Blood Pressure [Ri ght Upper Arm] Pulse Oximetry 99 99 100 Oxygen Delivery Me thod 04/18/24 20:30 04/18/24 20:45 Temperature Pulse Rate 83 95 Pulse Rate [Left P ulse Oximeter] Respiratory Rate Blood Pressure Blood Pressure [Ri ght Upper Arm] Pulse Oximetry 99 100 Oxygen Delivery Me thod Documenting provider has reviewed patient's vital signs: yes Course Vital Signs Vital signs: Initial Vital Signs Temperature 98.2 F 04/18/24 19:35 Temperature Source Temporal Artery Scan 04/18/24 19:35 Pulse Rate 89 04/18/24 19:35 Respiratory Rate 18 04/18/24 19:35 Blood Pressure 132/86 04/18/24 19:35 Blood Pressure Mean 101 04/18/24 19:35 Blood Pressure Position Supine 04/18/24 19:35 Pulse Oximetry 100 04/18/24 19:35 Oxygen Delivery Method Room Air 04/18/24 19:35 Vital Signs Temperature 98.2 F 04/18/24 19:35 Pulse Rate 89 04/18/24 19:35 Respiratory Rate 18 04/18/24 19:35 Blood Pressure 132/86 04/18/24 19:35 Pulse Oximetry 100 04/18/24 19:35 Oxygen Delivery Method Room Air 04/18/24 19:35 Temperature 98.2 F 04/18/24 19:35 Pulse Rate 95 04/18/24 20:45 Respiratory Rate 18 04/18/24 19:35 Blood Pressure 132/86 04/18/24 19:40 Pulse Oximetry 100 04/18/24 20:45 Oxygen Delivery Method Room Air 04/18/24 19:35 Medical Decision Making MDM Narrative Medical decision making narrative: Do not think we need to repeat laboratory evaluation today. Monitor on refrigerating engineer for a time. Initial EKG is independently reviewed by me. Computer suggests atrial flutter with variable AV block at a rate of 81 however I disagree I think this is sinus. Repeat EKG as appear to be in sinus on monitor, with new or EKG machine by my read shows normal sinus clearly at rate of 87. I did call to Cardiology and together reviewed side patch monitoring. During period of monitoring Ely did not go above 160 and when reporting symptoms actually was not tachycardic it appears. Remained in sinus rhythm the entire time. Recommendations are for treadmill stress test with cardiology follow-up. No medication recommendations at this time. It does sound as though these episodes of more marked tachycardia have been under physical stress for example climbing up stairs. Discussed these findings with Ely. She does have upcoming surgery; gastric sleeve procedure. Would discuss this further with primary apparently has not yet seen ZIO patch results, about whether not to postpone surgery pending further cardiac workup. Provided copies of EKGs to her. Appears to be experiencing paroxysmal sinus tachycardia. No further events during time of monitoring in the emergency department See patient discharge plan for further discussion Continue to stay well-hydrated. Please take these copies of your EKGs to follow-up appointments. Recommendations from Cardiology are to schedule with them ([facility]) and/or your primary to schedule a treadmill stress test. You might end up being referred to electrophysiology as well for consultation. From initial review of your ZIO patch results it appears that you are persistently in a sinus rhythm. Medical Records Medical records reviewed: Yes I reviewed the patient's medical records Discharge Plan Discharge Clinical Impression: Paroxysmal sinus tachycardia Patient Disposition: Home, Self-Care Condition: Improved Additional Instructions: Continue to stay well-hydrated. Please take these copies of your EKGs to follow-up appointments. Recommendations from Cardiology are to schedule with them ([facility]) and/or your primary to schedule a treadmill stress test. You might end up being referred to electrophysiology as well for consultation. From initial review of your ZIO patch results it appears that you are persistently in a sinus rhythm. Prescriptions: No Action estradiol cypionate [Depo-Estradiol] IM fluticasone propionate [Flonase Allergy Relief] 50 mcg/actuation spray,suspension 1 spray intranasal BID Qty: 16 0RF Rx Instructions: administer into each nostril Follow Up/Referrals: Provider,Not a Local [Primary Care Provider] - Stand Alone Forms: [employer] Info Instructions
--- OUTSIDE RECORDS SUMMARY | 2024-04-18 20:23 | XMS_ITS | Encounter Summary ---
Author Organization [facility] Address [address] [place] [address] Care Team Providers Care Boiler Out Name Role Phone Jennifer Palumbo PA-C Primary Care Provider [phone] Encounter Details Date Type Department Care Team (Late st Contact Info) Description 04/09/2024 8:30 AM ARMATURE STRAIGHTENER Lab Visit Laboratory at [address] [address] Preop examination Social History Tobacco Use Types [...] (Latest Contact Info) Description 04/25/2024 1:00 PM ARMATURE STRAIGHTENER Hospital Encounter [facility] [address] [facility]. [place], [place] [address] Jayme Gardiner MBBS [address] [facility] [address] [place], [place] [address] 04/25/2024 1:00 PM ARMATURE STRAIGHTENER - 04/25/2024 3:55 PM ARMATURE STRAIGHTENER Surgery [facility] 6500 [facility] [place] [place] [address] Jayme Gardiner MBBS [address] [facility] [address] [place] [address] XI Robotic Laparoscopic Vertical Sleeve Gastrectomy 05/01/2024 10:30 AM ARMATURE STRAIGHTENER Appointment [facility] [place] [address] [facility] [address] [place] [address] Bam Majano, MANDEEP 05/26/2024 8:30 AM ARMATURE STRAIGHTENER Telemedicine [facility] [place] [address] [place] [address] [place] [address] Sierra Palm RDN, LD 3800 [place] [address] 05/26/2024 9:00 AM ARMATURE STRAIGHTENER Telemedicine [facility] [address] [place] [address] Bam Majano, MANDEEP 06/09/2024 10:00 AM ARMATURE STRAIGHTENER Appointment Nursing at [address] [phone] Scheduled Procedures Name Priority Associated Diagnoses Date/Ti me XI Robotic Laparoscopic Vertical Sleeve Gastrectomy Morbid obesity with BMI of 40.0-44.9, adult (HRC) 04/25/2024 1:00 PM ARMATURE STRAIGHTENER documented as of this encounter Procedures Procedure Name Priority Date/Time Associated Diagnosis Comments TEST (URINE) Routine 04/09/2024 8:52 AM ARMATURE STRAIGHTENER Preop examination CBC AND DIFFERENTIAL PANEL Routine 04/09/2024 8:35 AM ARMATURE STRAIGHTENER Preop examination COMPLETE BLOOD COUNT-W/DIFF Routine 04/09/2024 8:35 AM ARMATURE STRAIGHTENER Preop examination BASIC METABOLIC PANEL Routine 04/09/2024 8:35 AM ARMATURE STRAIGHTENER Preop examination documented in this encounter Results * Test (Urine) (04/09/2024 8:52 AM ARMATURE STRAIGHTENER) HCG, Urine Negative Negative 04/09/2024 8:56 AM ARMATURE STRAIGHTENER [facility] Urine Non-blood Collection / Unknown 04/09/2024 8:52 AM ARMATURE STRAIGHTENER 04/09/2024 8:52 AM ARMATURE STRAIGHTENER Jennifer Palumbo PA-C LAB_1 [facility] [address] [place] [address], [facility] * Complete Blood Count-W/Diff (04/09/2024 8:35 AM ARMATURE STRAIGHTENER) Pathologist [facility] WBC 7.4 3.5 - 10.5 x10(9)/L 04/09/2024 8:57 AM ARMATURE STRAIGHTENER [facility] RBC 4.88 3.90 - 5.03 x10(12)/L 04/09/2024 8:57 AM ARMATURE STRAIGHTENER [facility] Hemoglobin 14.2 12.0 - 15.5 g/dL 04/09/2024 8:57 AM ARMATURE STRAIGHTENER [facility] HCT 42.0 34.9 - 44.5 % 04/09/2024 8:57 AM ARMATURE STRAIGHTENER [facility] MCV 86.1 80.0 - 100.0 fL 04/09/2024 8:57 AM ARMATURE STRAIGHTENER [facility] MCH 29.1 27.6 - 33.3 pg 04/09/2024 8:57 AM ARMATURE STRAIGHTENER [facility] MCHC 33.8 31.5 - 35.2 g/dL 04/09/2024 8:57 AM ARMATURE STRAIGHTENER [facility] RDW 12.3 11.9 - 15.5 % 04/09/2024 8:57 AM ARMATURE STRAIGHTENER [facility] Platelets 266 150 - 450 x10(9)/L 04/09/2024 8:57 AM ARMATURE STRAIGHTENER [facility] Neutrophil Absolute 4.2 1.7 - 7.0 10(9)/L 04/09/2024 8:57 AM [facility] Lymphocyte Absolute 2.4 1.0 - 4.8 10(9)/L 04/09/2024 8:57 AM [facility] Monocyte Absolute 0.6 0.2 - 0.9 10(9)/L 04/09/2024 8:57 AM [facility] Eosinophil Absolute 0.1 0.0 - 0.5 10(9)/L 04/09/2024 8:57 AM [facility] Basophil Absolute 0.0 0.0 - 0.3 10(9)/L 04/09/2024 8:57 AM [facility] Immature Granulocyte % 0.1 0.0 - 0.5 % 04/09/2024 8:57 AM [facility] Blood Venipuncture / Unknown 04/09/2024 8:35 AM ARMATURE STRAIGHTENER 04/09/2024 8:35 AM ARMATURE STRAIGHTENER Jennifer Palumbo PA-C LAB_1 Performing Organization Address City/State/[facility] Co de Phone Number [facility] [address] [place] [address] * (ABNORMAL) BMP (04/09/2024 8:35 AM ARMATURE STRAIGHTENER) Sodium 138 136 - 145 mmol/L 04/09/2024 11:42 AM [facility] Potassium 4.0 3.5 - 5.1 mmol/L 04/09/2024 11:42 AM [facility] Chloride 108 98 - 109 mmol/L 04/09/2024 11:42 AM [facility] CO2 23 20 - 29 mmol/L 04/09/2024 11:42 AM [facility] Anion Gap 7 6 - 16 mmol/L 04/09/2024 11:42 AM [facility] Calcium 9.7 8.4 - 10.4 mg/dL 04/09/2024 11:42 AM [facility] BUN 11 7 - 26 mg/dL 04/09/2024 11:42 AM [facility] Creatinine 0.73 0.55 - 1.02 mg/dL 04/09/2024 11:42 AM ARMATURE STRAIGHTENER [facility] Glucose 104(H) 70 - 100 mg/dL 04/09/2024 11:[address] [facility] Comment:The given reference range is for the fasting state. Non-fasting reference range for glucose is 70 - 180 mg/dL. GFR, Estimated >60 >60 mL/min/1. 73m2 04/09/2024 11:42 AM ARMATURE STRAIGHTENER [facility] Hours Fasting 0.1 8 - 12 Hours 04/09/2024 11:[address] [facility] Blood Venipuncture / Unknown 04/09/2024 8:35 AM ARMATURE STRAIGHTENER 04/09/2024 8:35 AM ARMATURE STRAIGHTENER Jennifer Palumbo PA-C LAB_1 Performing Organization Address City/State/[facility] Co de Phone Number [facility] [address] documented in this encounter Visit Diagnoses Diagnosis Morbid obesity with BMI of 40.0-44.9, adult ([facility])- Primary Preop examination Preoperative examination, unspecified Morbid obesity with BMI of 40.0-44.9, adult ([facility]) documented in this encounter Care Teams Boiler Out Relationship Specialty Start Date End Date Jennifer Palumbo PA-C [address] [place] [address] PCP - General Physician Document Processor 02/02/22 documented as of this encounter
--- OUTSIDE RECORDS SUMMARY | 2024-04-18 20:23 | XMS_ITS | Encounter Summary ---
Author Organization [facility] Address [address] [place] [address] Care Team Providers Care Space Operations Name Role Phone Jennifer Palumbo PA-C Primary Care Provider [phone] Reason for Visit * Reason Comments Nutrition Counseling Encounter Details Date Type Department Care Team (Late st Contact Info) Description 04/14/2024 8:00 AM OPTICAL GLASS INSPECTOR Telemedicine [facility] [address] [facility] [address] [place], [place] [address] Sierra Palm RDN, LD [address] [place], [place] [id number] Morbid obesity with BMI of 40.0-44.9, adult [...] 122.5 kg (270 lb) 04/13/2024 8:18 PM OPTICAL GLASS INSPECTOR Height 170.2 cm (5' 7) 04/13/2024 8:18 PM OPTICAL GLASS INSPECTOR Body Mass Index 42.29 04/13/2024 8:18 PM OPTICAL GLASS INSPECTOR documented in this encounter Progress Notes * Sierra Palm RDN, LD - 04/14/2024 8:00 AM CST [facility] Medical Nutrition Therapy: Bariatric Pre-Op ASSESSMENT: [...] minutes. This visit was conducted via video CAL GLASS INSPECTOR documented in this encounter Plan of Treatment Upcoming Encounters Date Type Department Care Team (Latest Contact Info) Description 04/25/2024 1:00 PM OPTICAL GLASS INSPECTOR Hospital Encounter [facility] Room [address] [place] [address]. [place] [address] Jayme Gardiner MBBS [address] [place] [address] 04/25/2024 1:00 PM OPTICAL GLASS INSPECTOR - 04/25/2024 3:55 PM OPTICAL GLASS INSPECTOR Surgery [facility] [address] [place] [address]. [place] [address] Jayme Gardiner MBBS [address] [place] [address] XI Robotic Laparoscopic Vertical Sleeve Gastrectomy 05/01/2024 10:30 AM OPTICAL GLASS INSPECTOR Appointment [facility] [address] [place] [address] [address] Bam Majano RN 05/26/2024 8:30 AM OPTICAL GLASS INSPECTOR Telemedicine [facility] [address] [address] Sierra Palm RDN, LD 3800 [place] [address] 05/26/2024 9:00 AM OPTICAL GLASS INSPECTOR Telemedicine [facility] [address] [address] Bam Majano RN 06/09/2024 10:00 AM OPTICAL GLASS INSPECTOR Appointment Nursing at [address] [phone] Scheduled Procedures Name Priority Associated Diagnoses Date/Ti me XI Robotic Laparoscopic Vertical Sleeve Gastrectomy Morbid obesity with BMI of 40.0-44.9, adult ([facility]) 04/25/2024 1:00 PM OPTICAL GLASS INSPECTOR documented as of this encounter Visit Diagnoses Diagnosis Morbid obesity with BMI of 40.0-44.9, adult ([facility])- Primary Morbid obesity with BMI of 40.0-44.9, adult ([facility])- Primary Morbid obesity with BMI of 40.0-44.9, adult ([facility]) documented in this encounter Care Teams Space Operations Relationship Specialty Start Date End Date Jennifer Palumbo PA-C [address] [place] [address] PCP - General Physician Plastic Tubing Insulation Supervisor 02/02/22 documented as of this encounter"
--- OUTSIDE RECORDS SUMMARY | 2024-04-18 20:23 | XMS_ITS | Encounter Summary ---
Author Organization [facility] Address [address] [place] [address] Care Team Providers Care Building Construction Teacher Name Role Phone Jennifer Palumbo PA-C Primary Care Provider [phone] Encounter Details Date Type Department Care Team (Late st Contact Info) Description 02/05/2024 Notes/Orders [facility] [address] [facility] [address] [place], [place] [address] Letitia Isaac Social History Tobacco Use Types [...] (Latest Contact Info) Description 04/25/2024 1:00 PM CONCEPT ARTIST Hospital Encounter [facility] Room [address] [place], [place] [address] Jayme Gardiner MBBS [address] [place] [address] [place] [address] 04/25/2024 1:00 PM CONCEPT ARTIST - 04/25/2024 3:55 PM CONCEPT ARTIST Surgery [facility] [address] [facility] [place] [address] Jayme Gardiner MBBS 39[address] [facility] [address] [place] [address] XI Robotic Laparoscopic Vertical Sleeve Gastrectomy 05/01/2024 10:30 AM CONCEPT ARTIST Appointment [facility] [place] [address] [place] [address] [place] [address] Bam Majano, MANDEEP 05/26/2024 8:30 AM CONCEPT ARTIST Telemedicine [facility] [address] [address] [address] Palm RDN, 3800 [place] [address] 05/26/2024 9:00 AM CONCEPT ARTIST Telemedicine [facility] [address] [place] [address] Bam Majano, MANDEEP 06/09/2024 10:00 AM CONCEPT ARTIST Appointment Nursing at [address] [phone] Scheduled Procedures Name Priority Associated Diagnoses Date/Ti me XI Robotic Laparoscopic Vertical Sleeve Gastrectomy Morbid obesity with BMI of 40.0-44.9, adult ([facility]) 04/25/2024 1:00 PM CONCEPT ARTIST documented as of this encounter Visit Diagnoses Not on filedocumented in this encounter Care Teams Building Construction Teacher Relationship Specialty Start Date End Date Jennifer Palumbo PA-C [address] [place] [address] PCP - General Physician Lather Apprentice 02/02/22 documented as of this encounter
--- OUTSIDE RECORDS SUMMARY | 2024-04-18 20:23 | XMS_ITS | Encounter Summary ---
Author Organization [facility] Address [address], [place] [address] Care Team Providers Care Metal Sash Setter Name Role Phone Jennifer Palumbo PA-C Primary Care Provider [phone] Reason for Visit * Reason Comments Careplan: General Encounter Details Date Type Department Care Team (Late st Contact Info) Description 04/18/2024 Telephone [facility] [address] [facility] [address] [place], [place] [address] Julio Cesar Gao, RN Careplan: General Social [...] day before surgery, pre-op shower instructions given. ST FIRE EQUIPMENT OPERATOR documented in this encounter Plan of Treatment Upcoming Encounters Date Type Department Care Team (Latest Contact Info) Description 04/25/2024 1:00 PM FOREST FIRE EQUIPMENT OPERATOR Hospital Encounter [facility] Operating Room 6500 [facility] [address] Jayme Gardiner MBBS [address] [address] 04/25/2024 1:00 PM FOREST FIRE EQUIPMENT OPERATOR - 04/25/2024 3:55 PM FOREST FIRE EQUIPMENT OPERATOR Surgery [facility] Operating Room 6[address] [facility] [place] [address] Jayme Gardiner MBBS [address] [place] [address] [address] XI Robotic Laparoscopic Vertical Sleeve Gastrectomy 05/01/2024 10:30 AM FOREST FIRE EQUIPMENT OPERATOR Appointment [facility] [address] [place] [address] [address] [address] Bam Majano, MANDEEP 05/26/2024 8:30 AM FOREST FIRE EQUIPMENT OPERATOR Telemedicine [facility] [address] [place] [address] [address] [address] Sierra Palm RDN, LD [address] [place] [address] 05/26/2024 9:00 AM FOREST FIRE EQUIPMENT OPERATOR Telemedicine [facility] [address] [place] [address] Ave [address] [address] Bam Majaon, MANDEEP 06/09/2024 10:00 AM FOREST FIRE EQUIPMENT OPERATOR Appointment Nursing at [address] [phone] Scheduled Procedures Name Priority Associated Diagnoses Date/Ti me XI Robotic Laparoscopic Vertical Sleeve Gastrectomy Morbid obesity with BMI of 40.0-44.9, adult ([facility]) 04/25/2024 1:00 PM FOREST FIRE EQUIPMENT OPERATOR documented as of this encounter Visit Diagnoses Not on filedocumented in this encounter Care Teams Metal Sash Setter Relationship Specialty Start Date End Date Jennifer Palumbo PA-C [address] [place] [address] PCP - General Physician Claim Inspector 02/02/22 documented as of this encounter
--- OUTSIDE RECORDS SUMMARY | 2024-04-18 20:23 | XMS_ITS | Encounter Summary ---
Author Organization [facility] Address [address], [place] [address] Care Team Providers Care Patient Transition Specialist Name Role Phone Jennifer Palumbo PA-C Primary Care Provider [phone] Reason for Visit * Reason Comments Depo Provera Injection Encounter Details Date Type Department Care Team (Latest Contact Info) Description 03/19/2024 8:00 AM FISHING MANAGER Nursing Visit Nursing at [address] [phone] Surveillance of contraceptive injection (Primary [...] Instructions* SayRadha LPN - 03/19/2024 8:00 AM FISHING MANAGER Depo-Provera injection was given today, 03/19/24. Next [...] approved injection administration at the visit today ING MANAGER documented in this encounter Progress Notes * [...] at the visit today 03/19/2024, 8:01 AM ING MANAGER documented in this encounter Nursing Notes * [...] 3 Radha Eldridge LPN, 03/17/2024, 2:14 PM ING MANAGER documented in this encounter Plan of Treatment Upcoming Encounters Date Type Department Care Team (Latest Contact Info) Description 04/25/2024 1:00 PM FISHING MANAGER Hospital Encounter [facility] [address] [facility] [place] [address] Jayme Gardiner MBBS [phone] [place], [place] [address] 04/25/2024 1:00 PM FISHING MANAGER - 04/25/2024 3:55 PM FISHING MANAGER Surgery [facility] [address] [facility] [place], [place] [address] Jayme Gardiner MBBS [address] [address] XI Robotic Laparoscopic Vertical Sleeve Gastrectomy 05/01/2024 10:30 AM FISHING MANAGER Appointment [facility] [address] [place], [place] [address]e. [address] [address] Bam Majano, MANDEEP 05/26/2024 8:30 AM FISHING MANAGER Telemedicine [facility] [address] [place] [address] [address] Sierra Palm RDN, LD [address] [place] [address] 05/26/2024 9:00 AM FISHING MANAGER Telemedicine [facility] [address] [place] [address] [address] Bam Majano, MANDEEP 06/09/2024 10:00 AM FISHING MANAGER Appointment Nursing at [address] [phone] Scheduled Procedures Name Priority Associated Diagnoses Date/Ti me XI Robotic Laparoscopic Vertical Sleeve Gastrectomy Morbid obesity with BMI of 40.0-44.9, adult ([facility]) 04/25/2024 1:00 PM FISHING MANAGER documented as of this encounter Visit Diagnoses Diagnosis Morbid obesity with BMI of 40.0-44.9, adult ([facility])- Primary Surveillance of contraceptive injection- Primary Surveillance of other previously prescribed contraceptive method Morbid obesity with BMI of 40.0-44.9, adult ([facility]) documented in this encounter Administered Medications [...] Administration: Single glove Given 03/19/2024 8:08 AM FISHING MANAGER 150 mg Right Ventralgluteal Given 01/02/2024 9:51 AM CDT 150 mg Le ft Ventralgluteal Given 10/17/2023 10:51 AM CDT 150 mg R ight Ventralgluteal documented in this encounter Care Teams Patient Transition Specialist Relationship Specialty Start Date End Date Jennifer Palumbo PA-C [address] [place] [address] PCP - General Physician Utility Mechanic 02/02/22 documented as of this encounter
--- OUTSIDE RECORDS SUMMARY | 2024-04-18 20:23 | XMS_ITS | Clinical Summary ---
Author Organization [facility] Address [address] [place] [address] Care Team Providers Care Distillery Manager Name Role Phone Jennifer Palumbo PA-C Primary Care Provider [phone] Source Comments You are receiving this document as you are listed as the primary care provider,follow-up provider, or the patient has been referred to you for consultation.This is in compliance with the Medicare and[facility] Hospital[facility] EHR Incentive Program,which states Providers who transition their patient to another setting of careor provider of care or refers their patient to another provider of care shouldprovide summary care record for each transition of care or referral. [place] Allergies Active Allergy Reactions Criticality Noted Date Comments Amoxicillin Rash 06/09/2013 Penicillins 08/12/2001 Medications Medication Sig Dispensed Refills Start Date End Date Status cholecalciferol (VITAMIN D3) 1.25 MG (68877 UT) capsule Take 1 Capsule (50,000 Units) by mouth once every week. 12 Capsule 08/24/2023 Active cholecalciferol (VITAMIN D3) 1.25 MG (09241 UT) capsule Take 1 Capsule (50,000 Units) [...] Type Department Care Team Description 04/18/2024 Telephone [facility] [address] [place] [address] Julio Cesar Gao RN Careplan: General 2024 Notes/Orders [facility] [address] [place] [address] Letitia Isaac 04/14/2024 8:00 AM COTTON GINNER Telemedicine [facility] [address] [place] [address] Sierra Palm RDN, LD Morbid obesity with BMI of 40.0-44.9, adult (HRC) (Primary Dx) 04/09/2024 8:30 AM COTTON GINNER Lab Visit Laboratory at [address] [address] Preop examination 04/09/2024 8:10 AM COTTON GINNER Pre-Op Visit [facility] [address] [place] [phone] Jennifer Palumbo PA-C Preop examination (Primary Dx); Morbid obesity with body mass index (BMI) of 40.0 to 44.9 in adult (HRC) 03/19/2024 8:00 AM COTTON GINNER Nursing Visit Nursing at [facility] [address] [place] [phone] Surveillance of contraceptive injection (Primary Dx) 02/05/2024 Notes/Orders [facility] [address] [address] Letitia Isaac 02/04/2024 2:40 PM CDT Office Visit [facility] [address] [address] Jayme Gardiner MBBS Morbid obesity with BMI of 40.0-44.9, adult (C) (Primary Dx) 02/01/2024 10:00 AM CDT Telemedicine [facility] [address] [address] Meenakshi León RN Morbid obesity with body mass index (BMI) of 40.0 to 44.9 in adult (C) (Primary Dx) 02/01/2024 E-Visit [facility] [address] [address] Mychart, Generic Provider from Last 3 Months [...] Comments Blood Pressure 138/83 04/09/2024 8:03 AM COTTON GINNER Pulse 74 04/09/2024 8:03 AM COTTON GINNER Temperature 36.7 C (98.1 F) 08/22/2023 8:00 AM CDT Respiratory Rate 18 09/04/2022 8:26 AM CDT Oxygen Saturation 99% 06/12/2022 10:02 AM COTTON GINNER Inhaled Oxygen Concentration - - Weight 122.5 kg (270 lb) 04/13/2024 8:18 PM COTTON GINNER Height 170.2 cm (5' 7) 04/13/2024 8:18 PM COTTON GINNER Body Mass Index 42.29 04/13/2024 8:18 PM COTTON GINNER Plan of Treatment Upcoming Encounters Date Type Department Care Team (Latest Contact Info) Description 04/25/2024 1:00 PM COTTON GINNER Hospital Encounter [facility] [address] [place] [address]. [place] [address] Jayme Gardiner MBBS [phone] [place] [address] 04/25/2024 1:00 PM COTTON GINNER - 04/25/2024 3:55 PM COTTON GINNER Surgery [facility] [address] [place] [address]. [place] [address] Jayme Gardiner MBBS [phone] [place] [address] XI Robotic Laparoscopic Vertical Sleeve Gastrectomy 05/01/2024 10:30 AM COTTON GINNER Appointment [facility] [address] [facility] [address] [place] [address] Bam Majano, RN 05/26/2024 8:30 AM COTTON GINNER Telemedicine [facility] [place] [address] [facility] [address] [place], [place] [address] Sierra Palm RDN, LD [address] [place], [place] [address] 05/26/2024 9:00 AM COTTON GINNER Telemedicine [facility] [place] [address] [facility] [address] [place] [address] Bam Majano, MANDEEP 06/09/2024 10:00 AM COTTON GINNER Appointment Nursing at [address] [address] Scheduled Procedures Name Priority Associated Diagnoses Date/Ti me XI Robotic Laparoscopic Vertical Sleeve Gastrectomy Morbid obesity with BMI of 40.0-44.9, adult (HRC) 04/25/2024 1:00 PM COTTON GINNER Health Maintenance Due Date Last Done Comments [...] Comments TEST (URINE) Routine 04/09/2024 8:52 AM COTTON GINNER Preop examination COMPLETE BLOOD COUNT-W/DIFF Routine 04/09/2024 8:35 AM COTTON GINNER Preop examination BASIC METABOLIC PANEL Routine 04/09/2024 8:35 AM COTTON GINNER Preop examination CBC AND DIFFERENTIAL PANEL Routine 04/09/2024 8:35 AM COTTON GINNER Preop examination HGB A1C Routine 08/20/2023 7:41 AM CDT Screening for diabetes mellitus HIV 1/2 AG/AB 4TH GEN Routine 05/22/2022 10:11 AM COTTON GINNER Screening for HIV (human immunodeficiency virus) HEPATITIS C ANTIBODY, WITH REFLEX Routine 05/22/2022 10:11 AM COTTON GINNER Encounter for HCV screening test for low risk patient PAP TEST Routine 05/22/2022 10:07 AM COTTON GINNER Screening for malignant neoplasm of cervix from Last 3 Months or Most Recently Relevant to Health Maintenance Results * Test (Urine) (04/09/2024 8:52 AM COTTON GINNER) HCG, Urine Negative Negative 04/09/2024 8:56 AM COTTON GINNER [facility] Urine Non-blood Collection / Unknown 04/09/2024 8:52 AM COTTON GINNER 04/09/2024 8:52 AM COTTON GINNER Jennifer Palumbo PA-C LAB_1 [facility] [address] [place] [address], [facility] * Complete Blood Count-W/Diff (04/09/2024 8:35 AM COTTON GINNER) WBC 7.4 3.5 - 10.5 x10(9)/L 04/09/2024 8:57 AM COTTON GINNER [facility] RBC 4.88 3.90 - 5.03 x10(12)/L 04/09/2024 8:57 AM [facility] Hemoglobin 14.2 12.0 - 15.5 g/dL 04/09/2024 8:57 AM [facility] HCT 42.0 34.9 - 44.5 % 04/09/2024 8:57 AM [facility] MCV 86.1 80.0 - 100.0 fL 04/09/2024 8:57 AM [facility] MCH 29.1 27.6 - 33.3 pg 04/09/2024 8:57 AM [facility] MCHC 33.8 31.5 - 35.2 g/dL 04/09/2024 8:57 AM [facility] RDW 12.3 11.9 - 15.5 % 04/09/2024 8:57 AM [facility] Platelets 266 150 - 450 x10(9)/L 04/09/2024 8:57 AM COTTON GINNER [facility] Neutrophil Absolute 4.2 1.7 - 7.0 10(9)/L 04/09/2024 8:57 AM COTTON GINNER [facility] Lymphocyte Absolute 2.4 1.0 - 4.8 10(9)/L 04/09/2024 8:57 AM COT[facility] GINNER [facility] Monocyte Absolute 0.6 0.2 - 0.9 10(9)/L 04/09/2024 8:57 AM COTTON GINNER [facility] Eosinophil Absolute 0.1 0.0 - 0.5 10(9)/L 04/09/2024 8:57 AM COTTON GINNER [facility] Basophil Absolute 0.0 0.0 - 0.3 10(9)/L 04/09/2024 8:57 AM [facility] Immature Granulocyte % 0.1 0.0 - 0.5 % 04/09/2024 8:57 AM [facility] Blood Venipuncture / Unknown 04/09/2024 8:35 AM COTTON GINNER 04/09/2024 8:35 AM COTTON GINNER Jennifer Palumbo PA-C LAB_1 [facility] [address] [place] [address], [facility] * (ABNORMAL) BMP (04/09/2024 8:35 AM COTTON GINNER) Sodium 138 136 - 145 mmol/L 04/09/2024 11:42 AM [facility] Potassium 4.0 3.5 - 5.1 mmol/L 04/09/2024 11:42 AM [facility] Chloride 108 98 - 109 mmol/L 04/09/2024 11:42 AM [facility] CO2 23 20 - 29 mmol/L 04/09/2024 11:42 AM [facility] Anion Gap 7 6 - 16 mmol/L 04/09/2024 11:42 AM [facility] Calcium 9.7 8.4 - 10.4 mg/dL 04/09/2024 11:42 AM [facility] BUN 11 7 - 26 mg/dL 04/09/2024 11:42 AM [facility] Creatinine 0.73 0.55 - 1.02 mg/dL 04/09/2024 11:42 AM [facility] Glucose 104(H) 70 - 100 mg/dL 04/09/2024 11:42 AM [facility] Comment:The given reference range is for the fasting state. Non-fasting reference range for glucose is 70 - 180 mg/dL. GFR, Estimated >60 >60 mL/min/1. 73m2 04/09/2024 11:42 AM [facility] Hours Fasting 0.1 8 - 12 Hours 04/09/2024 11:42 AM [facility] Blood Venipuncture / Unknown 04/09/2024 8:35 AM COTTON GINNER 04/09/2024 8:35 AM COTTON GINNER Jennifer Palumbo PA-C LAB_1 Performing Organization Address [facility] Co de Phone Number [facility] [address] * Hgb A1c (08/20/2023 7:41 AM CDT) Hemoglobin A1C 4.8 <=5.6 % 08/20/2023 11:57 AM CDT [facility] Estimated Average Glucose (Calc) 91 < 117 mg/dL 08/20/2023 11:57 AM CDT [facility] Comment:Estimated average gl ucose (eAG) converts A1c into glucose units (mg/dL) and estimates average glucose over the past approximately 3 months. The eAG reference interval (<117 mg/dL) corresponds to an A1c of <5.7%. Blood Venipuncture / Unknown 08/20/2023 7:41 AM CDT 08/20/2023 7:41 AM CDT Shruthi Araiza PA-C LAB_1 Performing Organization Address [facility] de Phone Number [facility] [address] * HIV 1/2 Ag/Ab 4th Generation (05/22/2022 10:11 AM COTTON GINNER) HIV 1/2 Antigen/Anti body (4th generation) Negative (Non Reactive) Negative (Non Reactive) 05/22/2022 3:36 PM COTTON GINNER [facility] Comment:HIV-1 p24 Antigen an d HIV-1/HIV-2 Antibody not detected Blood Venipuncture / Unknown 05/22/2022 10:11 AM COTTON GINNER 05/22/2022 10:11 AM COTTON GINNER Jennifer Palumbo PA-C LAB_1 Performing Organization Address City/[facility] Co de Phone Number [facility] [address] [address], [facility] [phone] * Hepatitis C Antibody, with Reflex (05/22/2022 10:11 AM COTTON GINNER) Hepatitis C Antibody Negative (Non Reactive) Negative (Non Reactive) 05/22/2022 3:31 PM COTTON GINNER [facility] Comment:Antibodies to HCV no t detected. Does not exclude the possiblity of exposure to HCV. Blood Venipuncture / Unknown 05/22/2022 10:11 AM COTTON GINNER 05/22/2022 10:11 AM COTTON GINNER Jennifer Palumbo PA-C LAB_1 [facility] [address] [address], [facility] [phone] * PAP Test (05/22/2022 10:07 AM COTTON GINNER) Case Report Pap Case: [id number] Authorizing Provider: Jennifer Palumbo PA-C Collected: 05/22/2022 1007 Ordering Location: [facility] Received: 05/22/2022 1041 Practice First Screen: Ashleigh Anderson Specimen: Pap Test, Routine, Cervix/Endocervix 06/02/2022 9:50 AM [facility] Pap Specimen Adequacy Satisfactory for evaluation, endocervical/deng sformation zone component absent. 06/02/2022 9:50 AM [facility] Pap Interpretation (NILM) Negative for intraepithelial lesion or malignancy. 06/02/2022 9:50 AM [facility] Pap Disclaimer The Pap test is a screening test designed to aid in the detection of cervical cancer and its precursor lesions. It is not a diagnostic procedure and should not be used as the sole means of detecting cervical cancer. Both false-positive and false-negative results may occur. 06/02/2022 9:50 AM [facility] Gross Description The specimen is received in SurePath fixative and properly labeled. 1 Pap-stained SurePath slide is prepared. 06/02/2022 9:50 AM COT[facility] GINNER [facility] Embedded Images 9:50 AM [facility] Other Specimen Type ENTIRE ENDOCERVIX / Unknown 05/22/2022 10:07 AM COTTON GINNER 05/22/2022 10:41 AM COTTON GINNER Comment:LMP: No LMP recorded . Jennifer Palumbo PA-C LAB PATHOLOGY [address] [address], [facility] [phone] from Last 3 Months or Most Recently Relevant to Health Maintenance Care Teams Distillery Manager Relationship Specialty Start Date End Date Jennifer Palumbo PA-C [address] [place] [address] PCP - General Physician Sales Support Assistant 02/02/22
--- OUTSIDE RECORDS SUMMARY | 2024-04-18 20:23 | XMS_ITS | Encounter Summary ---
Author Organization [facility] Address [address], [place] [address] Care Team Providers Care Outreach Nurse Name Role Phone Jennifer Palumbo PA-C Primary Care Provider [phone] Reason for Visit * Reason Comments PRE-OP EXAM Encounter Details Date Type Department Care Team (Late st Contact Info) Description 04/09/2024 8:10 AM BROOMCORN THRESHER Pre-Op Visit [facility] [address] [place] [address] Jennifer Palumbo PA-C [address] [place] [address] Preop examination (Primary Dx); Morbid [...] Comments Blood Pressure 138/83 04/09/2024 8:03 AM BROOMCORN THRESHER Pulse 74 04/09/2024 8:03 AM BROOMCORN THRESHER Temperature - - Respiratory Rate - - Oxygen Saturation - - Inhaled Oxygen Concentration - - Weight 126.6 kg (279 lb) 04/09/2024 8:03 AM BROOMCORN THRESHER Height 171 cm (5' 7.32) 04/09/2024 8:03 AM BROOMCORN THRESHER Body Mass Index 43.28 04/09/2024 8:03 AM BROOMCORN THRESHER documented in this encounter Patient Instructions * Patient Instructions* Jennifer Palumbo PA-C - 04/09/2024 8:10 AM BROOMCORN THRESHER Follow your individualized medication recommendations as described above. In addition, please stop all vmel-ivw-yyfuoin medications including aspirin, ibuprofen (Advil, Motrin), naproxen [...] have adverse reactions to anesthesia and medications. Mcbee your teeth on the morning of your [...] before your surgery, call the Pre-Op nurse. MCORN THRESHER documented in this encounter Progress Notes * Jennifer Palumbo PA-C - 04/09/2024 8:10 AM CST Pre-Operative Assessment 04/09/2024 ET Darwin PreOp Assessment Details Procedure XI Robotic Laparoscopic Vertical Sleeve Gastrectomy Surgeon Jayme Gardiner MBBS and Nieves Pineda PA-C Location [facility] Procedure Date 04/25/2024 Grant Graves is a 34 y.o. old female here for pre-operative evaluation for procedure noted above. Concerns: ER visit recently for 200 bmps on watch, just sitting and relaxing. Russell off and sweaty. About 2 weeks ago, [...] (BMI) of 40.0 to 44.9 in adult ([facility]) 01/10/2024 Obesity, Class II, BMI 35-39.9 ([facility]) 10/23/2023 Abnormal Papanicolaou smear of cervix [...] Confirmed by - EMERGENCY ROOM, PHYSICIAN ([id number]), technical writer and editor SAMAN CRUZ ([id number]) on 06/21/2021 6:44:49 [...] (BMI) of 40.0 to 44.9 in adult ([facility]) E66.01 Z68.41 Medication changes are listed [...] described above. In addition, please stop all zdjw-vyp-xlvrtcv medications including aspirin, ibuprofen (Advil, Motrin), naproxen [...] have adverse reactions to anesthesia and medications. Mcbee your teeth on the morning of your [...] by: Jennifer Palumbo PA-C 04/09/2024, 10:56 PM MCORN THRESHER documented in this encounter Plan of Treatment Upcoming Encounters Date Type Department Care Team (Latest Contact Info) Description 04/25/2024 1:00 PM BROOMCORN THRESHER Hospital Encounter [facility] [address] [place] [address]. [place] [address] Jayme Gardiner MBBS [phone] [place], [place] [address] 04/25/2024 1:00 PM BROOMCORN THRESHER - 04/25/2024 3:55 PM BROOMCORN THRESHER Surgery [facility] [address] [facility] [place] [address] Jayme Gardiner MBBS [phone] [place] [address] XI Robotic Laparoscopic Vertical Sleeve Gastrectomy 05/01/2024 10:30 AM BROOMCORN THRESHER Appointment [facility] [address] [address] Bam Majano RN 05/26/2024 8:30 AM BROOMCORN THRESHER Telemedicine [facility] [address] [address] Sierra Palm RDN, LD [address] [place], [place] [address] 05/26/2024 9:00 AM BROOMCORN THRESHER Telemedicine [facility] [address] [address] Bam Majano RN 06/09/2024 10:00 AM BROOMCORN THRESHER Appointment Nursing at [address] [phone] Scheduled Procedures Name Priority Associated Diagnoses Date/Ti me XI Robotic Laparoscopic Vertical Sleeve Gastrectomy Morbid obesity with BMI of 40.0-44.9, adult ([facility]C) 04/25/2024 1:00 PM BROOMCORN THRESHER documented as of this encounter Results * Test (Urine) (04/09/2024 8:52 AM BROOMCORN THRESHER) HCG, Urine Negative Negative 04/09/2024 8:56 AM [facility] Urine Non-blood Collection / Unknown 04/09/2024 8:52 AM BROOMCORN THRESHER 04/09/2024 8:52 AM BROOMCORN THRESHER Jennifer Palumbo PA-C LAB_1 [facility] [address] [place] [address], [facility] * (ABNORMAL) BMP (04/09/2024 8:35 AM BROOMCORN THRESHER) Sodium 138 136 - 145 mmol/L 04/09/2024 11:42 AM [facility] Potassium 4.0 3.5 - 5.1 mmol/L 04/09/2024 11:42 AM [facility] Chloride 108 98 - 109 mmol/L 04/09/2024 11:42 AM [facility] CO2 23 20 - 29 mmol/L 04/09/2024 11:42 AM [facility] Anion Gap 7 6 - 16 mmol/L 04/09/2024 11:42 AM [facility] Calcium 9.7 8.4 - 10.4 mg/dL 04/09/2024 11:42 AM [facility] BUN 11 7 - 26 mg/dL 04/09/2024 11:42 AM [facility] Creatinine 0.73 0.55 - 1.02 mg/dL 04/09/2024 11:42 AM [facility] Glucose 104(H) 70 - 100 mg/dL 04/09/2024 11:42 AM [facility] Comment:The given reference range is for the fasting state. Non-fasting reference range for glucose is 70 - 180 mg/dL. GFR, Estimated >60 >60 mL/min/1. 73m2 04/09/2024 11:42 AM [facility] Hours Fasting 0.1 8 - 12 Hours 04/09/2024 11:42 AM [facility] Blood Venipuncture / Unknown 04/09/2024 8:35 AM BROOMCORN THRESHER 04/09/2024 8:35 AM BROOMCORN THRESHER Jennifer Palumbo PA-C LAB_1 [facility] [address] documented in this encounter Visit Diagnoses Diagnosis Morbid obesity with BMI of 40.0-44.9, adult (HRC)- Primary Preop examination- Primary Preoperative examination, unspecified Morbid obesity with body mass index (BMI) of 40.0 to 44.9 in adult (HRC) Morbid obesity with BMI of 40.0-44.9, adult (HRC) documented in this encounter Care Teams Outreach Nurse Relationship Specialty Start Date End Date Jennifer Palumbo PA-C [address] [place] [address] PCP - General Physician Debone Supervisor 02/02/22 documented as of this encounter
--- OUTSIDE RECORDS SUMMARY | 2024-04-18 20:23 | XMS_ITS | Encounter Summary ---
Author Organization [facility] Address [address] [place] [address] Care Team Providers Care Terrapin Fisher Name Role Phone Jennifer Palumbo PA-C Primary Care Provider [phone] Encounter Details Date Type Department Care Team (Late st Contact Info) Description 2024 Notes/Orders [facility] [address] [facility] [address] [place], [place] [address] Letitia Isaac Social History Tobacco Use Types [...] (Latest Contact Info) Description 04/25/2024 1:00 PM TIE PRESSER Hospital Encounter [facility] Operating Room [address] [place], [place] [address] Jayme Gardiner MBBS [address] [facility] [address] [place] [address] 04/25/2024 1:00 PM TIE PRESSER - 04/25/2024 3:55 PM TIE PRESSER Surgery [facility] Operating Room [address] [facility] [address] Jayme Gardiner MBBS [address] [facility] [address] [place] [address] XI Robotic Laparoscopic Vertical Sleeve Gastrectomy 05/01/2024 10:30 AM TIE PRESSER Appointment [facility] [place] [address] [place] [address] [place] [address] Bam Majano, MANDEEP 05/26/2024 8:30 AM TIE PRESSER Telemedicine [facility] [address] [address] Sierra Palm RDN, [address] [place] [address] 05/26/2024 9:00 AM TIE PRESSER Telemedicine [facility] [address] [address] Bam Majano, MANDEEP 06/09/2024 10:00 AM TIE PRESSER Appointment Nursing at [address] [address] Scheduled Procedures Name Priority Associated Diagnoses Date/Ti me XI Robotic Laparoscopic Vertical Sleeve Gastrectomy Morbid obesity with BMI of 40.0-44.9, adult (HRC) 04/25/2024 1:00 PM TIE PRESSER documented as of this encounter Visit Diagnoses Not on filedocumented in this encounter Care Teams Terrapin Fisher Relationship Specialty Start Date End Date Jennifer Palumbo PA-C [address] [place] [address] PCP - General Physician Squaring Machine Operator 9/22/22 documented as of this encounter
--- OUTSIDE RECORDS SUMMARY | 2024-04-18 20:24 | XMS_ITS | Encounter Summary ---
Author Organization [facility] Address [address] [place] [address] Care Team Providers Care 911 Telecommunicator Name Role Phone Jennifer Palumbo PA-C Primary Care Provider [phone] Encounter Details Date Type Department Care Team (Late st Contact Info) Description 02/01/2024 E-Visit [facility] [address] [facility] [address] [place], [place] [address] Elis[place] [address] Social History Tobacco Use Types Packs/Day Years [...] (Latest Contact Info) Description 04/25/2024 1:00 PM RESIDENCE LIFE COORDINATOR Hospital Encounter [facility] [address] [place], [place] [address] Jayme Gardiner MBBS [address] [address] 04/25/2024 1:00 PM RESIDENCE LIFE COORDINATOR - 04/25/2024 3:55 PM RESIDENCE LIFE COORDINATOR Surgery [facility] [address] [facility] [place] [address] Jayme Gardiner MBBS [address] [address] XI Robotic Laparoscopic Vertical Sleeve Gastrectomy 05/01/2024 10:30 AM RESIDENCE LIFE COORDINATOR Appointment [facility] [place] [address] [place] [address] Bam Majano, MANDEEP 05/26/2024 8:30 AM RESIDENCE LIFE COORDINATOR Telemedicine [facility] [address] [address] Sierra Palm RDN, LD [address] [place] [address] 05/26/2024 9:00 AM RESIDENCE LIFE COORDINATOR Telemedicine [facility] [address] [address] Bam Majano, MANDEEP 06/09/2024 10:00 AM RESIDENCE LIFE COORDINATOR Appointment Nursing at [address] [phone] Scheduled Procedures Name Priority Associated Diagnoses Date/Ti me XI Robotic Laparoscopic Vertical Sleeve Gastrectomy Morbid obesity with BMI of 40.0-44.9, adult ([facility]) 04/25/2024 1:00 PM RESIDENCE LIFE COORDINATOR documented as of this encounter Visit Diagnoses Not on filedocumented in this encounter Care Teams 911 Telecommunicator Relationship Specialty Start Date End Date Jennifer Palumbo PA-C [address] [place] [address] PCP - General Physician Sales Associate Fishing 02/02/22 documented as of this encounter
--- OUTSIDE RECORDS SUMMARY | 2024-04-18 20:24 | XMS_ITS | Encounter Summary ---
Author Organization [employer] [facility] TechnologiesGall[facility] CenterAridis Pharmaceuticals Address [address] [place] [address] Care Team Providers Care Textbook Associate Name Role Phone Jennifer Palumbo PA-C Primary Care Provider [phone] Reason for Referral * Procedure/Equipment (Routine) - Incomplete Specialty Diagnoses / Procedures Referred By Marie webb Referred To Contact Diagnoses Morbid obesity with BMI of 40.0-44.9, adult (HRC) Procedures Case Request OR - General/Vascular Surg: XI Robotic Laparoscopic Vertical Sleeve Gastrectomy Jayme Gardiner MBBS [address] [facility] [address] [place] [address] Referral ID Status Reason Start Date Expiration Date V isits Requested Visits Authorized [id number] Incomplete 02/04/2024 05/05/2025 1 1 Reason for Visit * Reason Comments CONSULT Encounter Details Date Type Department Care Team (Late st Contact Info) Description 02/04/2024 2:40 PM CDT Office Visit [facility] [address] [facility] [address] [place], [place] [address] Jayme Gardiner MBBS [address] [facility] [address] [place] [address] Morbid obesity with BMI of 40.0-44.9, adult [...] (to equal 20 mg total) in the gas line repairer on the day before surgery. Continue to [...] Gardiner MBBS - 02/04/2024 2:[address] [facility] Bariatric Surgery Consult Date: 02/04/2024 Ely Campbell [...] in attempts to lose weight without any mcfp success. Methods of weight loss had included but are not limited to: medical weight management plan through her PCP, dietary modification, exercise regimen, and Wegovy Estimated body mass index is 43.05 kg/m?? as calculated from the following: Height as of this encounter: 5' 7.5 (171.5 cm). Weight as of this encounter: 279 lb (800344 g). Patient Active Problem List Diagnosis Abnormal [...] EXTRACTION Medications/Allergies: cholecalciferol (VITAMIN D3) 1.25 MG (19602 UT) capsule, Take 1 Capsule (50,000 Units) by mouth once every week., Disp: 12 Capsule, Rfl: 0 cholecalciferol (VITAMIN D3) 1.25 MG (20806 UT) capsule, Take 1 Capsule (50,000 Units) by mouth once every week., Disp: 12 Capsule, Rfl: 0 medroxyPROGESTERone (DEPO-PROVERA) injection 150 mg, 150 mg, Intramuscular, [id number], Jennifer Palumbo PA-C, 150 mg at 01/02/24 0951 Amoxicillin and Penicillins Physical Exam: Vitals: Ht 5' 7.5 (171.5 cm) Wt 279 lb (838662 g) BMI 43.05 kg/m?? Weight at start [...] Weight as of this encounter: 279 lb (930595 g). Ely Campbell meets criteria for bariatric [...] diets that do not lend themselves to mcfp satiety. A patient must achieve the result [...] weight gain, nutritional deficiencies, DVT, PE, CVA, [place] Robotic approach contingent upon robotic platform availability. [...] (Latest Contact Info) Description 04/25/2024 1:00 PM OUTREACH TEAM MEMBER Hospital Encounter [facility] Operating Room [address] [facility] [place] [address] Jayme Gardiner MBBS [address] [facility] [address] [place] [address] 04/25/2024 1:00 PM OUTREACH TEAM MEMBER - 04/25/2024 3:55 PM OUTREACH TEAM MEMBER Surgery [facility] Operating Room [address] [facility] [place] [address] Jayme Gardiner MBBS [address] [facility] [address] [place] [address] XI Robotic Laparoscopic Vertical Sleeve Gastrectomy 05/01/2024 10:30 AM OUTREACH TEAM MEMBER Appointment [facility] [address] [place] [address] Bam Majano, RN 05/26/2024 8:30 AM OUTREACH TEAM MEMBER Telemedicine [facility] [address] [facility] [address] [place] [address] Sierra Palm RDN, [address] [place] [address] 05/26/2024 9:00 AM OUTREACH TEAM MEMBER Telemedicine [facility] [place] [address] [facility] [address] [place] [address] Bam Majano, MANDEEP 06/09/2024 10:00 AM OUTREACH TEAM MEMBER Appointment Nursing at [address] [address] Scheduled Procedures Name Priority Associated Diagnoses Date/Ti me XI Robotic Laparoscopic Vertical Sleeve Gastrectomy Morbid obesity with BMI of 40.0-44.9, adult (HRC) 04/25/2024 1:00 PM OUTREACH TEAM MEMBER documented as of this encounter Visit Diagnoses Diagnosis Morbid obesity with BMI of 40.0-44.9, adult (HRC)- Primary Morbid obesity with BMI of 40.0-44.9, adult (HRC)- Primary Morbid obesity with BMI of 40.0-44.9, adult (HRC) documented in this encounter Care Teams Textbook Associate Relationship Specialty Start Date End Date Jennifer Palumbo PA-C [address] [place] [address] PCP - General Physician Botany Technician 02/02/22 documented as of this encounter
--- OUTSIDE RECORDS SUMMARY | 2024-04-18 20:24 | XMS_ITS | Encounter Summary ---
Author Organization [facility] Center[facility] Address [address] [place] [address] Care Team Providers Care Wholesale And Retail Merchant Name Role Phone Jennifer Palumbo PA-C Primary Care Provider [phone] Encounter Details Date Type Department Care Team (Late st Contact Info) Description 01/10/2024 Notes/Orders [facility] [address] [facility] [address] [place], [place] [address] Letitia sIaac Social History Tobacco Use Types Packs/Day Years [...] (Latest Contact Info) Description 04/25/2024 1:00 PM RAILROAD INSPECTOR Hospital Encounter [facility] Operating Room [address] [place], [place] [address] Jayme Gardiner MBBS [address] [facility] [address] [place] [address] 04/25/2024 1:00 PM RAILROAD INSPECTOR - 04/25/2024 3:55 PM RAILROAD INSPECTOR Surgery Scient[facility] Operating Room [address] [place] [address] Jayme Gardiner MBBS [address] [facility] [address] [place] [address] XI Robotic Laparoscopic Vertical Sleeve Gastrectomy 05/01/2024 10:30 AM RAILROAD INSPECTOR Appointment [facility] [place] [address] [place] [address] [place] [address] Bam Majano, MANDEEP 05/26/2024 8:30 AM RAILROAD INSPECTOR Telemedicine [facility] [address] [address] Sierra Palm RDN, [address] [place] [address] 05/26/2024 9:00 AM RAILROAD INSPECTOR Telemedicine [facility] [address] [place] [address] Bam Majano, MANDEEP 06/09/2024 10:00 AM RAILROAD INSPECTOR Appointment Nursing at [address] [address] Scheduled Procedures Name Priority Associated Diagnoses Date/Ti me XI Robotic Laparoscopic Vertical Sleeve Gastrectomy Morbid obesity with BMI of 40.0-44.9, adult (HRC) 04/25/2024 1:00 PM RAILROAD INSPECTOR documented as of this encounter Visit Diagnoses Not on filedocumented in this encounter Care Teams Wholesale And Retail Merchant Relationship Specialty Start Date End Date Jennifer Palumbo PA-C [address] [place] [address] PCP - General Physician Grievance Coordinator 02/02/22 documented as of this encounter
--- OUTSIDE RECORDS SUMMARY | 2024-04-18 20:24 | XMS_ITS | Encounter Summary ---
Author Organization [facility] Address [address] [place] [address] Care Team Providers Care Medical Scientific Liaison Name Role Phone Jennifer Palumbo PA-C Primary Care Provider [phone] Encounter Details Date Type Department Care Team (Late st Contact Info) Description 01/11/2024 10:20 AM CDT Lab Visit [facility] [address] [place] [address] Vitamin D deficiency (HRC) Social [...] (Latest Contact Info) Description 04/25/2024 1:00 PM RESPIRATORY THERAPY AIDE Hospital Encounter [facility] Operating Room [address] [facility] [place], [place] [address] Jayme Gardiner MBBS [address] [facility] [address] [place], [place] [address] 04/25/2024 1:00 PM RESPIRATORY THERAPY AIDE - 04/25/2024 3:55 PM RESPIRATORY THERAPY AIDE Surgery [facility] Operating Room [address] [facility] [place] [address] Jayme Gardiner MBBS [address] [facility] [address] [place], [place] [address] XI Robotic Laparoscopic Vertical Sleeve Gastrectomy 05/01/2024 10:30 AM RESPIRATORY THERAPY AIDE Appointment [facility] [place] [address] [place] [address] [place] [address] Bam Majano, MANDEEP 05/26/2024 8:30 AM RESPIRATORY THERAPY AIDE Telemedicine [facility] [address] [address] Sierra Palm RDN, [address] [place] [address] 05/26/2024 9:00 AM RESPIRATORY THERAPY AIDE Telemedicine [facility] [address] [address] Bam Majano, MANDEEP 06/09/2024 10:00 AM RESPIRATORY THERAPY AIDE Appointment Nursing at [address] [address] Scheduled Procedures Name Priority Associated Diagnoses Date/Ti me XI Robotic Laparoscopic Vertical Sleeve Gastrectomy Morbid obesity with BMI of 40.0-44.9, adult (HRC) 04/25/2024 1:00 PM RESPIRATORY THERAPY AIDE documented as of this encounter Procedures Procedure Name Priority Date/Time Associated Diagnosis Comments VITAMIN D 25-HYDROXY, TOTAL Routine 01/11/2024 10:16 AM CDT Vitamin D deficiency (HRC) documented in this encounter Results * Vitamin D 25-Hydroxy, Total (01/11/2024 10:16 AM CDT) Vitamin D, 25-OH, Total 33 30 - 80 ng/mL 01/11/2024 3:47 PM CDT [facility] Blood Venipuncture / Unknown 01/11/2024 10:16 AM CDT 01/11/2024 10:16 AM CDT Shruthi Araiza PA-C LAB_1 Performing Organization Address City/State/[facility] Co de Phone Number [facility] [address] documented in this encounter Visit Diagnoses Diagnosis Vitamin D deficiency (HRC) Unspecified vitamin D deficiency Morbid obesity with BMI of 40.0-44.9, adult (HRC) documented in this encounter Care Teams Medical Scientific Liaison Relationship Specialty Start Date End Date Jennifer Palumbo PA-C [address] [place] [address] PCP - General Physician Telephone Sex Worker 02/02/22 documented as of this encounter
--- OUTSIDE RECORDS SUMMARY | 2024-04-18 20:24 | XMS_ITS | Encounter Summary ---
Author Organization [facility] Address [address] [place] [address] Care Team Providers Care Rn Triage Name Role Phone Jennifer Palumbo PA-C Primary Care Provider [phone] Encounter Details Date Type Department Care Team (Late st Contact Info) Description 01/11/2024 Notes/Orders [facility] [address] [facility] [address] [place], [place] [address] Letitia Isaac Social History Tobacco Use Types [...] (Latest Contact Info) Description 04/25/2024 1:00 PM COMMISSIONING ENGINEER Hospital Encounter [facility] Operating Room [address] [place], [place] [address] Jayme Gardiner MBBS [address] [facility] [address] [place] [address] 04/25/2024 1:00 PM COMMISSIONING ENGINEER - 04/25/2024 3:55 PM COMMISSIONING ENGINEER Surgery [facility]astafarian Operating Room [address] [facility] [place] [address] Jayme Gardiner MBBS [address] [facility] [address] [place] [address] XI Robotic Laparoscopic Vertical Sleeve Gastrectomy 05/01/2024 10:30 AM COMMISSIONING ENGINEER Appointment [facility] [place] [address] [place] [address] [place] [address] Bam Majano, MANDEEP 05/26/2024 8:30 AM COMMISSIONING ENGINEER Telemedicine [facility] [address] [address] Sierra Palm RDN, [address] [place] [address] 05/26/2024 9:00 AM COMMISSIONING ENGINEER Telemedicine [facility] [address] [place] [address] Bam Majano, MANDEEP 06/09/2024 10:00 AM COMMISSIONING ENGINEER Appointment Nursing at [address] [address] Scheduled Procedures Name Priority Associated Diagnoses Date/Ti me XI Robotic Laparoscopic Vertical Sleeve Gastrectomy Morbid obesity with BMI of 40.0-44.9, adult (HRC) 04/25/2024 1:00 PM COMMISSIONING ENGINEER documented as of this encounter Visit Diagnoses Not on filedocumented in this encounter Care Teams Rn Triage Relationship Specialty Start Date End Date Jennifer Palumbo PA-C [address] [place] [address] PCP - General Physician Archery Equipment Repairer 02/02/22 documented as of this encounter
--- OUTSIDE RECORDS SUMMARY | 2024-04-18 20:24 | XMS_ITS | Encounter Summary ---
Author Organization [facility] Address [address] [place] [address] Care Team Providers Care Rn Hemodialysis Name Role Phone Jennifer Palumbo PA-C Primary Care Provider [phone] Encounter Details Date Type Department Care Team (Late st Contact Info) Description 01/11/2024 E-Visit [facility] [address] [facility] [address] [place], [place] [address] Letitia Isaac Social History Tobacco Use Types [...] (Latest Contact Info) Description 04/25/2024 1:00 PM BUSINESS COMMUNICATIONS INSTRUCTOR Hospital Encounter Yazdanism Operating Room [address] [place], [place] [address] Jayme Gardiner MBBS [address] [facility] [address] [place] [address] 04/25/2024 1:00 PM BUSINESS COMMUNICATIONS INSTRUCTOR - 04/25/2024 3:55 PM BUSINESS COMMUNICATIONS INSTRUCTOR Surgery Yazdanism Operating Room [address] [facility] [place] [address] Jayme Gardiner MBBS [address] [facility] [address] [place] [address] XI Robotic Laparoscopic Vertical Sleeve Gastrectomy 05/01/2024 10:30 AM BUSINESS COMMUNICATIONS INSTRUCTOR Appointment [facility] [place] [address] [place] [address] [place] [address] Bam Majano, MANDEEP 05/26/2024 8:30 AM BUSINESS COMMUNICATIONS INSTRUCTOR Telemedicine [facility] [address] [address] Sierra Palm RDN, [address] [place] [address] 05/26/2024 9:00 AM BUSINESS COMMUNICATIONS INSTRUCTOR Telemedicine [facility] [address] [place] [address] Bam Majano, MANDEEP 06/09/2024 10:00 AM BUSINESS COMMUNICATIONS INSTRUCTOR Appointment Nursing at [address] [address] Scheduled Procedures Name Priority Associated Diagnoses Date/Ti me XI Robotic Laparoscopic Vertical Sleeve Gastrectomy Morbid obesity with BMI of 40.0-44.9, adult (HRC) 04/25/2024 1:00 PM BUSINESS COMMUNICATIONS INSTRUCTOR documented as of this encounter Visit Diagnoses Not on filedocumented in this encounter Care Teams Rn Hemodialysis Relationship Specialty Start Date End Date Jennifer Palumbo PA-C [address] [place] [address] PCP - General Physician Cutting And Printing Machine Operator 02/02/22 documented as of this encounter
--- OUTSIDE RECORDS SUMMARY | 2024-04-18 20:24 | XMS_ITS | Encounter Summary ---
Author Organization [employer] [facility] Address [address], [place] [address] Care Team Providers Care Engineering And Development Director Name Role Phone Jennifer Palumbo PA-C Primary Care Provider [phone] Reason for Visit * Reason Comments Follow-up Pre op Encounter Details Date Type Department Care Team (Late st Contact Info) Description 01/10/2024 8:00 AM CDT Office Visit [facility] [address] [facility] [address] [place], [place] [address] Shruthi Araiza PA-C [address] [place], [place] [address] Morbid obesity with body mass index (BMI) [...] of cervix Obesity, Class II, BMI 35-39.9 ([facility]) Morbid obesity with body mass index (BMI) of 40.0 to 44.9 in adult ([facility]) SURGICAL HISTORY: Past Surgical History: Procedure Laterality Date BLEPHAROPLASTY LOWER EYELID; MEDICATIONS: Outpatient Medications Prior to Visit Medication Sig Dispense Refill cholecalciferol (VITAMIN D3) 1.25 MG (82559 UT) capsule Take 1 Capsule (50,000 Units) by mouth onceevery week. 12 Capsule 0 cholecalciferol (VITAMIN D3) 1.25 MG (83987 UT) capsule Take 1 Capsule (50,000 Units) by mouth onceevery week. 12 Capsule 0 Facility-Administered Medications Prior to Visit Medication Dose Route Frequency Provider Last Rate Last Admin medroxyPROGESTERone (DEPO-PROVERA) injection 150 mg 150 mg Intramuscular [id number] Jennifer Palumbo PA-C 150 mg at 01/02/24 [...] (171.5 cm) Wt 273 lb 6.4 oz (449102 g) BMI 42.19 kg/m?? General: NAD Respiratory: [...] (BMI) of 40.0 to 44.9 in adult ([facility]) E66.01 Z68.41 Obesity-associated comorbid conditions listed above [...] her for bariatric surgery. Will message her panelboard assembler and inspectors and regulatory officers to re- submit PA for surgery. - [...] (Latest Contact Info) Description 04/25/2024 1:00 PM POLISHER BRASS Hospital Encounter [facility]ecostalism Operating Room [address] [facility] [place] [address] Jayme Gardiner MBBS [address] [address] 04/25/2024 1:00 PM POLISHER BRASS - 04/25/2024 3:55 PM POLISHER BRASS Surgery [facility]ostal[facility] Operating Room [address] [facility] [place] [address] Jayme Gardiner MBBS [address] [address] XI Robotic Laparoscopic Vertical Sleeve Gastrectomy 05/01/2024 10:30 AM POLISHER BRASS Appointment [facility] [address] [place], [place] [address]e. [address] [address] Bam Majano RN 05/26/2024 8:30 AM POLISHER BRASS Telemedicine [facility] [address] [place] [address]. [address] [address] Sierra Palm RDN, [place] [address] [place] [address] 05/26/2024 9:00 AM POLISHER BRASS Telemedicine [facility] [address] [facility]. [address] [place] [address] Bam Majano RN 06/09/2024 10:00 AM POLISHER BRASS Appointment Nursing at [facility] [address] [place] [phone] Scheduled Procedures Name Priority Associated Diagnoses Date/Ti me XI Robotic Laparoscopic Vertical Sleeve Gastrectomy Morbid obesity with BMI of 40.0-44.9, adult (HRC) 04/25/2024 1:00 PM POLISHER BRASS documented as of this encounter Visit Diagnoses Diagnosis Morbid obesity with body mass index (BMI) of 40.0 to 44.9 in adult (HRC)- Primary Morbid obesity with BMI of 40.0-44.9, adult (HRC) documented in this encounter Care Teams Engineering And Development Director Relationship Specialty Start Date End Date Jennifer Palumbo PA-C [address] [place] [address] PCP - General Physician Regional Production Manager 02/02/22 documented as of this encounter
--- OUTSIDE RECORDS SUMMARY | 2024-04-18 20:24 | XMS_ITS | Encounter Summary ---
Author Organization [employer] Address [address], [place] [address] Care Team Providers Care Tile Machine Operator Name Role Phone Jennifer Palumbo PA-C Primary Care Provider Reason for Visit * Reason Comments Morbid Obesity Video Visit Encounter Details Date Type Department Care Team (Late st Contact Info) Description 02/01/2024 10:00 AM CDT Telemedicine [facility] [address] [facility] [address] [place] [address] Meenakshi León RN Morbid obesity with body [...] (to equal 20 mg total) in the security services specialist on the day before surgery. Continue to [...] 10:00 AM CDT Group Video Visit via [employer] Preoperative Education - Bariatric Surgery Completed preoperative [...] contact number for questions. Encouraged to contact [facility] with any questions or concerns. Meenakshi León RN 02/01/2024, 11:30 AM documented in this encounter Plan of Treatment Upcoming Encounters Date Type Department Care Team (Latest Contact Info) Description 04/25/2024 1:00 PM [facility] Hospital Encounter [facility] Operating Room [address] [place] [address] Jayme Gardiner MBBS [address] [facility] [address] [place] [address] 04/25/2024 1:00 PM SMOKING PIPE MAKER - 04/25/2024 3:55 PM SMOKING PIPE MAKER Surgery [facility]abaptist Operating Room [address] [place] [address] Jayme Gardiner MBBS [address] [facility] [address] [place] [address] XI Robotic Laparoscopic Vertical Sleeve Gastrectomy 05/01/2024 10:30 AM SMOKING PIPE MAKER Appointment [facility] [place] [address] [place] [address] [place] [address] Bam Majano, MANDEEP 05/26/2024 8:30 AM SMOKING PIPE MAKER Telemedicine [facility] [address] [place] [address] Sierra Palm RDN, [address] [place] [address] 05/26/2024 9:00 AM SMOKING PIPE MAKER Telemedicine [facility] [address] [address] Bam Majano, MANDEEP 06/09/2024 10:00 AM SMOKING PIPE MAKER Appointment Nursing at [address] [phone] Scheduled Procedures Name Priority Associated Diagnoses Date/Ti me XI Robotic Laparoscopic Vertical Sleeve Gastrectomy Morbid obesity with BMI of 40.0-44.9, adult (HRC) 04/25/2024 1:00 PM SMOKING PIPE MAKER documented as of this encounter Visit Diagnoses Diagnosis Morbid obesity with body mass index (BMI) of 40.0 to 44.9 in adult (HRC)- Primary Morbid obesity with BMI of 40.0-44.9, adult (HRC) documented in this encounter Care Teams Tile Machine Operator Relationship Specialty Start Date End Date Jennifer Palumbo PA-C [address] [place] [address] PCP - General Physician Blue Line Hanger 02/02/22 documented as of this encounter
== END 2024-04-18 21:57 | disposition home or self-care (01) ==
PROVIDERS: Emergency Provider Family Medicine
DX: I47.9 Paroxysmal tachycardia, unspecified (principal)
CPT/HCPCS: 93005; 99284

== ENCOUNTER 2024-04-21 16:18 | Emergency (ER) | payer OTHER, SELFPAY ==
[2024-04-21] VITALS (7 sets, daily range): BP systolic 123–138; BP diastolic 71–89; PULSE 52–68; RESP 14–18; TEMP 36.8; O2SAT 98–100; BMI 43.1
--- NOTE | 2024-04-21 17:14 | ED.GENADULT ---
HPI - General Adult General Time Seen by Provider: 17:14 Date Seen: 04/21/24 Chief complaint: Dizziness/Vertigo Stated complaint: low BP due to new meds Time Seen by Provider: 04/21/24 17:13 Source: patient and RN notes reviewed Mode of arrival: ambulatory Limitations: no limitations History of Present Illness HPI narrative: This 34-year-old female is ambulatory into the ER and coming in with concern of not feeling well after taking atenolol. She saw a machinist first class in [place] earlier today for her tachycardia that has been problematic recently. She believes it was [place] [facility]. They are scheduling an echo, started her on atenolol. She took the atenolol at 1:00 a.m. today and her symptoms started an hour later. She is not feeling good, really feels nauseated, felt dizzy. Did check her blood pressure at home and was systolic of 139. She has felt just a little tightness in her chest with breathing as I am talking to her. We did discuss that atenolol should not cause any cardiac disease or heart attacks. She is worried her pulse might go lower, wonders how to get this out of her system. We discussed that this is a 24 hour medicine, her pulse is in the 60s but is not at a concerning low. I did review her watch, she had been running anywhere from 60 to 120s, looking at days when she is up and about, pulse can run higher. She consistently has been in the 60s since taking this medicine. She also notes that she just started on regular foods today, had been on a high-protein liquid diet since April 15 in preparation for gastric bypass surgery on the . Her gastric bypass surgery has been delayed due to these cardiac issues. She has been in the ER in March, a few days ago with complaint of sinus tachycardia. She did have a Zio patch done prior to her 2nd ED visit which did not show any thing but sinus rhythm. She was back in urgent care yesterday. She has also been in [place] ER. Related Data Home Medications ?Medication ?Instructions ?Recorded ?Confirmed estradiol cypionate IM 02/14/24 04/18/24 [Depo-Estradiol] atenolol 25 mg tablet 25 mg PO DAILY 04/21/24 04/21/24 Previous Rx's ?Medication ?Instructions ?Recorded ondansetron 4 mg disintegrating 4 mg PO Q6H PRN nausea and 04/21/24 tablet vomiting #10 tabs Allergies Allergy/AdvReac Type Severity Reaction Status Date / Time amoxicillin Allergy Verified 04/21/24 16:32 Penicillins Allergy Verified 04/21/24 16:32 Review of Systems Status of ROS: Reports: 6 or more systems reviewed and unremarkable except as noted in History and below PFSH PFS Social History Smoking Status: Never smoker How often do you have a drink containing alcohol: never AUDIT-C Alcohol total score: 0 Non-prescribed substance use: denies use Exam Const: Vital Signs, click to edit/add: Vital Signs - 24 hr 04/21/24 16:24 04/21/24 17:18 04/21/24 17:32 Temperature 98.3 F Pulse Rate 68 60 Pulse Rate [Right Pulse Oximeter] 68 Pulse Rate [orthos tatic lying] Pulse Rate [orthos tatic sitting] Pulse Rate [orthos tatic standing] Respiratory Rate 18 14 14 Blood Pressure 138/89 138/89 Blood Pressure [Ri ght Upper Arm] 137/87 Blood Pressure [or thostatic lying] Blood Pressure [or thostatic sitting] Blood Pressure [or thostatic standing ] Pulse Oximetry 100 98 100 Oxygen Delivery Me thod Room Air 04/21/24 17:34 04/21/24 17:58 04/21/24 18:30 Temperature Pulse Rate 62 Pulse Rate [Right Pulse Oximeter] Pulse Rate [orthos tatic lying] 52 L Pulse Rate [orthos tatic sitting] 62 Pulse Rate [orthos tatic standing] 65 Respiratory Rate 14 Blood Pressure Blood Pressure [Ri ght Upper Arm] Blood Pressure [or thostatic lying] 123/71 Blood Pressure [or thostatic sitting] 136/85 Blood Pressure [or thostatic standing ] 136/78 Pulse Oximetry 98 99 Oxygen Delivery Me thod This 34-year-old female seems slightly pale when I 1st come in, color does improving her cheeks by the end of the visit. Sclera clear, able speak in complete sentences. Neck supple, no JV distension. Lungs are clear, good air entry, wheezing or crackles, is able to sit up easily. CV regular rate and rhythm, no murmur noted, normal S1-S2, no S3-S4. Abdomen is soft, nontender, nondistended, no organomegaly. Patient was ambulatory into the ED. Documenting provider has reviewed patient's vital signs: yes Course Course ED Course: Will monitor her here for while just to see what her pulse does, it is around just before 6:00 p.m., medicine has been under system for about 5 hours so do think she is likely at probable peak effect of the heart lowering effects. Her blood pressure is stable. We reviewed that her pulse is not anything alarming but she may not necessarily feel well if it is suppressing her pulse and she is use to having a higher pulse rate. I am unclear as to nausea and proportions of side effects that this might pertain to. Will look this up. Will have her do orthostatic vitals, obtain EKG. Will give her some Zofran to see if it helps with her nausea. It is possible that her dietary changes may be causing some GI symptoms for her. She is not aware of any ill contacts and otherwise has not felt like she was coming down with something. Reevaluation(s) Time of Reevaluation #1: 19:00 Reevaluation #1: Patient remains in the low 60s on pulse oximetry. She states the Zofran has helped, she actually states she is starting to feel hungry. She is not sure if it was a side effect of the atenolol with nausea or change in her diet. We will send in some Zofran for her. She is comfortable to discharge at this time. We discussed half thing the atenolol dose, she states the machinist first class already told her this. Vital Signs Vital signs: Initial Vital Signs Temperature 98.3 F 04/21/24 16:24 Temperature Source Temporal Artery Scan 04/21/24 16:24 Pulse Rate 68 04/21/24 16:24 Pulse Rhythm Regular 04/21/24 16:24 Pulse Strength 3+ Normal 04/21/24 16:24 Respiratory Rate 18 04/21/24 16:24 Blood Pressure 137/87 04/21/24 16:24 Blood Pressure Mean 103 04/21/24 16:24 Blood Pressure Position Sitting 04/21/24 16:24 Pulse Oximetry 100 04/21/24 16:24 Oxygen Delivery Method Room Air 04/21/24 16:24 Vital Signs Temperature 98.3 F 04/21/24 16:24 Pulse Rate 68 04/21/24 16:24 Respiratory Rate 18 04/21/24 16:24 Blood Pressure 137/87 04/21/24 16:24 Pulse Oximetry 100 04/21/24 16:24 Oxygen Delivery Method Room Air 04/21/24 16:24 Temperature 98.3 F 04/21/24 16:24 Pulse Rate 62 04/21/24 18:30 Respiratory Rate 14 04/21/24 18:30 Blood Pressure 123/71 04/21/24 17:58 Pulse Oximetry 99 04/21/24 18:30 Oxygen Delivery Method Room Air 04/21/24 16:24 Medications Administered Medications: Discontinued Medications Generic Name Dose Route Start Last Admin Trade Name Freq PRN Reason Stop Dose Admin Ondansetron HCl 4 mg 04/21/24 17:34 04/21/24 17:48 Ondansetron Odt 4 Mg Tab PO 04/21/24 17:35 4 mg ONCE ONE Administration Medical Decision Making ECG Data Attestation: I personally reviewed and interpreted this ECG as follows: (Normal sinus rhythm with sinus arrhythmia, 64 beats per minute.) Prior ECG tracings: available for review (Initial EKG here was sinus tachycardia at 103, other 3 EKGs have her in sinus rhythm in the 80s.) Discharge Plan Discharge Clinical Impression: Nausea, Medication side effect Patient Disposition: Home, Self-Care Condition: Stable Instructions: Acute Nausea and Vomiting (ED), Adverse Drug Reaction (ED) Additional Instructions: Do recommend cutting year atenolol dosage in half tomorrow as was already advised by your machinist first class. There are no concerning changes in your blood pressure or pulse but the atenolol has indeed lower jaw pulse rate down. You may feel this at 1st, can take a while to adjust to this change. You will have to see if nausea is from the change in your diet, the medication or perhaps combination of both. Have sent in Zofran for you to use to treat nausea. Activity Level: Activity as Tolerated Prescriptions: New ondansetron 4 mg tablet,disintegrating 4 mg PO Q6H PRN (Reason: nausea and vomiting) Qty: 10 0RF No Action estradiol cypionate [Depo-Estradiol] IM atenolol 25 mg tablet 25 mg PO DAILY Follow Up/Referrals: Provider,Not a Local [Primary Care Provider] - Stand Alone Forms: [employer] Info Instructions
--- OUTSIDE RECORDS SUMMARY | 2024-04-21 17:47 | XMS_ITS | Encounter Summary ---
Author Organization [facility] Address [address] [place] [address] Care Team Providers Care Supervisor Word Processing Name Role Phone Jennifer Palumbo PA-C Primary Care Provider [phone] Reason for Referral * Procedure/Equipment (Routine) - Incomplete Specialty Diagnoses / Procedures Referred By Marie webb Referred To Contact Diagnoses Morbid obesity with BMI of 40.0-44.9, adult ([facility]) Procedures Case Request OR - General/Vascular Surg: XI Robotic Laparoscopic Vertical Sleeve Gastrectomy Jayme Gardiner MBBS [address] [facility] [address] [place] [address] Referral ID Status Reason Start Date Expiration Date V isits Requested Visits Authorized [id number] Incomplete 02/04/2024 05/05/2025 1 1 Reason for Visit * Reason Comments CONSULT Encounter Details Date Type Department Care Team (Late st Contact Info) Description 02/04/2024 2:40 PM CDT Office Visit [facility] [address] [facility] [address] [place], [place] [address] Jayme Gardiner MBBS [address] [facility] [address] [place] [address] Morbid obesity with BMI of 40.0-44.9, adult [...] (to equal 20 mg total) in the dental receptionist on the day before surgery. Continue to [...] Gardiner MBBS - 02/04/2024 2:40 PM CDT [facility] Bariatric Surgery Consult Date: 02/04/2024 Ely Campbell [...] in attempts to lose weight without any correction success. Methods of weight loss had included but are not limited to: medical weight management plan through her PCP, dietary modification, exercise regimen, and Wegovy Estimated body mass index is 43.05 kg/m?? as calculated from the following: Height as of this encounter: 5' 7.5 (171.5 cm). Weight as of this encounter: 279 lb (077661 g). Patient Active Problem List Diagnosis Abnormal [...] EXTRACTION Medications/Allergies: cholecalciferol (VITAMIN D3) 1.25 MG (46058 UT) capsule, Take 1 Capsule (50,000 Units) by mouth once every week., Disp: 12 Capsule, Rfl: 0 cholecalciferol (VITAMIN D3) 1.25 MG (21042 UT) capsule, Take 1 Capsule (50,000 Units) by mouth once every week., Disp: 12 Capsule, Rfl: 0 medroxyPROGESTERone (DEPO-PROVERA) injection 150 mg, 150 mg, Intramuscular, [id number], Jennifer Palumbo PA-C, 150 mg at 01/02/24 0951 Amoxicillin and Penicillins Physical Exam: Vitals: Ht 5' 7.5 (171.5 cm) Wt 279 lb (884400 g) BMI 43.05 kg/m?? Weight at start [...] Weight as of this encounter: 279 lb (972951 g). Ely Campbell meets criteria for bariatric [...] diets that do not lend themselves to correction satiety. A patient must achieve the result [...] weight gain, nutritional deficiencies, DVT, PE, CVA, DE Robotic approach contingent upon robotic platform availability. [...] Upcoming Encounters Date Type Department Care Team (Late st Contact Info) Description 04/25/2024 Hospital Encounter [facility] [address] [facility] [place] [address] Jayme Gardiner MBBS [address] [facility] [address] [place] [address] 06/09/2024 10:00 AM FIRST GRADE TEACHER Appointment Nursing at [address] [address] Scheduled Procedures Name Priority Associated Diagnoses Date/Ti me XI Robotic Laparoscopic Vert ical Sleeve Gastrectomy Morbid obesity with BMI of 40.0-44.9, adult ([facility]) documented as of this encounter Visit Diagnoses Diagnosis Morbid obesity with BMI of 40.0-44.9, adult ([facility])- Primary Morbid obesity with BMI of 40.0-44.9, adult ([facility])- Primary documented in this encounter Care Teams Supervisor Word Processing Relationship Specialty Start Date End Date Jennifer Palumbo, SALLY [address] [place] [address] PCP - General Physician Floor Runner 02/02/22 documented as of this encounter
--- OUTSIDE RECORDS SUMMARY | 2024-04-21 17:47 | XMS_ITS | Encounter Summary ---
Author Organization [facility] Address [address] [place] [address] Care Team Providers Care Elementary [employer] Counselor Name Role Phone Jennifer Palumbo PA-C Primary Care Provider [phone] Encounter Details Date Type Department Care Team (Late st Contact Info) Description 2024 Notes/Orders [facility] [address] [facility] [address] [place], [place] [id number] Letitia Isaac Social History Tobacco Use Types [...] st Contact Info) Description 04/25/2024 Hospital Encounter [facility] [address] [facility] [place], [place] [address] Jayme Gardiner MBBS [address] [facility] [address] [place], [place] [address] 06/09/2024 10:00 AM STEM CUTTER Appointment Nursing at [address] [address] Scheduled Procedures Name Priority Associated Diagnoses Date/Ti me XI Robotic Laparoscopic Vert ical Sleeve Gastrectomy Morbid obesity with BMI of 40.0-44.9, adult ([facility]) documented as of this encounter Visit Diagnoses Not on filedocumented in this encounter Care Teams Elementary [employer] Counselor Relationship Specialty Start Date End Date Jennifer Palumbo PA-C [address] [place] [address] PCP - General Physician Supervisor Reclamation 02/02/22 documented as of this encounter
--- OUTSIDE RECORDS SUMMARY | 2024-04-21 17:47 | XMS_ITS | Encounter Summary ---
Author Organization [facility] Address [address] [address] Care Team Providers Care Strategic Planning Analyst Name Role Phone Jennifer Palumbo PA-C Primary Care Provider [phone] Reason for Visit * Reason Comments Careplan: General Encounter Details Date Type Department Care Team (Late st Contact Info) Description 04/18/2024 Telephone [facility] [address] [facility] [address] [place], [place] [address] Julio Cesar Gao, RN Careplan: General Social [...] day before surgery, pre-op shower instructions given. IAGE DOGGER documented in this encounter Plan of Treatment Upcoming Encounters Date Type Department Care Team (Late st Contact Info) Description 04/25/2024 Hospital Encounter [facility] [address] [facility] [address] Jayme aGrdiner MBBS [address] [facility] [address] [place] [address] 06/09/2024 10:00 AM CARRIAGE DOGGER Appointment Nursing at [address] [address] Scheduled Procedures Name Priority Associated Diagnoses Date/Ti me XI Robotic Laparoscopic Vert ical Sleeve Gastrectomy Morbid obesity with BMI of 40.0-44.9, adult ([facility]) documented as of this encounter Visit Diagnoses Not on filedocumented in this encounter Care Teams Strategic Planning Analyst Relationship Specialty Start Date End Date Jennifer Palumbo PA-C [address] [place] [address] PCP - General Physician Spin Tank Tender 02/02/22 documented as of this encounter
--- OUTSIDE RECORDS SUMMARY | 2024-04-21 17:47 | XMS_ITS | Encounter Summary ---
Author Organization [facility] Address [address] [place] [address] Care Team Providers Care Power Generation Plant Operator Name Role Phone Jennifer Palumbo Primary Care Provider [phone] Reason for Visit * Reason Comments Palpitations Encounter Details Date Type Department Care Team (Late st Contact Info) Description 04/19/2024 8:42 AM HEARING SCREENER - 04/19/2024 11:04 AM HEARING SCREENER Emergency [facility] [address] [place] [address] [phone] Cezar Jhaveri MD EMERGENCY PHYSICIAN [facility] [address] [facility] [place] [phone] Palpitations Discharge Disposition: Home or Self Care Social History Tobacco Use Types Packs/Day Years Used Date Smoking Tobacco: Never Assessed Adolescent Education Answer Date Record ed Getting School Help Needed Not on file 02/03 Comments No Sex and Gender Information Value Date Recorded Sex Assigned at Not on file Legal Sex Female 6:11 PM HEARING SCREENER Gender Identity Not on file Sexual Orientation Not on file documented as of this encounter Last Filed Vital Signs Vital Sign Reading Time Taken Comments Blood Pressure 118/78 04/19/2024 10:45 AM HEARING SCREENER Pulse 81 04/19/2024 11:00 AM HEARING SCREENER Temperature 36.3 C (97.4 F) 04/19/2024 8:42 AM HEARING SCREENER Respiratory Rate 28 04/19/2024 11:00 AM HEARING SCREENER Oxygen Saturation 98% 04/19/2024 11:00 AM HEARING SCREENER Inhaled Oxygen Concentration - - Weight 125.9 kg (277 lb 9 oz) 04/19/2024 8:42 AM HEARING SCREENER Height 170.2 cm (5' 7) 04/19/2024 8:42 AM HEARING SCREENER Body Mass Index 43.47 04/19/2024 8:42 AM HEARING SCREENER documented in this encounter Discharge Instructions * Attachments The following attachments cannot be sent through Care Everywhere. * Palpitations (Bangladeshi) documented in this encounter Medications at Time of Discharge LORazepam (ATIVAN) 0.5 MG tablet Take 1 tablet (0.5 mg) by mouth every 6 hours as needed (dizziness) 6 tablet 06/18/2021 meclizine (ANTIVERT) 25 MG tablet Take 1 tablet (25 mg) by mouth 3 times daily as needed for dizziness 20 tablet 06/18/2021 methocarbamol (ROBAXIN) 500 MG tablet Take 1 tablet (500 mg) by mouth 4 times daily as needed for muscle spasms 30 tablet 09/11/2023 documented as of this encounter ED Notes * Cezar Jhaveri MD - 04/19/2024 9:35 AM CST Emergency Department Note History of Present Illness Chief Complaint Palpitations HPI Ely Campbell is a 34 year old female who presents with an episode of palpitations this morning. Patient has had intermittent episodes of palpitations over the past month. She checks her Apple Watch during these episodes and she has noticed heart rate as high as 210. She was seen at [facility] on 03/29 and had a workup performed. She then had a Zio patch which she wore for 2 weeks. She denies having any palpitations while she had the Zio patch on. She had another episode of palpitations and tachycardia yesterday which prompted another visit to the [facility]. She notes that she feels dizzy when she has these episodes. She denies any chest pain or shortness of breath but does have some discomfort in her jaw and neck. She denies any recent illnesses including no fevers, vomiting, diarrhea, bloody stools, heavy periods, leg swelling or calf pain. She does not take any prescribed medications. She is scheduled for a bariatric surgery upcoming. Independent Historian None Review of External Notes I reviewed the Zio patch results from 03/28/2024. The patient had no arrhythmias during her Zio patch. I reviewed [facility] visit from yesterday. EKG showed sinus and she was observed for period of time before discharge. Past Medical History Medical History and Problem List Obesity Medications LORazepam (ATIVAN) 0.5 MG tablet meclizine (ANTIVERT) 25 MG tablet methocarbamol (ROBAXIN) 500 MG tablet Surgical History No past surgical history on file. Physical Exam Patient Vitals for the past 24 hrs: BP Temp Temp src Pulse Resp SpO2 Height Weight 04/19/24 1000 109/73 -- -- 72 14 97 % -- -- 04/19/24 0930 109/69 -- -- 74 15 97 % -- -- 04/19/24 0842 129/87 97.4 ??F (36.3 ??C) Temporal 96 16 100 % 1.702 m (5' 7) 125.9 kg (277 lb 9 oz) Physical Exam Vitals and nursing note reviewed. Constitutional: General: She is not in acute distress. Appearance: She is not ill-appearing. HENT: Head: Normocephalic and atraumatic. Right Ear: External ear normal. Left Ear: External ear normal. Nose: Nose normal. Mouth/Throat: Mouth: Mucous membranes are moist. Eyes: Extraocular Movements: Extraocular movements intact. Conjunctiva/sclera: Conjunctivae normal. Cardiovascular: Rate and Rhythm: Normal rate and regular rhythm. Heart sounds: No murmur heard. Pulmonary: Effort: Pulmonary effort is normal. No respiratory distress. Breath sounds: Normal breath sounds. No wheezing, rhonchi or rales. Abdominal: General: Abdomen is flat. Bowel sounds are normal. There is no distension. Palpations: Abdomen is soft. Tenderness: There is no abdominal tenderness. There is no guarding or rebound. Musculoskeletal: General: No deformity or signs of injury. Cervical back: Normal range of motion and neck supple. Skin: General: Skin is warm and dry. Findings: No rash. Neurological: Mental Status: She is alert and oriented to person, place, and time. Psychiatric: Behavior: Behavior normal. Diagnostics Lab Results Labs Ordered and Resulted from Time of ED Arrival to Time of ED Departure BASIC METABOLIC PANEL - Abnormal Result Value Sodium 137 Potassium 4.2 Chloride 103 Carbon Dioxide (CO2) 21 (*) Anion Gap 13 Urea Nitrogen 16.7 Creatinine 0.83 GFR Estimate >90 Calcium 9.4 Glucose 104 (*) TSH WITH FREE T4 REFLEX - Normal TSH 1.84 CBC WITH PLATELETS AND DIFFERENTIAL WBC Count 8.7 RBC Count 4.80 Hemoglobin 13.9 Hematocrit 40.7 MCV 85 MCH 29.0 MCHC 34.2 RDW 12.0 Platelet Count 229 % Neutrophils 73 % Lymphocytes 19 % Monocytes 7 % Eosinophils 0 % Basophils 1 % Immature Granulocytes 0 NRBCs per 100 WBC 0 Absolute Neutrophils 6.3 Absolute Lymphocytes 1.7 Absolute Monocytes 0.6 Absolute Eosinophils 0.0 Absolute Basophils 0.0 Absolute Immature Granulocytes 0.0 Absolute NRBCs 0.0 Imaging No orders to display EKG ECG results from 04/19/24 EKG 12 lead Value Systolic Blood Pressure Diastolic Blood Pressure Ventricular Rate 84 Atrial Rate 84 OR Interval 152 QRS Duration 88 QT 366 QTc 432 P Beaver 20 R AXIS 41 T Beaver 40 Interpretation ECG Sinus rhythm Low voltage QRS Borderline ECG When compared with ECG of 18-Jun-2021 09:50, No significant change was found Independent Interpretation None ED Course Medications Administered Medications - No data to display Procedures Procedures Discussion of Management None ED Course Additional Documentation None Medical Decision Making / Diagnosis [facility] Diagnoses: None MIPS None [facility] Ely Campbell is a 34 year old female who presents with ongoing intermittent palpitations andtachycardia. On arrival to the ED she is not tachycardic and her EKG shows no signs of any arrhythmias. It is unclear what the etiology of her symptoms is. She certainly could be having paroxysmal SVT or A-fib. She wore a Zio patch recently which was negative but she did not have any episodes during that time. She has been seen in the ED twice for this with negative workup. I doubt that we will be able to determine any etiology while she is in the ED. We will watch her on the monitor and check CBC and electrolytes. Assuming her workup is reassuring and she does not have any arrhythmias while she is here, she can follow-up closely with her primary care doctor for further outpatient evaluation. 1054 lab work is reassuring. She has been in sinus rhythm throughout her ED stay. Will plan to discharge with outpatient follow-up. Disposition The patient was discharged. Diagnosis ICD-10-CM 1. Palpitations R00.2 Discharge Medications New Prescriptions No medications on file MD Emilio Fernandes Shaun M, MD 04/19/24 1055 ING SCREENER * Sharon Neves - 04/19/2024 8:53 AM CST Placed Pt. on monitor (5-lead continous ECG, pulse ox, BP cuff). ING SCREENER * Kiersten Harley, RN - 04/19/2024 8:40 AM CST Pt arrives with c/o palpitations. Pt reports her apple watch showed her heart rate was in the 160'anusha morning and she was feeling SOB. Pt reports being seen in [place] for the same thing yesterday and on 03/29 with nothing abnormal found. Triage Assessment (Adult) Row Name 04/19/24 0840 Triage Assessment Airway WDL WDL Respiratory WDL Respiratory WDL WDL Skin Circulation/Temperature WDL Skin Circulation/Temperature WDL WDL Cardiac WDL Cardiac WDL WDL Peripheral/Neurovascular WDL Peripheral Neurovascular WDL WDL Cognitive/Neuro/Behavioral WDL Cognitive/Neuro/Behavioral WDL WDL ING SCREENER documented in this encounter Plan of Treatment Not on file documented as of this encounter Procedures Procedure Name Priority Date/Time Associated Diagnosis Comments CBC WITH PLATELETS AND DIFFERENTIAL STAT 04/19/2024 10:12 AM HEARING SCREENER CBC WITH PLATELETS & DIFFERENTIAL STAT 04/19/2024 10:12 AM HEARING SCREENER TSH WITH FREE T4 REFLEX STAT 04/19/2024 10:12 AM HEARING SCREENER BASIC METABOLIC PANEL STAT 04/19/2024 10:12 AM HEARING SCREENER EKG 12-LEAD, TRACING ONLY STAT 04/19/2024 8:36 AM HEARING SCREENER documented in this encounter Results * CBC with platelets and differential (04/19/2024 10:12 AM HEARING SCREENER) [facility] WBC Count 8.7 4.0 - 11.0 10e3/uL 04/19/2024 10:19 AM HEARING SCREENER [facility] RBC Count 4.80 3.80 - 5.20 10e6/uL 04/19/2024 10:19 AM HEARING SCREENER [facility] Hemoglobin 13.9 11.7 - 15.7 g/dL 04/19/2024 10:19 AM HEARING SCREENER [facility] Hematocrit 40.7 35.0 - 47.0 % 04/19/2024 10:19 AM HEARING SCREENER [facility] MCV 85 78 - 100 fL 04/19/2024 10:19 AM HEARING SCREENER [facility] MCH 29.0 26.5 - 33.0 pg 04/19/2024 10:19 AM HEARING SCREENER [facility] MCHC 34.2 31.5 - 36.5 g/dL 04/19/2024 10:19 AM HEARING SCREENER [facility] RDW 12.0 10.0 - 15.0 % 04/19/2024 10:19 AM HEARING SCREENER [facility] Platelet Count 229 150 - 450 10e3/uL 04/19/2024 10:19 AM HEARING SCREENER [facility] % Neutrophils 73 % 04/19/2024 10:19 AM HEARING SCREENER [facility] % Lymphocytes 19 % 04/19/2024 10:19 AM HEARING SCREENER [facility] % Monocytes 7 % 04/19/2024 10:19 AM HEARING SCREENER [facility] % Eosinophils 0 % 04/19/2024 10:19 AM HEARING SCREENER [facility] % Basophils 1 % 04/19/2024 10:19 AM HEARING SCREENER [facility] % Immature Granulocytes 0 % 04/19/2024 10:19 AM HEARING SCREENER [facility] NRBCs per 100 WBC 0 <1 /100 024 10:19 AM HEARING SCREENER [facility] Absolute Neutrophils 6.3 1.6 - 8.3 10e3/uL 04/19/2024 10:19 AM HEARING SCREENER [facility] Absolute Lymphocytes 1.7 0.8 - 5.3 10e3/uL 04/19/2024 10:19 AM HEARING SCREENER [facility] Absolute Monocytes 0.6 0.0 - 1.3 10e3/uL 04/19/2024 10:19 AM HEARING SCREENER [facility] Absolute Eosinophils 0.0 0.0 - 0.7 10e3/uL 04/19/2024 10:19 AM HEARING SCREENER [facility] Absolute Basophils 0.0 0.0 - 0.2 10e3/uL 04/19/2024 10:19 AM HEARING SCREENER [facility] Absolute Immature Granulocytes 0.0 <=0.4 10e3/uL 04/19/2024 10:19 AM HEARING SCREENER LABORATORY Absolute NRBCs 0.0 10e3/uL 04/19/2024 10:19 AM HEARING SCREENER LABORATORY Blood STRUCTURE OF RIGHT UPPER LIMB / Unknown Venipuncture / Unknown 04/19/2024 10:12 AM HEARING SCREENER 04/19/2024 10:16 AM HEARING SCREENER Cezar Jhaveri MD LAB - BLOOD ORDERABLES Final Result LABORATORY [facility] Lab [address] Lab (1st floor, no room number) [address] * TSH with free T4 reflex (04/19/2024 10:12 AM HEARING SCREENER) TSH 1.84 0.30 - 4.20 uIU/mL 04/19/2024 10:48 AM HEARING SCREENER LABORATORY Blood STRUCTURE OF RIGHT UPPER LIMB / Unknown Venipuncture / Unknown 04/19/2024 10:12 AM HEARING SCREENER 04/19/2024 10:16 AM HEARING SCREENER us Cezar Jhaveri MD LAB - BLOOD ORDERABLES Final Result LABORATORY [facility] Lab [address] Lab (1st floor, no room number) [place] [id number] * (ABNORMAL) Basic metabolic panel (04/19/2024 10:12 AM HEARING SCREENER) Sodium 137 135 - 145 mmol/L 04/19/2024 10:41 AM HEARING SCREENER LABORATORY Potassium 4.2 3.4 - 5.3 mmol/L 04/19/2024 10:41 AM HEARING SCREENER LABORATORY Chloride 103 98 - 107 mmol/L 04/19/2024 10:41 AM [facility] Carbon Dioxide (CO2) 21(L) 22 - 29 mmol/L 04/19/2024 10:41 AM [facility] Anion Gap 13 7 - 15 mmol/L 04/19/2024 10:41 AM [facility] Urea Nitrogen 16.7 6.0 - 20.0 mg/dL 04/19/2024 10:41 AM [facility] Creatinine 0.83 0.51 - 0.95 mg/dL 04/19/2024 10:41 AM [facility] GFR Estimate >90 >60 mL/min/1.7 3m2 04/19/2024 10:41 AM [facility] Comment:eGFR calculated usin g 2020 CKD-EPI equation. Calcium 9.4 8.8 - 10.4 mg/dL 04/19/2024 10:41 AM [facility] Comment:Reference intervals for this test were updated on 11/27/2023 to reflect our healthy population more accurately. There may be differences in the flagging of prior results with similar values performed with this method. Those prior results can be interpreted in the context of the updated reference intervals. Glucose 104(H) 70 - 99 mg/dL 04/19/2024 10:41 AM [facility] Blood STRUCTURE OF RIGHT UPPER LIMB / Unknown Venipuncture / Unknown 04/19/2024 10:12 AM HEARING SCREENER 04/19/2024 10:16 AM HEARING SCREENER us Cezar Jhaveri MD LAB - BLOOD ORDERABLES Final Result LABORATORY [facility] [address] Lab (1st floor, no room number) [place] [address] * EKG 12 lead (04/19/2024 8:36 AM HEARING SCREENER) Systolic Blood Pressure mmHg RADIOLOGY RESULTS Diastolic Blood Pressure mmHg RADIOLOGY RESULTS Ventricular Rate 84 BPM RAD IOLOGY RESULTS Atrial Rate 84 BPM RADIOLOG Y RESULTS OR Interval 152 ms RADIOLOG Y RESULTS QRS Duration 88 ms RADIOLO GY RESULTS QT 366 ms RADIOLOGY RESULTS QTc 432 ms RADIOLOGY RESULTS P Beaver 20 degrees RADIOLOGY RESULTS R AXIS 41 degrees RADIOLOGY RESULTS T Beaver 40 degrees RADIOLOGY RESULTS Interpretation ECG Sinus rhythm Low voltage QRS Borderline ECG When compared with ECG of 18-Jun-2021 09:50, No significant change was found Confirmed by - EMERGENCY ROOM, PHYSICIAN ([id number]), features editor SAMAN CRUZ ([id number]) on 04/21/2024 7:02:21 AM RADIOLOGY RESULTS 04/19/2024 8:36 AM HEARING SCREENER 04/21/2024 7:02 AM HEARING SCREENER us Constantine Brown MD ECG ORDERABLES Edited Result - Final RADIOLOGY RESULTS documented in this encounter Visit Diagnoses Diagnosis Palpitations documented in this encounter Care Teams Power Generation Plant Operator Relationship Specialty Start Date End Date Jennifer Palumbo [facility] [address] [place] [address] PCP - General 09/11/23 documented as of this encounter
--- OUTSIDE RECORDS SUMMARY | 2024-04-21 17:47 | XMS_ITS | Encounter Summary ---
Author Organization [facility] Address [address] [place] [address] Care Team Providers Care Angiography Nurse Name Role Phone Gastroenterology, [facility] Primary Care Pr ovider Unavailable Jennifer Palumbo Primary Care Provider [phone] Encounter Details Date Type Department Care Team (Late st Contact Info) Description 06/15/2021 Documentation Only INTERFACED REPORT Unknown, Provider Social History Tobacco Use Types Packs/Day Years Used Date Smoking Tobacco: Never Assessed Comments No Sex and Gender Information Value Date Recorded Sex Assigned at Not on file Legal Sex Female 6:11 PM TELECOMMUNICATION OPERATOR Gender Identity Not on file Sexual Orientation Not on file COVID-19 Exposure Response Date Recorded In the last month, have you been in contact with someone who was confirmed or suspected to have Coronavirus / COVID-19? No / Unsure 06/18/2021 9:08 AM TELECOMMUNICATION OPERATOR documented as of this encounter Plan of Treatment Not on file documented as of this encounter Visit Diagnoses Not on filedocumented in this encounter Care Teams Angiography Nurse Relationship Specialty Start Date End Date Gastroenterology, [facility] PCP - General Gastroenterology 06/15/21 08/22/22 Jennifer Palumbo [facility] [address] [place] [address] PCP - General 09/11/23 documented as of this encounter
--- OUTSIDE RECORDS SUMMARY | 2024-04-21 17:47 | XMS_ITS | Encounter Summary ---
Author Organization [facility] Address [address], [place] [address] Care Team Providers Care Dredging Inspector Name Role Phone Jennifer Palumbo PA-C Primary Care Provider [phone] Reason for Visit * Reason Comments Depo Provera Injection Encounter Details Date Type Department Care Team (Latest Contact Info) Description 03/19/2024 8:00 AM SINTERING PLANT SUPERVISOR Nursing Visit Nursing at [address] [address] Surveillance of contraceptive injection (Primary [...] Instructions* SayRadha LPN - 03/19/2024 8:00 AM SINTERING PLANT SUPERVISOR Depo-Provera injection was given today, 03/19/24. Next [...] approved injection administration at the visit today ERING PLANT SUPERVISOR documented in this encounter Progress Notes * [...] at the visit today 03/19/2024, 8:01 AM ERING PLANT SUPERVISOR documented in this encounter Nursing Notes * [...] 3 Radha Eldridge LPN, 03/17/2024, 2:14 PM ERING PLANT SUPERVISOR documented in this encounter Plan of Treatment Upcoming Encounters Date Type Department Care Team (Late st Contact Info) Description 04/25/2024 Hospital Encounter [facility] [address] [facility] [address] Jayme Gardiner MBBS [address] [facility] [address] [place], [place] [address] 06/09/2024 10:00 AM SINTERING PLANT SUPERVISOR Appointment Nursing at [address] [address] Scheduled Procedures Name Priority Associated Diagnoses Date/Ti me XI Robotic Laparoscopic Vert ical Sleeve Gastrectomy Morbid obesity with BMI of 40.0-44.9, adult ([facility]C) documented as of this encounter Visit Diagnoses Diagnosis Morbid obesity with BMI of 40.0-44.9, adult (HRC)- Primary Surveillance of contraceptive injection- Primary Surveillance of other previously prescribed contraceptive method documented in this encounter Administered Medications Active [...] Administration: Single glove Given 03/19/2024 8:08 AM SINTERING PLANT SUPERVISOR 150 mg Right Ventralgluteal Given 01/02/2024 9:51 AM CDT 150 mg Le ft Ventralgluteal Given 10/17/2023 10:51 AM CDT 150 mg R ight Ventralgluteal documented in this encounter Care Teams Dredging Inspector Relationship Specialty Start Date End Date Jennifer Palumbo PA-C [address] [place], [place] [id number] PCP - General Physician Paver 02/02/22 documented as of this encounter
--- OUTSIDE RECORDS SUMMARY | 2024-04-21 17:47 | XMS_ITS | Encounter Summary ---
Author Organization [facility] Address [address] [place] [address] Care Team Providers Care Candle Pourer Name Role Phone Jennifer Palumbo PA-C Primary Care Provider [phone] Reason for Visit * Reason Comments Nutrition Counseling Encounter Details Date Type Department Care Team (Late st Contact Info) Description 04/14/2024 8:00 AM TUCKPOINTER Telemedicine [facility] [address] [facility] [address] [place], [place] [address] Sierra Palm RDN, LD [address] [place], [place] [id number] Morbid obesity with BMI of 40.0-44.9, adult [...] 122.5 kg (270 lb) 04/13/2024 8:18 PM TUCKPOINTER Height 170.2 cm (5' 7) 04/13/2024 8:18 PM TUCKPOINTER Body Mass Index 42.29 04/13/2024 8:18 PM TUCKPOINTER documented in this encounter Progress Notes * Sierra Palm RDN, LD - 04/14/2024 8:00 AM CST [facility] Nutrition Therapy: Bariatric Pre-Op ASSESSMENT: Referring [...] minutes. This visit was conducted via video POINTER documented in this encounter Plan of Treatment Upcoming Encounters Date Type Department Care Team (Late st Contact Info) Description 04/25/2024 Hospital Encounter [facility] [address] [place] [address]. [place] [address] Jayme Gardiner MBBS [address] [facility] [address] [place] [address] 06/09/2024 10:00 AM TUCKPOINTER Appointment Nursing at [address] [phone] Scheduled Procedures Name Priority Associated Diagnoses Date/Ti me XI Robotic Laparoscopic Vert ical Sleeve Gastrectomy Morbid obesity with BMI of 40.0-44.9, adult (HRC) documented as of this encounter Visit Diagnoses Diagnosis Morbid obesity with BMI of 40.0-44.9, adult (HRC)- Primary Morbid obesity with BMI of 40.0-44.9, adult (HRC)- Primary documented in this encounter Care Teams Candle Pourer Relationship Specialty Start Date End Date Jennifer Palumbo PA-C [address] [place] [address] PCP - General Physician Capability Lead 02/02/22 documented as of this encounter
--- OUTSIDE RECORDS SUMMARY | 2024-04-21 17:47 | XMS_ITS | Encounter Summary ---
Author Organization [facility] Address [address] [address] Care Team Providers Care Chief Wellness Officer Name Role Phone Jennifer Palumbo PA-C Primary Care Provider [phone] Reason for Visit * Reason Comments Follow-up Encounter Details Date Type Department Care Team (Late st Contact Info) Description 04/21/2024 Telephone [facility] [address] [facility] [address] [place] [address] Roxana Maynard PA-C [address] [place] [address] Follow-up Social History Tobacco Use Types Packs/Day Years [...] as of this encounter Nursing Notes * Roxana Maynard PA-C - 04/21/2024 2:56 PM CST Called patient to discuss recent symptoms of tachycardia. Patient had appointment with Cardiology through [facility] today. She will be getting an ECHO. She has been started on atenolol. At this time, patient wishes to postpone surgery on 04/25/24 while undergoing cardiac work up and to plan for surgery at a later date. Roxana Maynard PA-C WIRE BUILDER documented in this encounter Plan of Treatment Upcoming Encounters Date Type Department Care Team (Late st Contact Info) Description 04/25/2024 Hospital Encounter [facility] Operating Room [address] [facility]. [place], [place] [id number] Jayme Gardiner MBBS [address] [facility] [address] [place], [place] [phone] 06/09/2024 10:00 AM DROP WIRE BUILDER Appointment Nursing at [address] [address] Scheduled Procedures Name Priority Associated Diagnoses Date/Ti me XI Robotic Laparoscopic Vert ical Sleeve Gastrectomy Morbid obesity with BMI of 40.0-44.9, adult (HRC) documented as of this encounter Visit Diagnoses Not on filedocumented in this encounter Care Teams Chief Wellness Officer Relationship Specialty Start Date End Date Jennifer Palumbo PA-C [address] [place] [address] PCP - General Physician Billboard Erector 02/02/22 documented as of this encounter
--- OUTSIDE RECORDS SUMMARY | 2024-04-21 17:47 | XMS_ITS | Encounter Summary ---
Author Organization [employer] Address [address], [place] [address] Care Team Providers Care Frozen Meat Cutter Name Role Phone Jennifer Palumbo PA-C Primary Care Provider [phone] Reason for Visit * Reason Comments Morbid Obesity Video Visit Encounter Details Date Type Department Care Team (Late st Contact Info) Description 02/01/2024 10:00 AM CDT Telemedicine [facility] [address] [facility] [address] [place] [address] Meenakshi León RN Morbid obesity with body [...] (to equal 20 mg total) in the inspector multifocal lens on the day before surgery. Continue to [...] 10:00 AM CDT Group Video Visit via [facility] Preoperative Education - Bariatric Surgery Completed preoperative [...] contact number for questions. Encouraged to contact [facility] with any questions or concerns. Meenakshi León RN 02/01/2024, 11:30 AM documented in this encounter Plan of Treatment Upcoming Encounters Date Type Department Care Team (Late st Contact Info) Description 04/25/2024 Hospital Encounter [facility] [address] [facility] [address] Jayme Gardiner MBBS [address] [facility] [address] [place] [address] 06/09/2024 10:00 AM ADULT SCHOOL TEACHER Appointment Nursing at [address] [phone] Scheduled Procedures Name Priority Associated Diagnoses Date/Ti me XI Robotic Laparoscopic Vert ical Sleeve Gastrectomy Morbid obesity with BMI of 40.0-44.9, adult ([facility]) documented as of this encounter Visit Diagnoses Diagnosis Morbid obesity with body mass index (BMI) of 40.0 to 44.9 in adult (HRC)- Primary documented in this encounter Care Teams Frozen Meat Cutter Relationship Specialty Start Date End Date Jennifer Palumbo PA-C [address] [place] [address] PCP - General Physician Circuit Design Engineer 02/02/22 documented as of this encounter
--- OUTSIDE RECORDS SUMMARY | 2024-04-21 17:47 | XMS_ITS | Referral Summary ---
Author Organization [employer] Address [address] [place] [address] Care Team Providers Care Parts Sales Manager Name Role Phone Jeninfer Palumbo Primary Care Provider [phone] Encounters Date Type Department Care Team Description 04/19/2024 Travel 04/19/2024 8:42 AM PREPARED FOODS ASSOCIATE - 04/19/2024 11:04 AM [facility] Emergency Dept [address] [place] [address] [phone] Cezar Jhaveri MD Palpitations Discharge Disposition: Home or Self Care from Last 3 Months Allergies Active Allergy Reactions Criticality Noted Date Comments Amoxicillin 06/15/2021 Penicillins Hives,Rash Low 08/12/2001 Medications meclizine (ANTIVERT) 25 MG tablet Take 1 tablet (25 mg) by mouth 3 times daily as needed for dizziness 20 tablet 2 Active LORazepam (ATIVAN) 0.5 MG tablet Take 1 tablet (0.5 mg) by mouth every 6 hours as needed (dizziness) 6 tablet 2 Active methocarbamol (ROBAXIN) 500 MG tablet Take 1 tablet (500 mg) by mouth 4 times daily as needed for muscle spasms 30 tablet 4 Active Social History Tobacco Use Types Packs/Day Years Used Date Smoking Tobacco: Never Assessed Adolescent Education Answer Date Record ed Getting School Help Needed Not on file 02/03 Comments No Sex and Gender Information Value Date Recorded Sex Assigned at Not on file Legal Sex Female 6:11 PM PREPARED FOODS ASSOCIATE Gender Identity Not on file Sexual Orientation Not on file Last Filed Vital Signs Vital Sign Reading Time Taken Comments Blood Pressure 118/78 04/19/2024 10:45 AM PREPARED FOODS ASSOCIATE Pulse 81 04/19/2024 11:00 AM PREPARED FOODS ASSOCIATE Temperature 36.3 C (97.4 F) 04/19/2024 8:42 AM PREPARED FOODS ASSOCIATE Respiratory Rate 28 04/19/2024 11:00 AM PREPARED FOODS ASSOCIATE Oxygen Saturation 98% 04/19/2024 11:00 AM PREPARED FOODS ASSOCIATE Inhaled Oxygen Concentration - - Weight 125.9 kg (277 lb 9 oz) 04/19/2024 8:42 AM PREPARED FOODS ASSOCIATE Height 170.2 cm (5' 7) 04/19/2024 8:42 AM PREPARED FOODS ASSOCIATE Body Mass Index 43.47 04/19/2024 8:42 AM PREPARED FOODS ASSOCIATE Plan of Treatment Not on file Procedures Procedure Name Priority Date/Time Associated Diagnosis Comments CBC WITH PLATELETS & DIFFERENTIAL STAT 04/19/2024 10:12 AM PREPARED FOODS ASSOCIATE CBC WITH PLATELETS AND DIFFERENTIAL STAT 04/19/2024 10:12 AM PREPARED FOODS ASSOCIATE TSH WITH FREE T4 REFLEX STAT 04/19/2024 10:12 AM PREPARED FOODS ASSOCIATE BASIC METABOLIC PANEL STAT 04/19/2024 10:12 AM PREPARED FOODS ASSOCIATE EKG 12-LEAD, TRACING ONLY STAT 04/19/2024 8:36 AM PREPARED FOODS ASSOCIATE from Last 3 Months Results * CBC with platelets and differential (04/19/2024 10:12 AM PREPARED FOODS ASSOCIATE) WBC Count 8.7 4.0 - 11.0 10e3/uL 04/19/2024 10:19 AM PREPARED FOODS ASSOCIATE [facility] RBC Count 4.80 3.80 - 5.20 10e6/uL 04/19/2024 10:19 AM PREPARED FOODS ASSOCIATE [facility] Hemoglobin 13.9 11.7 - 15.7 g/dL 04/19/2024 10:19 AM PREPARED FOODS ASSOCIATE [facility] Hematocrit 40.7 35.0 - 47.0 % 04/19/2024 10:19 AM PREPARED FOODS ASSOCIATE [facility] MCV 85 78 - 100 fL 04/19/2024 10:19 AM PREPARED FOODS ASSOCIATE [facility] MCH 29.0 26.5 - 33.0 pg 04/19/2024 10:19 AM PREPARED FOODS ASSOCIATE [facility] MCHC 34.2 31.5 - 36.5 g/dL 04/19/2024 10:19 AM PREPARED FOODS ASSOCIATE [facility] RDW 12.0 10.0 - 15.0 % 04/19/2024 10:19 AM PREPARED FOODS ASSOCIATE [facility] Platelet Count 229 150 - 450 10e3/uL 04/19/2024 10:19 AM PREPARED FOODS ASSOCIATE [facility] % Neutrophils 73 % 04/19/2024 10:19 AM PREPARED FOODS ASSOCIATE [facility] % Lymphocytes 19 % 04/19/2024 10:19 AM PREPARED FOODS ASSOCIATE [facility] % Monocytes 7 % 04/19/2024 10:19 AM PREPARED FOODS ASSOCIATE [facility] % Eosinophils 0 % 04/19/2024 10:19 AM PREPARED FOODS ASSOCIATE [facility] % Basophils 1 % 04/19/2024 10:19 AM PREPARED FOODS ASSOCIATE [facility] % Immature Granulocytes 0 % 04/19/2024 10:19 AM PREPARED FOODS ASSOCIATE [facility] NRBCs per 100 WBC 0 <1 /100 024 10:19 AM PREPARED FOODS ASSOCIATE [facility] Absolute Neutrophils 6.3 1.6 - 8.3 10e3/uL 04/19/2024 10:19 AM PREPARED FOODS ASSOCIATE [facility] Absolute Lymphocytes 1.7 0.8 - 5.3 10e3/uL 04/19/2024 10:19 AM PREPARED FOODS ASSOCIATE [facility] Absolute Monocytes 0.6 0.0 - 1.3 10e3/uL 04/19/2024 10:19 AM PREPARED FOODS ASSOCIATE [facility] Absolute Eosinophils 0.0 0.0 - 0.7 10e3/uL 04/19/2024 10:19 AM PREPARED FOODS ASSOCIATE [facility] Absolute Basophils 0.0 0.0 - 0.2 10e3/uL 04/19/2024 10:19 AM PREPARED FOODS ASSOCIATE LABORATORY Absolute Immature Granulocytes 0.0 <=0.4 10e3/uL 04/19/2024 10:19 AM PREPARED FOODS ASSOCIATE [facility] Absolute NRBCs 0.0 10e3/uL 04/19/2024 10:19 AM PREPARED FOODS ASSOCIATE [facility] Blood STRUCTURE OF RIGHT UPPER LIMB / Unknown Venipuncture / Unknown 04/19/2024 10:12 AM PREPARED FOODS ASSOCIATE 04/19/2024 10:16 AM PREPARED FOODS ASSOCIATE Cezar Jhaveri MD LAB - BLOOD ORDERABLES Final Result [facility] Lab [address] Lab (1st floor, no room number) [address] * TSH with free T4 reflex (04/19/2024 10:12 AM PREPARED FOODS ASSOCIATE) TSH 1.84 0.30 - 4.20 uIU/mL 04/19/2024 10:48 AM PREPARED FOODS ASSOCIATE LABORATORY Blood STRUCTURE OF RIGHT UPPER LIMB / Unknown Venipuncture / Unknown 04/19/2024 10:12 AM PREPARED FOODS ASSOCIATE 04/19/2024 10:16 AM PREPARED FOODS ASSOCIATE us Cezar Jhaveri MD LAB - BLOOD ORDERABLES Final Result Performing Organization Address City/[facility]/ZIP Co de Phone Number LABORATORY [facility] Care Lab [address] Lab (1st floor, no room number) [address] * (ABNORMAL) Basic metabolic panel (04/19/2024 10:12 AM PREPARED FOODS ASSOCIATE) Sodium 137 135 - 145 mmol/L 04/19/2024 10:41 AM [facility] Potassium 4.2 3.4 - 5.3 mmol/L 04/19/2024 10:41 AM [facility] Chloride 103 98 - 107 mmol/L 04/19/2024 10:41 AM [facility] Carbon Dioxide (CO2) 21(L) 22 - 29 mmol/L 04/19/2024 10:41 AM [facility] Anion Gap 13 7 - 15 mmol/L 04/19/2024 10:41 AM [facility] Urea Nitrogen 16.7 6.0 - 20.0 mg/dL 04/19/2024 10:41 AM [facility] Creatinine 0.83 0.51 - 0.95 mg/dL 04/19/2024 10:41 AM [facility] GFR Estimate >90 >60 mL/min/1.7 3m2 04/19/2024 10:41 AM [facility] Comment:eGFR calculated usin g 2020 CKD-EPI equation. Calcium 9.4 8.8 - 10.4 mg/dL 04/19/2024 10:41 AM PREPARED FOODS ASSOCIATE [facility] Comment:Reference intervals for this test were updated on 11/27/2023 to reflect our healthy population more accurately. There may be differences in the flagging of prior results with similar values performed with this method. Those prior results can be interpreted in the context of the updated reference intervals. Glucose 104(H) 70 - 99 mg/dL 04/19/2024 10:41 AM PREPARED FOODS ASSOCIATE LABORATORY Blood STRUCTURE OF RIGHT UPPER LIMB / Unknown Venipuncture / Unknown 04/19/2024 10:12 AM PREPARED FOODS ASSOCIATE 04/19/2024 10:16 AM PREPARED FOODS ASSOCIATE us Cezar Jhaveri MD LAB - BLOOD ORDERABLES Final Result [facility] Acute Care Lab [address] Lab (1st floor, no room number) [place] [address] * EKG 12 lead (04/19/2024 8:36 AM PREPARED FOODS ASSOCIATE) Systolic Blood Pressure mmHg RADIOLOGY RESULTS Diastolic Blood Pressure mmHg RADIOLOGY RESULTS Ventricular Rate 84 BPM RAD IOLOGY RESULTS Atrial Rate 84 BPM RADIOLOG Y RESULTS OH Interval 152 ms RADIOLOG Y RESULTS QRS Duration 88 ms RADIOLO GY RESULTS QT 366 ms RADIOLOGY RESULTS QTc 432 ms RADIOLOGY RESULTS P [place] 20 degrees RADIOLOGY RESULTS R AXIS 41 degrees RADIOLOGY RESULTS T [place] 40 degrees RADIOLOGY RESULTS Interpretation ECG Sinus rhythm Low voltage QRS Borderline ECG When compared with ECG of 18-Jun-2021 09:50, No significant change was found Confirmed by - EMERGENCY ROOM, PHYSICIAN ([id number]), commercial production editor SAMAN CRUZ (Charles) on 04/21/2024 7:02:21 AM RADIOLOGY RESULTS 04/19/2024 8:36 AM PREPARED FOODS ASSOCIATE 04/21/2024 7:02 AM PREPARED FOODS ASSOCIATE us Constantine Brown MD ECG ORDERABLES Edited Result - Final RADIOLOGY RESULTS from Last 3 Months Insurance [facility] COMMERCIAL [facility] COMMERCIAL Member Subscriber Plan / Payer (Ef fective 2023-Present) Name:Ely Campbell Relation to Subscriber:Self Name:Ely Campbell Payer ID:[id number] (NAIC) Type:HMO Address: [place] [phone] Care Teams Parts Sales Manager Relationship Specialty Start Date End Date Jennifer Palumbo [facility] [address] [place] [address] PCP - General 09/11/23
--- OUTSIDE RECORDS SUMMARY | 2024-04-21 17:47 | XMS_ITS | Encounter Summary ---
Author Organization [facility] Address [address] [place] [address] Care Team Providers Care Relief Man Name Role Phone Jennifer Palumbo PA-C Primary Care Provider [phone] Reason for Visit * Reason Comments SYNCOPE/NEAR--SYNCOPE--ED HEARTBEAT,IRREGULAR Encounter Details Date Type Department Care Team (Late st Contact Info) Description 04/20/2024 Nurse Triage Careline [address] [place] [id number] Unknown, Physician [address] [place], [place] [address] SYNCOPE/NEAR--SYNCOPE- -ED; HEARTBEAT,IRREGULAR Social History Tobacco Use Types Packs/Day Years [...] as of this encounter Nursing Notes * Mali Diaz RN - 04/20/2024 7:40 AM CST Pt transferred to this RN from receptionist clerk for urgent triage of irregular heart beat concerns. Verified patient identity: Yes by pt. Situation/Background (brief explanation of current symptoms/situation): Pt states that for the past3 days, she has been experiencing a higher than normal heart rate, per her Apple watch, every am. Pt states that she can also feel rapid heart rate pounding in her chest when this occurs. Pt states that rapid heart rate is not irregular or skip beats when present. Pt states that yesterday am, her heart rate was at 210 bpm states that she was evaluated in [facility] yesterday, but states that when she was seen, her heart rate back down to normal and that ER provider had told that there was no clear cause for symptoms at the time of that evaluation. Per EPIC, pt was evaluated one other time in March 2024 at the [place] ER for the same symptoms. No clear cause for tachycardia was found at the ER evaluation either. Pt states that this am, her heart rate this am was as high as 157 bpm. State that pt felt tachycardic symptoms/noted elevated heart rate on Apple watch for 30-60 minutes.States that when she sat down and tried calm herself so that heart rate might come down, it took about 15 minutes for Apple watch to read heart rate WNL. Pt states that she then got up, took the dog outside, then came back in her house and was doing a couple things around her house, when she felt like she was becoming tachycardic again. Pt states she immediately sat back down. States that this time as her heart rate returned to normal, she started feeling very lightheaded. States that for about 30 minutes, she was afraid to stand, thought she would pass out or faint if she did. Pt states that at time time of this triage, she is no longer feeling dizzy or faint. States she is currently able to stand and walk around without concern. States that her Apple watch states that her heart rate is 92 bpm. Pt states she did not have any symptoms of chest pain today or any time prior to today with these symptoms of tachycardia. Denies any concerns of SOB or breathing difficulty at anytime as well. States that she has had no episodes of excessive sweating or having sweat dripping down her face. Pt denies any previous history of tachycardia or any other cardiac concerns in the past. Pt states she is scheduled for bariatric surgery at [facility] on 04/25/[address] Gardiner. Reviewed with patient pertinent medical history (as it related to the call): Yes Reviewed with patient pertinent medications (as they relate to call): N/A Reviewed with patient pertinent allergies (as they relate to call): N/A Reason for Disposition [1] Heart beating very rapidly (e.g., > 140 / minute) AND [2] not present now (Exception: Duringexercise.) Protocols used: Heart Rate and Heartbeat [id number]-QT Evaluation within 4 hours is discussed and recommended for this pt at this time per protocol. Pt is advised that [facility] setting would be appropriate for pt to seek evaluation of symptoms/concerns at this time. Pt is also strongly encouraged to call her bariatric surgeon/clinic tomorrow am to inform this provider about tachycardic episodes and symptoms she's had related to this issue, so that provider can give pt any further recommendations for plan of care (her surgery is scheduled for 04/25/24), Call back as needed and discussed with pt: If any symptoms change or worsen. If any further concerns or questions. Pt verbalizes understanding of information and recommendations given and agrees to/states is comfortable with this plan of care. Denies further needs or questions for the careline at this time. Mali Bourgeois RN 04/20/2024 8:14 AM RTS ANALYST * Sonia Wild - 04/20/2024 7:25 AM CST Verified patient identity using three identifiers: Yes Caller's relationship to patient: Self, Do you have a provider/clinic where you are seen for this? [facility]/[place] Are you calling about a /REEFER ENGINEER related concern? No Symptoms Describe the reason for call/symptoms (include location and duration if applicable): Pt c/o irregular heartbeat (157 Apple Watch), near syncope Plan:Caller transferred directly to CareLine nurse. RTS ANALYST documented in this encounter Plan of Treatment Upcoming Encounters Date Type Department Care Team (Late st Contact Info) Description 04/25/2024 Hospital Encounter [facility] [address] [facility] [place], [place] [id number] Jayme Gardiner MBBS [address] [facility] [address] [place] [address] 06/09/2024 10:00 AM REPORTS ANALYST Appointment Nursing at [address] [address] Scheduled Procedures Name Priority Associated Diagnoses Date/Ti me XI Robotic Laparoscopic Vert ical Sleeve Gastrectomy Morbid obesity with BMI of 40.0-44.9, adult ([facility]) documented as of this encounter Visit Diagnoses Not on filedocumented in this encounter Care Teams Relief Man Relationship Specialty Start Date End Date Jennifer Palumbo PA-C [address] [place] [address] PCP - General Physician Reinsurance Analyst 02/02/22 documented as of this encounter
--- OUTSIDE RECORDS SUMMARY | 2024-04-21 17:47 | XMS_ITS | Encounter Summary ---
Author Organization [employer] Address [address] [place] [address] Care Team Providers Care Laborer Prestressed Concrete Name Role Phone Jennifer Palumbo PA-C Primary Care Provider [phone] Reason for Visit * Reason Comments QUESTIONS, GENERAL Entered automaticall y based on patient selection in [facility]. Encounter Details Date Type Department Care Team (Late st Contact Info) Description 04/21/2024 8:00 AM ELECTRICIAN E-Visit [facility] [address] [place] [address] Jennifer Palumbo PA-C [address] [place] [address] Chief Comp: QUESTIONS, GENERAL Social History Tobacco Use Types Packs/Day Years [...] as of this encounter Nursing Notes * Heavenly Poon RN - 04/21/2024 9:03 AM CST RN followed up with patient she reports following up with a cardiology clinic through [facility] today.Phone visit scheduled with provider tomorrow to further discuss. Heavenly Poon RN 04/21/2024, 9:03 AM TRICIAN documented in this encounter Plan of Treatment Upcoming Encounters Date Type Department Care Team (Late st Contact Info) Description 04/25/2024 Hospital Encounter [facility] [address] [facility] [place], [place] [id number] Jayme Gardiner MBBS [address] [facility] [address] [place] [address] 06/09/2024 10:00 AM ELECTRICIAN Appointment Nursing at [address] [address] Scheduled Procedures Name Priority Associated Diagnoses Date/Ti me XI Robotic Laparoscopic Vert ical Sleeve Gastrectomy Morbid obesity with BMI of 40.0-44.9, adult ([facility]) documented as of this encounter Visit Diagnoses Not on filedocumented in this encounter Care Teams Laborer Prestressed Concrete Relationship Specialty Start Date End Date Jennifer Palumbo PA-C [address] [place] [address] PCP - General Physician Gem Expert 02/02/22 documented as of this encounter
--- OUTSIDE RECORDS SUMMARY | 2024-04-21 17:47 | XMS_ITS | Encounter Summary ---
Author Organization [facility] Address [address], [place] [address] Care Team Providers Care Litigation Docket Manager Name Role Phone Jennifer Palumbo PA-C Primary Care Provider Reason for Visit * Reason Comments PRE-OP EXAM Encounter Details Date Type Department Care Team (Late st Contact Info) Description 04/09/2024 8:10 AM DRUM REEL CUTTER [facility] [address] [place] [address] Jennifer Palumbo PA-C [address] [place] [address] Preop examination (Primary Dx); Morbid [...] Comments Blood Pressure 138/83 04/09/2024 8:03 AM DRUM REEL CUTTER Pulse 74 04/09/2024 8:03 AM DRUM REEL CUTTER Temperature - - Respiratory Rate - - Oxygen Saturation - - Inhaled Oxygen Concentration - - Weight 126.6 kg (279 lb) 04/09/2024 8:03 AM DRUM REEL CUTTER Height 171 cm (5' 7.32) 04/09/2024 8:03 AM DRUM REEL CUTTER Body Mass Index 43.28 04/09/2024 8:03 AM DRUM REEL CUTTER documented in this encounter Patient Instructions * Patient Instructions* Jennifer Palumbo PA-C - 04/09/2024 8:10 AM DRUM REEL CUTTER Follow your individualized medication recommendations as described above. In addition, please stop all kfxr-qrz-winuffh medications including aspirin, ibuprofen (Advil, Motrin), naproxen [...] have adverse reactions to anesthesia and medications. [place] your teeth on the morning of your [...] before your surgery, call the Pre-Op nurse. REEL CUTTER documented in this encounter Progress Notes * Jennifer Palumbo PA-C - 04/09/2024 8:10 AM CST Pre-Operative Assessment 04/09/2024 ET Darwin PreOp Assessment Details Procedure XI Robotic Laparoscopic Vertical Sleeve Gastrectomy Surgeon Jayme Gardiner MBBS and Nieves Pineda PA-C Location [facility] Procedure Date 04/25/2024 Grant Graves is a 34 y.o. old female here for pre-operative evaluation for procedure noted above. Concerns: ER visit recently for 200 bmps on watch, just sitting and relaxing. [place] off and sweaty. About 2 weeks ago, [...] (BMI) of 40.0 to 44.9 in adult ([facility]) 01/10/2024 Obesity, Class II, BMI 35-39.9 ([facility]) 10/23/2023 Abnormal Papanicolaou smear of cervix [...] Confirmed by - EMERGENCY ROOM, PHYSICIAN ([id number]), image editor SAMAN CRUZ ([id number]) on 06/21/2021 6:44:49 [...] (BMI) of 40.0 to 44.9 in adult ([facility]) E66.01 Z68.41 Medication changes are listed [...] described above. In addition, please stop all whpy-lpj-nlvuvxm medications including aspirin, ibuprofen (Advil, Motrin), naproxen [...] have adverse reactions to anesthesia and medications. [place] your teeth on the morning of your [...] by: Jennifer Palumbo PA-C 04/09/2024, 10:56 PM REEL CUTTER documented in this encounter Plan of Treatment Upcoming Encounters Date Type Department Care Team (Late st Contact Info) Description 04/25/2024 Hospital Encounter [facility] Operating Room [address] [place] [address]. [place] [address] Jayme Gardiner MBBS [address] [place] [address] 06/09/2024 10:00 AM DRUM REEL CUTTER Appointment Nursing at [facility] [address] [address] [place] [address] Scheduled Procedures Name Priority Associated Diagnoses Date/Ti me XI Robotic Laparoscopic Vert ical Sleeve Gastrectomy Morbid obesity with BMI of 40.0-44.9, adult (HRC) documented as of this encounter Results * Test (Urine) (04/09/2024 8:52 AM DRUM REEL CUTTER) HCG, Urine Negative Negative 04/09/2024 8:56 AM DRUM REEL CUTTER [facility] Urine Non-blood Collection / Unknown 04/09/2024 8:52 AM DRUM REEL CUTTER 04/09/2024 8:52 AM DRUM REEL CUTTER Jennifer Palumbo PA-C LAB_1 Performing Organization Address [facility]/State/ZIP Co de Phone Number [facility] [address] [place] [phone], [facility] [[email or web address] * (ABNORMAL) BMP (04/09/2024 8:35 AM DRUM REEL CUTTER) Sodium 138 136 - 145 mmol/L 04/09/2024 11:42 AM [facility] Potassium 4.0 3.5 - 5.1 mmol/L 04/09/2024 11:42 AM [facility] Chloride 108 98 - 109 mmol/L 04/09/2024 11:42 AM [facility] CO2 23 20 - 29 mmol/L 04/09/2024 11:42 AM [facility] Anion Gap 7 6 - 16 mmol/L 04/09/2024 11:42 AM [facility] Calcium 9.7 8.4 - 10.4 mg/dL 04/09/2024 11:42 AM [facility] BUN 11 7 - 26 mg/dL 04/09/2024 11:42 AM [facility] Creatinine 0.73 0.55 - 1.02 mg/dL 04/09/2024 11:42 AM [facility] Glucose 104(H) 70 - 100 mg/dL 04/09/2024 11:42 AM [facility] Comment:The given reference range is for the fasting state. Non-fasting reference range for glucose is 70 - 180 mg/dL. GFR, Estimated >60 >60 mL/min/1. 73m2 04/09/2024 11:42 AM DRUM REEL CUTTER [facility] Hours Fasting 0.1 8 - 12 Hours 04/09/2024 11:42 AM [facility] Blood Venipuncture / Unknown 04/09/2024 8:35 AM DRUM REEL CUTTER 04/09/2024 8:35 AM DRUM REEL CUTTER Jennifer Palumbo PA-C LAB_1 Performing Organization Address City/State/[facility] Co de Phone Number [facility] [address] documented in this encounter Visit Diagnoses Diagnosis Morbid obesity with BMI of 40.0-44.9, adult (HRC)- Primary Preop examination- Primary Preoperative examination, unspecified Morbid obesity with body mass index (BMI) of 40.0 to 44.9 in adult (HRC) documented in this encounter Care Teams Litigation Docket Manager Relationship Specialty Start Date End Date Jnenifer Paulmbo PA-C [address] [place] [address] PCP - General Physician Home Health Physical Therapist 02/02/22 documented as of this encounter
--- OUTSIDE RECORDS SUMMARY | 2024-04-21 17:47 | XMS_ITS | Clinical Summary ---
Author Organization [facility] Address [address] [facility] [place] [address] Care Team Providers Care Computer System Specialist Name Role Phone Jennifer Palumbo PA-C Primary Care Provider [phone] Source Comments You are receiving this document as you are listed as the primary care provider,follow-up provider, or the patient has been referred to you for consultation.This is in compliance with the Medicare and[facility] Hospital[facility] EHR Incentive Program,which states Providers who transition their patient to another setting of careor provider of care or refers their patient to another provider of care shouldprovide summary care record for each transition of care or referral. [place] Allergies Active Allergy Reactions Criticality Noted Date Comments Amoxicillin Rash 06/09/2013 Penicillins 08/12/2001 Medications Medication Sig Dispensed Refills Start Date End Date Status cholecalciferol (VITAMIN D3) 1.25 MG (21343 UT) capsule Take 1 Capsule (50,000 Units) by mouth once every week. 12 Capsule 08/24/2023 Active cholecalciferol (VITAMIN D3) 1.25 MG (92775 UT) capsule Take 1 Capsule (50,000 Units) [...] Encounters Date Type Department Care Team Description 04/21/2024 8:00 AM WHITING CAN WORKER E-Visit [facility] [address] [place] [phone] Jennifer Palumbo, PA-C Chief Comp: QUESTIONS, GENERAL 04/21/2024 Telephone [facility] [address] [facility] [address] [place] [address] Roxana Maynard, PA-C Follow-up 04/21/2024 E-Consult [facility] [address], [address] [place], [place] [id number] Belen Yanez MD 04/20/2024 Nurse Triage [facility] [address] [place], [place] [address] Unknown, Physician SYNCOPE/NEAR--SYNCOP E--ED; HEARTBEAT,IRREGULAR 04/19/2024 Notes/Orders [facility] [address] [place] [address] Jennifer Palumbo PA-C Heart palpitations (Primary Dx); Tachycardia 04/18/2024 Telephone [facility] [address] [facility] [address] [place] [address] Julio Cesar Gao RN Careplan: General 2024 Notes/Orders [facility] [address] [address] Letitia Isaac 04/14/2024 8:00 AM WHITING CAN WORKER Telemedicine [facility] [address] [address] Sierra Palm RDN, LD Morbid obesity with BMI of 40.0-44.9, adult (HRC) (Primary Dx) 04/09/2024 8:30 AM WHITING CAN WORKER Lab Visit Laboratory at [address] [address] Preop examination 04/09/2024 8:10 AM WHITING CAN WORKER Pre-Op Visit [facility] [address] [place] [phone] Jennifer Palumbo, SALLY Preop examination (Primary Dx); Morbid obesity with body mass index (BMI) of 40.0 to 44.9 in adult (HRC) 03/19/2024 8:00 AM WHITING CAN WORKER Nursing Visit Nursing at [address] [phone] Surveillance of contraceptive injection (Primary Dx) 02/05/2024 Notes/Orders [facility] [place] [address] [place] [address] [address] Letitia Isaac 02/04/2024 2:40 PM CDT Office Visit [facility] [place] [address] [place] [address] [address] Jayme Gardiner MBBS Morbid obesity with BMI of 40.0-44.9, adult (HRC) (Primary Dx) 02/01/2024 10:00 AM CDT Telemedicine [facility] [address] [place] [address] Meenakshi León RN Morbid obesity with body mass index (BMI) of 40.0 to 44.9 in adult (HRC) (Primary Dx) 02/01/2024 E-Visit [facility] [address] [place] [address] Mychart, Generic Provider from Last 3 Months Immunizations Name Administration Dates Next Due DTP 1988,1988,1988 OPV, Trivalent (Orimune or tOPV) 1988,12/1988 Pfizer Monovalent 12+ Purple Top 05/02/2021,0507/2020,08/16/2020 Tdap 04/23/2008 Family History Medical History Relation [...] Comments Blood Pressure 138/83 04/09/2024 8:03 AM WHITING CAN WORKER Pulse 74 04/09/2024 8:03 AM WHITING CAN WORKER Temperature 36.7 C (98.1 F) 08/22/2023 8:00 AM CDT Respiratory Rate 18 09/04/2022 8:26 AM CDT Oxygen Saturation 99% 06/12/2022 10:02 AM WHITING CAN WORKER Inhaled Oxygen Concentration - - Weight 122.5 kg (270 lb) 04/13/2024 8:18 PM WHITING CAN WORKER Height 170.2 cm (5' 7) 04/13/2024 8:18 PM WHITING CAN WORKER Body Mass Index 42.29 04/13/2024 8:18 PM WHITING CAN WORKER Plan of Treatment Upcoming Encounters Date Type Department Care Team (Late st Contact Info) Description 04/25/2024 Hospital Encounter Confucianism Operating Room [address] [facility] [place], [place] [phone] Jayme Gardiner MBBS [address] [facility] [address] [place] [address] 06/09/2024 10:00 AM WHITING CAN WORKER Appointment Nursing at [address] [address] Scheduled Procedures Name Priority Associated Diagnoses Date/Ti me XI Robotic Laparoscopic Vert ical Sleeve Gastrectomy Morbid obesity with BMI of 40.0-44.9, adult (HRC) Health Maintenance Due Date Last Done Comments HepB (1) 2007 COVID-19 Vaccine ( season) 2024 05/02/2021, 09/13/2020, 08/16/2020 Influenza (#1) 2024 Adult Preventive Visit 05/22/2024 3, 09/20/2009, 04/23/2008 Diabetes Screening- (based on age [...] Comments TEST (URINE) Routine 04/09/2024 8:52 AM WHITING CAN WORKER Preop examination COMPLETE BLOOD COUNT-W/DIFF Routine 04/09/2024 8:35 AM WHITING CAN WORKER Preop examination BASIC METABOLIC PANEL Routine 04/09/2024 8:35 AM WHITING CAN WORKER Preop examination CBC AND DIFFERENTIAL PANEL Routine 04/09/2024 8:35 AM WHITING CAN WORKER Preop examination HGB A1C Routine 08/20/2023 7:41 AM CDT Screening for diabetes mellitus HIV 1/2 AG/AB 4TH GEN Routine 05/22/2022 10:11 AM WHITING CAN WORKER Screening for HIV (human immunodeficiency virus) HEPATITIS C ANTIBODY, WITH REFLEX Routine 05/22/2022 10:11 AM WHITING CAN WORKER Encounter for HCV screening test for low risk patient PAP TEST Routine 05/22/2022 10:07 AM WHITING CAN WORKER Screening for malignant neoplasm of cervix from Last 3 Months or Most Recently Relevant to Health Maintenance Results * Test (Urine) (04/09/2024 8:52 AM WHITING CAN WORKER) HCG, Urine Negative Negative 04/09/2024 8:56 AM WHITING CAN WORKER [employer] SUSAN Urine Non-blood Collection / Unknown 04/09/2024 8:52 AM WHITING CAN WORKER 04/09/2024 8:52 AM WHITING CAN WORKER Jennifer Palumbo PA-C LAB_1 [facility] [address] [place] [address], [facility] * Complete Blood Count-W/Diff (04/09/2024 8:35 AM WHITING CAN WORKER) WBC 7.4 3.5 - 10.5 x10(9)/L 04/09/2024 8:57 AM [facility] RBC 4.88 3.90 - 5.03 x10(12)/L 04/09/2024 8:57 AM [facility] Hemoglobin 14.2 12.0 - 15.5 g/dL 04/09/2024 8:57 AM [facility] HCT 42.0 34.9 - 44.5 % 04/09/2024 8:57 AM [facility] MCV 86.1 80.0 - 100.0 fL 04/09/2024 8:57 AM [facility] MCH 29.1 27.6 - 33.3 pg 04/09/2024 8:57 AM [facility] MCHC 33.8 31.5 - 35.2 g/dL 04/09/2024 8:57 AM [facility] RDW 12.3 11.9 - 15.5 % 04/09/2024 8:57 AM [facility] Platelets 266 150 - 450 x10(9)/L 04/09/2024 8:57 AM [facility] Neutrophil Absolute 4.2 1.7 - 7.0 10(9)/L 04/09/2024 8:57 AM [facility] Lymphocyte Absolute 2.4 1.0 - 4.8 10(9)/L 04/09/2024 8:57 AM [facility] Monocyte Absolute 0.6 0.2 - 0.9 10(9)/L 04/09/2024 8:57 AM [facility] Eosinophil Absolute 0.1 0.0 - 0.5 10(9)/L 04/09/2024 8:57 AM [facility] Basophil Absolute 0.0 0.0 - 0.3 10(9)/L 04/09/2024 8:57 AM [facility] Immature Granulocyte % 0.1 0.0 - 0.5 % 04/09/2024 8:57 AM [facility] Blood Venipuncture / Unknown 04/09/2024 8:35 AM WHITING CAN WORKER 04/09/2024 8:35 AM WHITING CAN WORKER Jennifer Palumbo PA-C LAB_1 [facility] [address] [place] [phone], [facility] * (ABNORMAL) BMP (04/09/2024 8:35 AM WHITING CAN WORKER) Sodium 138 136 - 145 mmol/L 04/09/2024 11:42 AM [email or web address] Potassium 4.0 3.5 - 5.1 mmol/L 04/09/2024 11:42 AM [facility] Chloride 108 98 - 109 mmol/L 04/09/2024 11:42 AM [facility] CO2 23 20 - 29 mmol/L 04/09/2024 11:42 AM [facility] Anion Gap 7 6 - 16 mmol/L 04/09/2024 11:42 AM [facility] Calcium 9.7 8.4 - 10.4 mg/dL 04/09/2024 11:42 AM [facility] BUN 11 7 - 26 mg/dL 04/09/2024 11:42 AM [facility] Creatinine 0.73 0.55 - 1.02 mg/dL 04/09/2024 11:42 AM [facility] Glucose 104(H) 70 - 100 mg/dL 04/09/2024 11:42 AM [facility] Comment:The given reference range is for the fasting state. Non-fasting reference range for glucose is 70 - 180 mg/dL. GFR, Estimated >60 >60 mL/min/1. 73m2 04/09/2024 11:42 AM [facility] Hours Fasting 0.1 8 - 12 Hours 04/09/2024 11:42 AM [facility] Blood Venipuncture / Unknown 04/09/2024 8:35 AM WHITING CAN WORKER 04/09/2024 8:35 AM WHITING CAN WORKER Jennifer Palumbo PA-C LAB_1 [facility] [address] * Hgb A1c (08/20/2023 7:41 AM CDT) [facility] Hemoglobin A1C 4.8 <=5.6 % 08/20/2023 11:57 AM CDT [facility] Estimated Average Glucose (Calc) 91 < 117 mg/dL 08/20/2023 11:57 AM CDT [facility] Comment:Estimated average gl ucose (eAG) converts A1c into glucose units (mg/dL) and estimates average glucose over the past approximately 3 months. The eAG reference interval (<117 mg/dL) corresponds to an A1c of <5.7%. Blood Venipuncture / Unknown 08/20/2023 7:41 AM CDT 08/20/2023 7:41 AM CDT Shruthi Araiza PA-C LAB_1 Performing Organization Address [facility] de Phone Number [facility] [address] * HIV 1/2 Ag/Ab 4th Generation (05/22/2022 10:11 AM WHITING CAN WORKER) [facility] HIV 1/2 Antigen/Anti body (4th generation) Negative (Non Reactive) Negative (Non Reactive) 05/22/2022 3:36 PM WHITING CAN WORKER [facility] Comment:HIV-1 p24 Antigen an d HIV-1/HIV-2 Antibody not detected Blood Venipuncture / Unknown 05/22/2022 10:11 AM WHITING CAN WORKER 05/22/2022 10:11 AM WHITING CAN WORKER Jennifer Palumbo PA-C LAB_1 Performing Organization Address [facility] Co de Phone Number [facility] [address] [phone] * Hepatitis C Antibody, with Reflex (05/22/2022 10:11 AM WHITING CAN WORKER) Hepatitis C Antibody Negative (Non Reactive) Negative (Non Reactive) 05/22/2022 3:31 PM WHITING CAN WORKER [facility] Comment:Antibodies to HCV no t detected. Does not exclude the possiblity of exposure to HCV. Blood Venipuncture / Unknown 05/22/2022 10:11 AM WHITING CAN WORKER 05/22/2022 10:11 AM WHITING CAN WORKER Jennifer Palumbo PA-C LAB_1 [facility] [address] [phone] * PAP Test (05/22/2022 10:07 AM WHITING CAN WORKER) Case Report Pap Case: [id number] Authorizing Provider: Jennifer Palumbo PA-C Collected: 05/22/2022 1007 Ordering Location: [facility] Received: 05/22/2022 1041 Practice First Screen: Ashleigh Anderson Specimen: Pap Test, Routine, Cervix/Endocervix 06/02/2022 9:50 AM [facility] Pap Specimen Adequacy Satisfactory for evaluation, endocervical/deng sformation zone component absent. 06/02/2022 9:50 AM [facility] Pap Interpretation (NILM) Negative for intraepithelial lesion or malignancy. 06/02/2022 9:50 AM [facility] Pap Disclaimer The Pap test is a screening test designed to aid in the detection of cervical cancer and its precursor lesions. It is not a diagnostic procedure and should not be used as the sole means of detecting cervical cancer. Both false-positive and false-negative results may occur. 06/02/2022 9:50 AM [facility] Gross Description The specimen is received in SurePath fixative and properly labeled. 1 Pap-stained SurePath slide is prepared. 06/02/2022 9:50 AM [facility] Embedded Images 9:50 AM [facility] Other Specimen Type ENTIRE ENDOCERVIX / Unknown 05/22/2022 10:07 AM WHITING CAN WORKER 05/22/2022 10:41 AM WHITING CAN WORKER Comment:LMP: No LMP recorded . Jennifer Palumbo PA-C LAB PATHOLOGY [address] [address], [facility] [phone] from Last 3 Months or Most Recently Relevant to Health Maintenance Care Teams Computer System Specialist Relationship Specialty Start Date End Date Jennifer Palumbo PA-C [address] [place] [address] PCP - General Physician Ventilation Equipment Tender 02/02/22
--- OUTSIDE RECORDS SUMMARY | 2024-04-21 17:47 | XMS_ITS | Encounter Summary ---
Author Organization [facility] Address [address] [place] [address] Care Team Providers Care Safety Spec Name Role Phone Jennifer Palumbo PA-C Primary Care Provider [phone] Encounter Details Date Type Department Care Team (Late st Contact Info) Description 02/01/2024 E-Visit [facility] [address] [facility] [address] [place], [place] [phone] [place] [address] Social History Tobacco Use Types Packs/Day Years [...] st Contact Info) Description 04/25/2024 Hospital Encounter Baptism Operating Room [address] [facility] [place] [address] Jayme Gardiner MBBS [address] [facility] [address] [place] [address] 06/09/2024 10:00 AM COOK MANAGER Appointment Nursing at [address] [phone] Scheduled Procedures Name Priority Associated Diagnoses Date/Ti me XI Robotic Laparoscopic Vert ical Sleeve Gastrectomy Morbid obesity with BMI of 40.0-44.9, adult (HRC) documented as of this encounter Visit Diagnoses Not on filedocumented in this encounter Care Teams Safety Spec Relationship Specialty Start Date End Date Jennifer Palumbo PA-C [address] [place], [place] [phone] PCP - General Physician Timber Watchman 02/02/22 documented as of this encounter
--- OUTSIDE RECORDS SUMMARY | 2024-04-21 17:47 | XMS_ITS | Clinical Summary ---
Author Organization [facility] Address [address] [place] [address] Care Team Providers Care Ocean Export Coordinator Name Role Phone Jennifer Palumbo Primary Care Provider [phone] Allergies Active Allergy Reactions Criticality Noted Date [...] for muscle spasms 30 tablet 4 Active Encounters Date Type Department Care Team Description 04/19/2024 8:42 AM MEDICAL FIELD REPRESENTATIVE - 04/19/2024 11:04 AM [facility] Emergency [facility] Emergency Dept [address] [place] [phone] Cezar Jhaveri MD Palpitations Discharge Disposition: Home or Self Care 04/19/2024 Travel from Last 3 Months Social History Tobacco Use Types Packs/Day Years Used Date Smoking Tobacco: Never Assessed Adolescent Education Answer Date Record ed Getting School Help Needed Not on file 02/03 Comments No Sex and Gender Information Value Date Recorded Sex Assigned at Not on file Legal Sex Female 6:11 PM MEDICAL FIELD REPRESENTATIVE Gender Identity Not on file Sexual Orientation Not on file Last Filed Vital Signs Vital Sign Reading Time Taken Comments Blood Pressure 118/78 04/19/2024 10:45 AM MEDICAL FIELD REPRESENTATIVE Pulse 81 04/19/2024 11:00 AM MEDICAL FIELD REPRESENTATIVE Temperature 36.3 C (97.4 F) 04/19/2024 8:42 AM MEDICAL FIELD REPRESENTATIVE Respiratory Rate 28 04/19/2024 11:00 AM MEDICAL FIELD REPRESENTATIVE Oxygen Saturation 98% 04/19/2024 11:00 AM MEDICAL FIELD REPRESENTATIVE Inhaled Oxygen Concentration - - Weight 125.9 kg (277 lb 9 oz) 04/19/2024 8:42 AM MEDICAL FIELD REPRESENTATIVE Height 170.2 cm (5' 7) 04/19/2024 8:42 AM MEDICAL FIELD REPRESENTATIVE Body Mass Index 43.47 04/19/2024 8:42 AM MEDICAL FIELD REPRESENTATIVE Plan of Treatment Health Maintenance Due Date Last Done Comments ADVANCE CARE PLANNING 1988 ANNUAL REVIEW OF HM ORDERS 1988 HIV SCREENING 2003 HEPATITIS C SCREENING 2006 YEARLY PREVENTIVE VISIT 09/20/2010 09/20/2009, 04/23 DTAP/TDAP/TD IMMUNIZATION (7 - Td or Tdap) 04/23/2018 04/23/2008, 08/25/1993, 11/12/1989, Additional history exists PHQ-2 (once per calendar year) 2023 COVID-19 Vaccine ( season) 2024 05/02/2021, 09/13/2020, 08/16/2020 INFLUENZA VACCINE (#1) 2024 PAP 05/22/2025 05/22/2022 GLUCOSE 04/19/2027 04/19/2024, 02/0 09/2021, 06/15/2021 RSV VACCINE (1 - 1-dose 75+ series) 2063 HEPATITIS B IMMUNIZATION Completed 001, 12/24/2000, 11/01/2000 HPV IMMUNIZATION Aged Out No longer e ligible based on patient's age to complete this topic MENINGITIS IMMUNIZATION Aged Out No l onger eligible based on patient's age to complete this topic Pneumococcal Vaccine: Pediatrics (0 to 5 Years) and At-Risk Patients (6 to 64 Years) Aged Out No longer eligible based on patient's age to complete this topic RSV MONOCLONAL ANTIBODY Aged Out No l onger eligible based on patient's age to complete this topic Procedures Procedure Name Priority Date/Time Associated Diagnosis Comments CBC WITH PLATELETS & DIFFERENTIAL STAT 04/19/2024 10:12 AM MEDICAL FIELD REPRESENTATIVE CBC WITH PLATELETS AND DIFFERENTIAL STAT 04/19/2024 10:12 AM MEDICAL FIELD REPRESENTATIVE TSH WITH FREE T4 REFLEX STAT 04/19/2024 10:12 AM MEDICAL FIELD REPRESENTATIVE BASIC METABOLIC PANEL STAT 04/19/2024 10:12 AM MEDICAL FIELD REPRESENTATIVE EKG 12-LEAD, TRACING ONLY STAT 04/19/2024 8:36 AM MEDICAL FIELD REPRESENTATIVE from Last 3 Months Results * CBC with platelets and differential (04/19/2024 10:12 AM MEDICAL FIELD REPRESENTATIVE) WBC Count 8.7 4.0 - 11.0 10e3/uL 04/19/2024 10:19 AM MEDICAL FIELD REPRESENTATIVE [facility] RBC Count 4.80 3.80 - 5.20 10e6/uL 04/19/2024 10:19 AM MEDICAL FIELD REPRESENTATIVE [facility] Hemoglobin 13.9 11.7 - 15.7 g/dL 04/19/2024 10:19 AM MEDICAL FIELD REPRESENTATIVE [facility] Hematocrit 40.7 35.0 - 47.0 % 04/19/2024 10:19 AM MEDICAL FIELD REPRESENTATIVE [facility] MCV 85 78 - 100 fL 04/19/2024 10:19 AM MEDICAL FIELD REPRESENTATIVE [facility] MCH 29.0 26.5 - 33.0 pg 04/19/2024 10:19 AM MEDICAL FIELD REPRESENTATIVE [facility] MCHC 34.2 31.5 - 36.5 g/dL 04/19/2024 10:19 AM MEDICAL FIELD REPRESENTATIVE [facility] RDW 12.0 10.0 - 15.0 % 04/19/2024 10:19 AM MEDICAL FIELD REPRESENTATIVE [facility] Platelet Count 229 150 - 450 10e3/uL 04/19/2024 10:19 AM MEDICAL FIELD REPRESENTATIVE [facility] % Neutrophils 73 % 04/19/2024 10:19 AM MEDICAL FIELD REPRESENTATIVE [facility] % Lymphocytes 19 % 04/19/2024 10:19 AM MEDICAL FIELD REPRESENTATIVE [facility] % Monocytes 7 % 04/19/2024 10:19 AM MEDICAL FIELD REPRESENTATIVE [facility] % Eosinophils 0 % 04/19/2024 10:19 AM MEDICAL FIELD REPRESENTATIVE [facility] % Basophils 1 % 04/19/2024 10:19 AM MEDICAL FIELD REPRESENTATIVE [facility] % Immature Granulocytes 0 % 04/19/2024 10:19 AM MEDICAL FIELD REPRESENTATIVE [facility] NRBCs per 100 WBC 0 <1 /100 024 10:19 AM MEDICAL FIELD REPRESENTATIVE [facility] Absolute Neutrophils 6.3 1.6 - 8.3 10e3/uL 04/19/2024 10:19 AM MEDICAL FIELD REPRESENTATIVE [facility] Absolute Lymphocytes 1.7 0.8 - 5.3 10e3/uL 04/19/2024 10:19 AM MEDICAL FIELD REPRESENTATIVE [facility] Absolute Monocytes 0.6 0.0 - 1.3 10e3/uL 04/19/2024 10:19 AM MEDICAL FIELD REPRESENTATIVE [facility] Absolute Eosinophils 0.0 0.0 - 0.7 10e3/uL 04/19/2024 10:19 AM MEDICAL FIELD REPRESENTATIVE [facility] Absolute Basophils 0.0 0.0 - 0.2 10e3/uL 04/19/2024 10:19 AM MEDICAL FIELD REPRESENTATIVE [facility] Absolute Immature Granulocytes 0.0 <=0.4 10e3/uL 04/19/2024 10:19 AM MEDICAL FIELD REPRESENTATIVE [facility] Absolute NRBCs 0.0 10e3/uL 04/19/2024 10:19 AM MEDICAL FIELD REPRESENTATIVE [facility] Blood STRUCTURE OF RIGHT UPPER LIMB / Unknown Venipuncture / Unknown 04/19/2024 10:12 AM MEDICAL FIELD REPRESENTATIVE 04/19/2024 10:16 AM MEDICAL FIELD REPRESENTATIVE us Cezar Jhaveri MD LAB - BLOOD ORDERABLES Final Result [facility] Acute Care Lab [address] Lab (1st floor, no room number) [place] [address], [facility] * TSH with free T4 reflex (04/19/2024 10:12 AM MEDICAL FIELD REPRESENTATIVE) TSH 1.84 0.30 - 4.20 uIU/mL 04/19/2024 10:48 AM MEDICAL FIELD REPRESENTATIVE [facility] Blood STRUCTURE OF RIGHT UPPER LIMB / Unknown Venipuncture / Unknown 04/19/2024 10:12 AM MEDICAL FIELD REPRESENTATIVE 04/19/2024 10:16 AM MEDICAL FIELD REPRESENTATIVE us Cezar Jhaveri MD LAB - BLOOD ORDERABLES Final Result LABORATORY [facility] Acute Care Lab [address] Lab (1st floor, no room number) [place] [address], [facility] * (ABNORMAL) Basic metabolic panel (04/19/2024 10:12 AM MEDICAL FIELD REPRESENTATIVE) Sodium 137 135 - 145 mmol/L 04/19/2024 10:41 AM [facility] Potassium 4.2 3.4 - 5.3 mmol/L 04/19/2024 10:41 AM [facility] Chloride 103 98 - 107 mmol/L 04/19/2024 10:41 AM [facility] Carbon Dioxide (CO2) 21(L) 22 - 29 mmol/L 04/19/2024 10:41 AM [facility] Anion Gap 13 7 - 15 mmol/L 04/19/2024 10:41 AM [facility] Urea Nitrogen 16.7 6.0 - 20.0 mg/dL 04/19/2024 10:41 AM [facility] Creatinine 0.83 0.51 - 0.95 mg/dL 04/19/2024 10:41 AM [facility] GFR Estimate >90 >60 mL/min/1.7 3m2 04/19/2024 10:41 AM [facility] Comment:eGFR calculated usin g 2020 CKD-EPI equation. Calcium 9.4 8.8 - 10.4 mg/dL 04/19/2024 10:41 AM [facility] Comment:Reference intervals for this test were updated on 11/27/2023 to reflect our healthy population more accurately. There may be differences in the flagging of prior results with similar values performed with this method. Those prior results can be interpreted in the context of the updated reference intervals. Glucose 104(H) 70 - 99 mg/dL 04/19/2024 10:41 AM [facility] Blood STRUCTURE OF RIGHT UPPER LIMB / Unknown Venipuncture / Unknown 04/19/2024 10:12 AM MEDICAL FIELD REPRESENTATIVE 04/19/2024 10:16 AM MEDICAL FIELD REPRESENTATIVE Cezar Jhaveri MD LAB - BLOOD ORDERABLES Final Result [facility] Acute Care Lab [address] Lab (1st floor, no room number) [place] [address] * EKG 12 lead (04/19/2024 8:36 AM MEDICAL FIELD REPRESENTATIVE) Systolic Blood Pressure mmHg RADIOLOGY RESULTS Diastolic Blood Pressure mmHg RADIOLOGY RESULTS Ventricular Rate 84 BPM RAD IOLOGY RESULTS Atrial Rate 84 BPM RADIOLOG Y RESULTS ID Interval 152 ms RADIOLOG Y RESULTS QRS Duration 88 ms RADIOLO GY RESULTS QT 366 ms RADIOLOGY RESULTS QTc 432 ms RADIOLOGY RESULTS P Osborn 20 degrees RADIOLOGY RESULTS R AXIS 41 degrees RADIOLOGY RESULTS T Osborn 40 degrees RADIOLOGY RESULTS Interpretation ECG Sinus rhythm Low voltage QRS Borderline ECG When compared with ECG of 18-Jun-2021 09:50, No significant change was found Confirmed by - EMERGENCY ROOM, PHYSICIAN ([id number]), restaurant expeditor SAMAN CRUZ ([id number]) on 04/21/2024 7:02:21 AM RADIOLOGY RESULTS 04/19/2024 8:36 AM MEDICAL FIELD REPRESENTATIVE 04/21/2024 7:02 AM MEDICAL FIELD REPRESENTATIVE us Constantine Brown MD ECG ORDERABLES Edited Result - Final RADIOLOGY RESULTS from Last 3 Months Insurance [employer] COMMERCIAL [facility] COMMERCIAL Care Teams Ocean Export Coordinator Relationship Specialty Start Date End Date Jennifer Palumbo [facility] [id number] [place] [address] PCP - General 09/11/23
--- OUTSIDE RECORDS SUMMARY | 2024-04-21 17:47 | XMS_ITS | Encounter Summary ---
Author Organization [facility] Address [address] [place] [address] Care Team Providers Care Bindery Library Technical Assistant Name Role Phone Jennifer Palumbo PA-C Primary Care Provider [phone] Encounter Details Date Type Department Care Team (Late st Contact Info) Description 04/09/2024 8:30 AM AUTO TRAVEL COUNSELOR Lab Visit Laboratory at [address] [address] Preop examination Social History Tobacco Use Types [...] st Contact Info) Description 04/25/2024 Hospital Encounter [facility] Operating Room [address] [facility]. [place], [place] [id number] Jayme Gardiner MBBS [address] [facility] [address] [place], [place] [address] 06/09/2024 10:00 AM AUTO TRAVEL COUNSELOR Appointment Nursing at [facility] [address] [place] [address] Scheduled Procedures Name Priority Associated Diagnoses Date/Ti me XI Robotic Laparoscopic Vert ical Sleeve Gastrectomy Morbid obesity with BMI of 40.0-44.9, adult (HRC) documented as of this encounter Procedures Procedure Name Priority Date/Time Associated Diagnosis Comments TEST (URINE) Routine 04/09/2024 8:52 AM AUTO TRAVEL COUNSELOR Preop examination CBC AND DIFFERENTIAL PANEL Routine 04/09/2024 8:35 AM AUTO TRAVEL COUNSELOR Preop examination COMPLETE BLOOD COUNT-W/DIFF Routine 04/09/2024 8:35 AM AUTO TRAVEL COUNSELOR Preop examination BASIC METABOLIC PANEL Routine 04/09/2024 8:35 AM AUTO TRAVEL COUNSELOR Preop examination documented in this encounter Results * Test (Urine) (04/09/2024 8:52 AM AUTO TRAVEL COUNSELOR) HCG, Urine Negative Negative 04/09/2024 8:56 AM AUTO TRAVEL COUNSELOR [facility] Urine Non-blood Collection / Unknown 04/09/2024 8:52 AM AUTO TRAVEL COUNSELOR 04/09/2024 8:52 AM AUTO TRAVEL COUNSELOR Jennifer Palumbo PA-C LAB_1 [facility] [address] [place] [address] * Complete Blood Count-W/Diff (04/09/2024 8:35 AM AUTO TRAVEL COUNSELOR) WBC 7.4 3.5 - 10.5 x10(9)/L 04/09/2024 8:57 AM AUTO TRAVEL COUNSELOR [facility] RBC 4.88 3.90 - 5.03 x10(12)/L 04/09/2024 8:57 AM AUTO TRAVEL COUNSELOR [facility] Hemoglobin 14.2 12.0 - 15.5 g/dL 04/09/2024 8:57 AM [facility] HCT 42.0 34.9 - 44.5 % 04/09/2024 8:57 AM [facility] MCV 86.1 80.0 - 100.0 fL 04/09/2024 8:57 AM [facility] MCH 29.1 27.6 - 33.3 pg 04/09/2024 8:57 AM [facility] MCHC 33.8 31.5 - 35.2 g/dL 04/09/2024 8:57 AM [facility] RDW 12.3 11.9 - 15.5 % 04/09/2024 8:57 AM [facility] Platelets 266 150 - 450 x10(9)/L 04/09/2024 8:57 AM [facility] Neutrophil Absolute 4.2 1.7 - 7.0 10(9)/L 04/09/2024 8:57 AM [facility] Lymphocyte Absolute 2.4 1.0 - 4.8 10(9)/L 04/09/2024 8:57 AM [facility] Monocyte Absolute 0.6 0.2 - 0.9 10(9)/L 04/09/2024 8:57 AM [facility] Eosinophil Absolute 0.1 0.0 - 0.5 10(9)/L 04/09/2024 8:57 AM [facility] Basophil Absolute 0.0 0.0 - 0.3 10(9)/L 04/09/2024 8:57 AM [facility] Immature Granulocyte % 0.1 0.0 - 0.5 % 04/09/2024 8:57 AM [facility] Blood Venipuncture / Unknown 04/09/2024 8:35 AM AUTO TRAVEL COUNSELOR 04/09/2024 8:35 AM AUTO TRAVEL COUNSELOR Jennifer Palumbo PA-C LAB_1 [facility] [address] [place] [address], [facility] * (ABNORMAL) BMP (04/09/2024 8:35 AM AUTO TRAVEL COUNSELOR) Sodium 138 136 - 145 mmol/L 04/09/2024 11:42 AM [facility] Potassium 4.0 3.5 - 5.1 mmol/L 04/09/2024 11:42 AM [facility] Chloride 108 98 - 109 mmol/L 04/09/2024 11:42 AM [facility] CO2 23 20 - 29 mmol/L 04/09/2024 11:42 AM [facility] Anion Gap 7 6 - 16 mmol/L 04/09/2024 11:42 AM [facility] Calcium 9.7 8.4 - 10.4 mg/dL 04/09/2024 11:42 AM [facility] BUN 11 7 - 26 mg/dL 04/09/2024 11:42 AM [facility] Creatinine 0.73 0.55 - 1.02 mg/dL 04/09/2024 11:42 AM [facility] Glucose 104(H) 70 - 100 mg/dL 04/09/2024 11:42 AM [facility] Comment:The given reference range is for the fasting state. Non-fasting reference range for glucose is 70 - 180 mg/dL. GFR, Estimated >60 >60 mL/min/1. 73m2 04/09/2024 11:42 AM [facility] Hours Fasting 0.1 8 - 12 Hours 04/09/2024 11:42 AM [facility] Blood Venipuncture / Unknown 04/09/2024 8:35 AM AUTO TRAVEL COUNSELOR 04/09/2024 8:35 AM AUTO TRAVEL COUNSELOR Jennifer Palumbo PA-C LAB_1 Performing Organization Address City/State/[facility] Co de Phone Number [facility] [address] documented in this encounter Visit Diagnoses Diagnosis Morbid obesity with BMI of 40.0-44.9, adult (HRC)- Primary Preop examination Preoperative examination, unspecified documented in this encounter Care Teams Bindery Library Technical Assistant Relationship Specialty Start Date End Date Jennifer Palumbo PA-C [address] [place] [address] PCP - General Physician Blanket Cutter Hand 02/02/22 documented as of this encounter
--- OUTSIDE RECORDS SUMMARY | 2024-04-21 17:47 | XMS_ITS | Encounter Summary ---
Author Organization [facility] Address [address] [place] [address] Care Team Providers Care Nut Sheller Machine Operator Name Role Phone Jennifer Palumbo Primary Care Provider [phone] Encounter Details Date Type Department Care Team (Latest Contact Info) Description 04/19/2024 Travel Social History Tobacco Use Types Packs/Day Years Used Date Smoking Tobacco: Never Assessed Adolescent Education Answer Date Record ed Getting School Help Needed Not on file 02/03 Comments No Sex and Gender Information Value Date Recorded Sex Assigned at Not on file Legal Sex Female 6:11 PM HISTOLOGIST Gender Identity Not on file Sexual Orientation Not on file documented as of this encounter Plan of Treatment Not on file documented as of this encounter Visit Diagnoses Not on filedocumented in this encounter Care Teams Nut Sheller Machine Operator Relationship Specialty Start Date End Date Jennifer Palumbo [facility] [id number] [place] [address] PCP - General 09/11/23 documented as of this encounter
--- OUTSIDE RECORDS SUMMARY | 2024-04-21 17:47 | XMS_ITS | Encounter Summary ---
Author Organization [facility] Address [address] [place] [address] Care Team Providers Care Infantry Weapons Officer Name Role Phone Jennifer Palumbo PA-C Primary Care Provider [phone] Encounter Details Date Type Department Care Team (Late st Contact Info) Description 02/05/2024 Notes/Orders [facility] [address] [facility] [address] [place], [place] [address] Letitia Isaac Social History Tobacco Use Types [...] st Contact Info) Description 04/25/2024 Hospital Encounter Shinto Operating Room [address] [facility]. [place], [place] [address] Jayme Gardiner MBBS [address] [facility] [address] [place], [place] [address] 06/09/2024 10:00 AM CHUCK WAGON COOK Appointment Nursing at [address] [address] Scheduled Procedures Name Priority Associated Diagnoses Date/Ti me XI Robotic Laparoscopic Vert ical Sleeve Gastrectomy Morbid obesity with BMI of 40.0-44.9, adult (HRC) documented as of this encounter Visit Diagnoses Not on filedocumented in this encounter Care Teams Infantry Weapons Officer Relationship Specialty Start Date End Date Jennifer Palumbo PA-C [address] [place] [address] PCP - General Physician Database Manager 02/02/22 documented as of this encounter
--- OUTSIDE RECORDS SUMMARY | 2024-04-21 17:47 | XMS_ITS | Encounter Summary ---
Author Organization [facility] Address [address] [address] Care Team Providers Care Research Program Internship Name Role Phone Jennifer Palumbo PA-C Primary Care Provider [phone] Encounter Details Date Type Department Care Team (Late st Contact Info) Description 04/21/2024 E-Consult [facility] [address] [place] [address] Belen Yanez MD [address] [place] [address] Social History Tobacco Use Types Packs/Day Years [...] st Contact Info) Description 04/25/2024 Hospital Encounter Scientology Operating Room [address] [facility] [place], [place] [address] Jayme Gardiner MBBS [address] [facility] [address] [place] [address] 06/09/2024 10:[address] [place] Appointment Nursing at [address] [phone] Scheduled Procedures Name Priority Associated Diagnoses Date/Ti me XI Robotic Laparoscopic Vert ical Sleeve Gastrectomy Morbid obesity with BMI of 40.0-44.9, adult (HRC) documented as of this encounter Visit Diagnoses Not on filedocumented in this encounter Care Teams Research Program Internship Relationship Specialty Start Date End Date Jennifer Palumbo, PALichaC [address] [place], [place] [phone] PCP - General Physician Watch Crystal Molder 02/02/22 documented as of this encounter
--- OUTSIDE RECORDS SUMMARY | 2024-04-21 17:47 | XMS_ITS | Encounter Summary ---
Author Organization [facility] Address [address], [place] [address] Care Team Providers Care Parts Facilitator Name Role Phone Jennifer Palumbo PA-C Primary Care Provider [phone] Reason for Referral * (Routine) - New Request Specialty Diagnoses / Procedures Referred By Marie webb Referred To Contact Diagnoses Heart palpitations Tachycardia Procedures E-Consult to Cardiology Jennifer Palumbo PA-C [address] [place] [address] Referral ID Status Reason Start Date Expiration Date V isits Requested Visits Authorized [id number] New Request 04/19/2024 07/19/2025 1 1 E INSTALLER FOREMAN Encounter Details Date Type Department Care Team (Late st Contact Info) Description 04/19/2024 Notes/Orders [facility] [address] [place] [phone] Jennifer Palumbo PA-C [address] [place] [address] Heart palpitations (Primary Dx); Tachycardia Social History Tobacco Use Types Packs/Day Years [...] 04/25/2024 Hospital Encounter [facility] Operating Room [address] [facility]. [place], [place] [address] Jayme Gardiner MBBS [address] [facility] [address] [place], [place] [phone] 06/09/2024 10:00 AM FENCE INSTALLER FOREMAN Appointment Nursing at [address] [address] Scheduled Procedures Name Priority Associated Diagnoses Date/Ti me XI Robotic Laparoscopic Vert ical Sleeve Gastrectomy Morbid obesity with BMI of 40.0-44.9, adult (HRC) documented as of this encounter Visit Diagnoses Diagnosis Morbid obesity with BMI of 40.0-44.9, adult (HRC)- Primary Heart palpitations- Primary Palpitations Tachycardia Tachycardia, unspecified documented in this encounter Care Teams Parts Facilitator Relationship Specialty Start Date End Date Jennifer Palumbo PA-C [address] [place] [address] PCP - General Physician Separator Operator [employer]ats 02/02/22 documented as of this encounter
--- OUTSIDE RECORDS SUMMARY | 2024-04-21 17:47 | XMS_ITS | Clinical Summary ---
Author Organization [facility] Address [place], [place] [address] Care Team Providers Care Lead Database Administrator Name Role Phone Jennifer Palumbo PA-C Primary Care Provider [phone] Allergies Active Allergy Reactions Criticality Noted Date Comments Amoxicillin Hives 03/07/2012 Penicillins Hives,Rash Low 08/12/2001 Medications atenoloL (TENORMIN) 25 mg tabletIndication s:Tachycardia Take 1 Tablet (25 mg) by mouth once daily. 90 Tablet 3 04/21/2024 Active Active Problems Problem Noted Date Diagnosed Date OM, ACUTE SUPPURATIVE NOS 12/19/2000 PAIN IN JOINT, HAND WARTS, VIRAL Encounters Date Type Department Care Team Description 04/21/2024 11:00 AM HYDRAULIC BLOCKER Office Visit [facility] [address] [place] [address] Дмитрий Gaming MD Consult 04/21/2024 Orders Only [facility] [address] [place] [address] Дмитрий Gaming MD 1 scan: (1-Ord) 04/21/2024 04/21/[address] [facility] [address] [place] [address] Дмитрий Gaming MD Dizziness (Patient calling c/o dizziness/light headed s/p starting new Atenolol [address] Gaming) 04/21/2024 Travel 04/16/2024 Orders Only [facility] [address] [place] [address] Beti Smith 1 scan: (1-Ord) Zio from Last 3 Months Immunizations Name Administration Dates Next Due DTP 08/25/1993,11/12/1989,1988 ,1988,1988 Hepatitis B (Peds) 05/03/2001,12/24/2000, 001 MMR 08/25/1993,08/21/1989 Oral Polio Vaccine 08/25/1993,11/12/1989, 989,1988 Family History Medical History Relation Name Comments Genetic Other heart disease~d iabetes Relation Name Status Comments Mother Alive Other Social History Tobacco Use Types Packs/Day Years Used Date Smoking Tobacco: Former Cigarettes Q uit: 06/07/2010 Smokeless Tobacco: Never Tobacco Cessation:Counseling Given: Not Answered Alcohol Use Standard Drinks/Week Comments Not Currently 0 (1 standard drink = 0.6 oz pur e alcohol) Comments Unknown Sex and Gender Information Value Date Recorded Sex Assigned at Not on file Legal Sex Female 5:25 AM HYDRAULIC BLOCKER Gender Identity Not on file Sexual Orientation Not on file Obstetrics History Last Filed Vital Signs Vital Sign Reading Time Taken Comments Blood Pressure 116/70 04/21/2024 10:49 AM HYDRAULIC BLOCKER Pulse 72 04/21/2024 10:49 AM HYDRAULIC BLOCKER Temperature 36.2 C (97.1 F) 02/08/2022 4:51 PM CDT Respiratory Rate 17 02/08/2022 4:51 PM CDT Oxygen Saturation 99% 02/08/2022 4:51 PM CDT Inhaled Oxygen Concentration - - Weight 124.3 kg (274 lb) 04/21/2024 10:49 AM HYDRAULIC BLOCKER Height 170.2 cm (5' 7) 04/21/2024 10:49 AM HYDRAULIC BLOCKER Body Mass Index 42.91 04/21/2024 10:49 AM HYDRAULIC BLOCKER Plan of Treatment Upcoming Encounters Date Type Department Care Team (Late st Contact Info) Description 04/23/2024 12:05 PM HYDRAULIC BLOCKER Appointment [facility] [address] [place] [address] 04/23/2024 1:30 PM HYDRAULIC BLOCKER Appointment [facility] [address], [address] [place] [address] Health Maintenance Due Date Last Done Comments Pneumococcal series for age 6-64 (1 of 2 - PCV) 1994 Tdap 1999 Depression screening for age 12+ 2000 HIV for age 15-65 2003 Hepatitis C screening for age 18-79 2006 Tetanus booster 2008 Pap test for age 21-65 2009 COVID-19 vaccine series ( season) 2024 05/02/2021, 09/13/2020, 08/16/2020 Influenza for age 9-49 01/13/2024 BMI (ht and wt on same day) for age 18+ 04/21/2025 04/21/2024 Procedures Procedure Name Priority Date/Time Associated Diagnosis Comments EKG 12 LEAD Routine 04/21/2024 12:00 AM HYDRAULIC BLOCKER Routine general medical examination at a health care facility EXTENDED HOLTER Routine 03/28/2024 Cardiac arrhythmia, unspecified cardiac arrhythmia type from Last 3 Months Results * EKG 12 LEAD (04/21/2024 12:00 AM HYDRAULIC BLOCKER) us Дмитрий Gaming MD EKG ORD Final Result * EXTENDED HOLTER (03/28/2024) us Conor Sanabria CARDIAC SERVICES ORD Final Resul t from Last 3 Months Insurance [employer] MR PB ONLY [facility] CARE Care Teams Lead Database Administrator Relationship Specialty Start Date End Date Jennifer Palumbo PA-C [address] [place] [address] PCP - General Physician Property Management Supervisor 04/21/24
[2024-04-21] MEDS: ONDANSETRON ODT 4 MG TAB PO (17:48)
--- OUTSIDE RECORDS SUMMARY | 2024-04-21 17:48 | XMS_ITS | Encounter Summary ---
Author Organization [email or web address] Address [address] [place] [address] Care Team Providers Care Rf Technician Name Role Phone Jennifer Palumbo PA-C Primary Care Provider [phone] Encounter Details Date Type Department Care Team (Late st Contact Info) Description 01/11/2024 E-Visit [facility] [address] [facility] [address] [place], [place] [address] Letitia Isaac Social History Tobacco Use Types [...] st Contact Info) Description 04/25/2024 Hospital Encounter [facility] Operating Room [address] [facility] [place], [place] [address] Jayme Gardiner MBBS [address] [facility] [address] [place], [place] [address] 06/09/2024 10:00 AM FRAMING CARPENTER Appointment Nursing at [address] [address] Scheduled Procedures Name Priority Associated Diagnoses Date/Ti me XI Robotic Laparoscopic Vert ical Sleeve Gastrectomy Morbid obesity with BMI of 40.0-44.9, adult (HRC) documented as of this encounter Visit Diagnoses Not on filedocumented in this encounter Care Teams Rf Technician Relationship Specialty Start Date End Date Jennifer Palumbo PA-C [address] [place] [address] PCP - General Physician Senior Warehouse Clerk 02/02/22 documented as of this encounter
== END 2024-04-21 19:15 | disposition home or self-care (01) ==
PROVIDERS: Emergency Provider Family Medicine
DX: R11.0 Nausea (principal); T44.7X5A Adverse effect of beta-adrenoreceptor antagonists, initial encounter
CPT/HCPCS: 93005; 94761; 99283; 99284; A9270

== ENCOUNTER 2024-04-22 13:40 | Outpatient (CLI) | payer OTHER, SELFPAY ==
--- OUTSIDE RECORDS SUMMARY | 2024-04-22 13:45 | XMS_ITS | Encounter Summary ---
Author Organization [facility] Address [address] [place] [address] Care Team Providers Care Layout Operator Name Role Phone Jennifer Palumbo PA-C Primary Care Provider [phone] Encounter Details Date Type Department Care Team (Late st Contact Info) Description 2024 Notes/Orders [facility] [address] [address] [place], [place] [address] Letitia Isaac Social History Tobacco Use Types [...] st Contact Info) Description 04/25/2024 Hospital Encounter [facility] Operating Room [address] [facility] [place], [place] [address] Jayme Gardiner MBBS [address] [facility] [address] [place], [place] [address] 06/09/2024 10:00 AM GRAIN BUYER Appointment Nursing at [address] [address] Scheduled Procedures Name Priority Associated Diagnoses Date/Ti me XI Robotic Laparoscopic Vert ical Sleeve Gastrectomy Morbid obesity with BMI of 40.0-44.9, adult (HRC) documented as of this encounter Visit Diagnoses Not on filedocumented in this encounter Care Teams Layout Operator Relationship Specialty Start Date End Date Jennifer Palumbo PA-C [address] [place] [address] PCP - General Physician Workers Compensation Adjuster 02/02/22 documented as of this encounter
--- OUTSIDE RECORDS SUMMARY | 2024-04-22 13:45 | XMS_ITS | Referral Summary ---
Author Organization [facility] Address [address] [place] [address] Care Team Providers Care Helicopter Repairer Name Role Phone Jennifer Palumbo Primary Care Provider [phone] Encounters Date Type Department Care Team Description 04/19/2024 Travel 04/19/2024 8:42 AM SUBSTANCE ABUSE SERVICES DIRECTOR - 04/19/2024 11:04 AM [facility] Emergency Dept [address] [place] [address] [phone] Cezar Jhaveri MD Palpitations Discharge Disposition: Home [...] on file Legal Sex Female 6:11 PM SUBSTANCE ABUSE SERVICES DIRECTOR Gender Identity Not on file Sexual Orientation Not on file Last Filed Vital Signs Vital Sign Reading Time Taken Comments Blood Pressure 118/78 04/19/2024 10:45 AM SUBSTANCE ABUSE SERVICES DIRECTOR Pulse 81 04/19/2024 11:00 AM SUBSTANCE ABUSE SERVICES DIRECTOR Temperature 36.3 C (97.4 F) 04/19/2024 8:42 AM SUBSTANCE ABUSE SERVICES DIRECTOR Respiratory Rate 28 04/19/2024 11:00 AM SUBSTANCE ABUSE SERVICES DIRECTOR Oxygen Saturation 98% 04/19/2024 11:00 AM SUBSTANCE ABUSE SERVICES DIRECTOR Inhaled Oxygen Concentration - - Weight 125.9 kg (277 lb 9 oz) 04/19/2024 8:42 AM SUBSTANCE ABUSE SERVICES DIRECTOR Height 170.2 cm (5' 7) 04/19/2024 8:42 AM SUBSTANCE ABUSE SERVICES DIRECTOR Body Mass Index 43.47 04/19/2024 8:42 AM SUBSTANCE ABUSE SERVICES DIRECTOR Plan of Treatment Not on file Procedures Procedure Name Priority Date/Time Associated Diagnosis Comments CBC WITH PLATELETS & DIFFERENTIAL STAT 04/19/2024 10:12 AM SUBSTANCE ABUSE SERVICES DIRECTOR CBC WITH PLATELETS AND DIFFERENTIAL STAT 04/19/2024 10:12 AM SUBSTANCE ABUSE SERVICES DIRECTOR TSH WITH FREE T4 REFLEX STAT 04/19/2024 10:12 AM SUBSTANCE ABUSE SERVICES DIRECTOR BASIC METABOLIC PANEL STAT 04/19/2024 10:12 AM SUBSTANCE ABUSE SERVICES DIRECTOR EKG 12-LEAD, TRACING ONLY STAT 04/19/2024 8:36 AM SUBSTANCE ABUSE SERVICES DIRECTOR from Last 3 Months Results * CBC with platelets and differential (04/19/2024 10:12 AM SUBSTANCE ABUSE SERVICES DIRECTOR) WBC Count 8.7 4.0 - 11.0 10e3/uL 04/19/2024 10:19 AM SUBSTANCE ABUSE SERVICES DIRECTOR [facility] RBC Count 4.80 3.80 - 5.20 10e6/uL 04/19/2024 10:19 AM SUBSTANCE ABUSE SERVICES DIRECTOR [facility] Hemoglobin 13.9 11.7 - 15.7 g/dL 04/19/2024 10:19 AM SUBSTANCE ABUSE SERVICES DIRECTOR [facility] Hematocrit 40.7 35.0 - 47.0 % 04/19/2024 10:19 AM SUBSTANCE ABUSE SERVICES DIRECTOR [facility] MCV 85 78 - 100 fL 04/19/2024 10:19 AM SUBSTANCE ABUSE SERVICES DIRECTOR [facility] MCH 29.0 26.5 - 33.0 pg 04/19/2024 10:19 AM SUBSTANCE ABUSE SERVICES DIRECTOR [facility] MCHC 34.2 31.5 - 36.5 g/dL 04/19/2024 10:19 AM SUBSTANCE ABUSE SERVICES DIRECTOR [facility] RDW 12.0 10.0 - 15.0 % 04/19/2024 10:19 AM SUBSTANCE ABUSE SERVICES DIRECTOR [facility] Platelet Count 229 150 - 450 10e3/uL 04/19/2024 10:19 AM SUBSTANCE ABUSE SERVICES DIRECTOR [facility] % Neutrophils 73 % 04/19/2024 10:19 AM SUBSTANCE ABUSE SERVICES DIRECTOR [facility] % Lymphocytes 19 % 04/19/2024 10:19 AM SUBSTANCE ABUSE SERVICES DIRECTOR [facility] % Monocytes 7 % 04/19/2024 10:19 AM SUBSTANCE ABUSE SERVICES DIRECTOR [facility] % Eosinophils 0 % 04/19/2024 10:19 AM SUBSTANCE ABUSE SERVICES DIRECTOR [facility] % Basophils 1 % 04/19/2024 10:19 AM SUBSTANCE ABUSE SERVICES DIRECTOR [facility] % Immature Granulocytes 0 % 04/19/2024 10:19 AM SUBSTANCE ABUSE SERVICES DIRECTOR [facility] NRBCs per 100 WBC 0 <1 /100 024 10:19 AM SUBSTANCE ABUSE SERVICES DIRECTOR [facility] Absolute Neutrophils 6.3 1.6 - 8.3 10e3/uL 04/19/2024 10:19 AM SUBSTANCE ABUSE SERVICES DIRECTOR [facility] Absolute Lymphocytes 1.7 0.8 - 5.3 10e3/uL 04/19/2024 10:19 AM SUBSTANCE ABUSE SERVICES DIRECTOR [facility] Absolute Monocytes 0.6 0.0 - 1.3 10e3/uL 04/19/2024 10:19 AM SUBSTANCE ABUSE SERVICES DIRECTOR [facility] Absolute Eosinophils 0.0 0.0 - 0.7 10e3/uL 04/19/2024 10:19 AM SUBSTANCE ABUSE SERVICES DIRECTOR [facility] Absolute Basophils 0.0 0.0 - 0.2 10e3/uL 04/19/2024 10:19 AM SUBSTANCE ABUSE SERVICES DIRECTOR LABORATORY Absolute Immature Granulocytes 0.0 <=0.4 10e3/uL 04/19/2024 10:19 AM SUBSTANCE ABUSE SERVICES DIRECTOR [facility] Absolute NRBCs 0.0 10e3/uL 04/19/2024 10:19 AM SUBSTANCE ABUSE SERVICES DIRECTOR [facility] Blood STRUCTURE OF RIGHT UPPER LIMB / Unknown Venipuncture / Unknown 04/19/2024 10:12 AM SUBSTANCE ABUSE SERVICES DIRECTOR 04/19/2024 10:16 AM SUBSTANCE ABUSE SERVICES DIRECTOR Cezar Jhaveri MD LAB - BLOOD ORDERABLES Final Result [facility] Lab [address] Lab (1st floor, no room number) [address] * TSH with free T4 reflex (04/19/2024 10:12 AM SUBSTANCE ABUSE SERVICES DIRECTOR) TSH 1.84 0.30 - 4.20 uIU/mL 04/19/2024 10:48 AM SUBSTANCE ABUSE SERVICES DIRECTOR LABORATORY Blood STRUCTURE OF RIGHT UPPER LIMB / Unknown Venipuncture / Unknown 04/19/2024 10:12 AM SUBSTANCE ABUSE SERVICES DIRECTOR 04/19/2024 10:16 AM SUBSTANCE ABUSE SERVICES DIRECTOR us Cezar Jhaveri MD LAB - BLOOD ORDERABLES Final Result Performing Organization Address City/[facility]/ZIP Co de Phone Number LABORATORY [facility] Care Lab [address] Lab (1st floor, no room number) [address] * (ABNORMAL) Basic metabolic panel (04/19/2024 10:12 AM SUBSTANCE ABUSE SERVICES DIRECTOR) Sodium 137 135 - 145 mmol/L 04/19/2024 10:41 AM [facility] Potassium 4.2 3.4 - 5.3 mmol/L 04/19/2024 10:41 AM [facility] Chloride 103 98 - 107 mmol/L 04/19/2024 10:41 AM [facility] Carbon Dioxide (CO2) 21(L) 22 - 29 mmol/L 04/19/2024 10:41 AM [facility] Anion Gap 13 7 - 15 mmol/L 04/19/2024 10:41 AM [facility] Urea Nitrogen 16.7 6.0 - 20.0 mg/dL 04/19/2024 10:41 AM [facility] Creatinine 0.83 0.51 - 0.95 mg/dL 04/19/2024 10:41 AM [facility] GFR Estimate >90 >60 mL/min/1.7 3m2 04/19/2024 10:41 AM [facility] Comment:eGFR calculated usin g 2020 CKD-EPI equation. Calcium 9.4 8.8 - 10.4 mg/dL 04/19/2024 10:41 AM SUBSTANCE ABUSE SERVICES DIRECTOR [facility] Comment:Reference intervals for this test were updated on 11/27/2023 to reflect our healthy population more accurately. There may be differences in the flagging of prior results with similar values performed with this method. Those prior results can be interpreted in the context of the updated reference intervals. Glucose 104(H) 70 - 99 mg/dL 04/19/2024 10:41 AM SUBSTANCE ABUSE SERVICES DIRECTOR LABORATORY Blood STRUCTURE OF RIGHT UPPER LIMB / Unknown Venipuncture / Unknown 04/19/2024 10:12 AM SUBSTANCE ABUSE SERVICES DIRECTOR 04/19/2024 10:16 AM SUBSTANCE ABUSE SERVICES DIRECTOR us Cezar Jhaveri MD LAB - BLOOD ORDERABLES Final Result [facility] Lab [address] Lab (1st floor, no room number) [place] [address] * EKG 12 lead (04/19/2024 8:36 AM SUBSTANCE ABUSE SERVICES DIRECTOR) Systolic Blood Pressure mmHg RADIOLOGY RESULTS Diastolic Blood Pressure mmHg RADIOLOGY RESULTS Ventricular Rate 84 BPM RAD IOLOGY RESULTS Atrial Rate 84 BPM RADIOLOG Y RESULTS [place] Interval 152 ms RADIOLOG Y RESULTS QRS Duration 88 ms RADIOLO GY RESULTS QT 366 ms RADIOLOGY RESULTS QTc 432 ms RADIOLOGY RESULTS P [place] 20 degrees RADIOLOGY RESULTS R AXIS 41 degrees RADIOLOGY RESULTS T [place] 40 degrees RADIOLOGY RESULTS Interpretation ECG Sinus rhythm Low voltage QRS Borderline ECG When compared with ECG of 18-Jun-2021 09:50, No significant change was found Confirmed by - EMERGENCY ROOM, PHYSICIAN ([id number]), associate entertainment editor SAMAN CRUZ (Charles) on 04/21/2024 7:02:21 AM RADIOLOGY RESULTS 04/19/2024 8:36 AM SUBSTANCE ABUSE SERVICES DIRECTOR 04/21/2024 7:02 AM SUBSTANCE ABUSE SERVICES DIRECTOR us Constantine Brown MD ECG ORDERABLES Edited Result - Final RADIOLOGY RESULTS from Last 3 Months Insurance [facility] COMM[employer]CIAL [facility] COMM[employer] Member Subscriber Plan / Payer (Ef fective 2023-Present) Name:Ely Campbell Relation to Subscriber:Self Name:Ely Campbell Payer ID:[id number] (NAIC) Type:HMO Address: [place] [phone] Care Teams Helicopter Repairer Relationship Specialty Start Date End Date Jennifer Palumbo [facility] [address] [place] [address] PCP - General 09/11/23
--- OUTSIDE RECORDS SUMMARY | 2024-04-22 13:45 | XMS_ITS | Encounter Summary ---
Author Organization [facility] Address [address] [place] [address] Care Team Providers Care Marking Room Supervisor Name Role Phone Jennifer Palumbo Primary Care Provider [phone] Reason for Visit * Reason Comments Palpitations Encounter Details Date Type Department Care Team (Late st Contact Info) Description 04/19/2024 8:42 AM LAB COURIER - 04/19/2024 11:04 AM LAB COURIER Emergency [facility] Emergency Dept [address] [place] [address] [phone] Cezar Jhaveri MD EMERGENCY PHYSICIAN [facility] [address] [place] [id number] Palpitations Discharge Disposition: Home or Self Care Social History Tobacco Use Types Packs/Day Years Used Date Smoking Tobacco: Never Assessed Adolescent Education Answer Date Record ed Getting School Help Needed Not on file 02/03 Comments No Sex and Gender Information Value Date Recorded Sex Assigned at Not on file Legal Sex Female 6:11 PM LAB COURIER Gender Identity Not on file Sexual Orientation Not on file documented as of this encounter Last Filed Vital Signs Vital Sign Reading Time Taken Comments Blood Pressure 118/78 04/19/2024 10:45 AM LAB COURIER Pulse 81 04/19/2024 11:00 AM LAB COURIER Temperature 36.3 C (97.4 F) 04/19/2024 8:42 AM LAB COURIER Respiratory Rate 28 04/19/2024 11:00 AM LAB COURIER Oxygen Saturation 98% 04/19/2024 11:00 AM LAB COURIER Inhaled Oxygen Concentration - - Weight 125.9 kg (277 lb 9 oz) 04/19/2024 8:42 AM LAB COURIER Height 170.2 cm (5' 7) 04/19/2024 8:42 AM LAB COURIER Body Mass Index 43.47 04/19/2024 8:42 AM LAB COURIER documented in this encounter Discharge Instructions * Attachments The following attachments cannot be sent through Care Everywhere. * Palpitations (Samoan) documented in this encounter Medications at Time [...] high as 210. She was seen at [facility] on 03/29 and had a workup performed. She then had a Zio patch which she wore for 2 weeks. She denies having any palpitations while she had the Zio patch on. She had another episode of palpitations and tachycardia yesterday which prompted another visit to the [facility]. She notes that she feels dizzy [...] arrhythmias during her Zio patch. I reviewed [facility] visit from yesterday. EKG showed sinus [...] Pressure Ventricular Rate 84 Atrial Rate 84 LA Interval 152 QRS Duration 88 QT 366 QTc 432 P [place] 20 R AXIS 41 T [place] 40 Interpretation ECG Sinus rhythm Low voltage QRS Borderline ECG When compared with ECG of 18-Jun-2021 09:50, No significant change was found Independent Interpretation None ED Course Medications Administered Medications - No data to display Procedures Procedures Discussion of Management None ED Course Additional Documentation None Medical Decision Making / Diagnosis [facility] Diagnoses: None MIPS None [facility] Ely Campbell is a 34 year old [...] Emilio Fernandes Shaun M, MD 04/19/24 1055 COURIER * Sharon Neves - 04/19/2024 8:53 AM CST Placed Pt. on monitor (5-lead continous ECG, pulse ox, BP cuff). COURIER * Kiersten Harley, RN - 04/19/2024 8:40 AM CST Pt arrives with c/o palpitations. Pt reports her apple watch showed her heart rate was in the 160'anusha morning and she was feeling SOB. Pt reports being seen in [place] for the same thing yesterday and on 03/29 with nothing abnormal found. Triage Assessment (Adult) Row Name 04/19/24 0840 Triage Assessment Airway WDL WDL Respiratory WDL Respiratory WDL WDL Skin Circulation/Temperature WDL Skin Circulation/Temperature WDL WDL Cardiac WDL Cardiac WDL WDL Peripheral/Neurovascular WDL Peripheral Neurovascular WDL WDL Cognitive/Neuro/Behavioral WDL Cognitive/Neuro/Behavioral WDL WDL COURIER documented in this encounter Plan of Treatment Not on file documented as of this encounter Procedures Procedure Name Priority Date/Time Associated Diagnosis Comments CBC WITH PLATELETS AND DIFFERENTIAL STAT 04/19/2024 10:12 AM LAB COURIER CBC WITH PLATELETS & DIFFERENTIAL STAT 04/19/2024 10:12 AM LAB COURIER TSH WITH FREE T4 REFLEX STAT 04/19/2024 10:12 AM LAB COURIER BASIC METABOLIC PANEL STAT 04/19/2024 10:12 AM LAB COURIER EKG 12-LEAD, TRACING ONLY STAT 04/19/2024 8:36 AM LAB COURIER documented in this encounter Results * CBC with platelets and differential (04/19/2024 10:12 AM LAB COURIER) [facility] WBC Count 8.7 4.0 - 11.0 10e3/uL 04/19/2024 10:19 AM LAB COURIER [facility] RBC Count 4.80 3.80 - 5.20 10e6/uL 04/19/2024 10:19 AM LAB COURIER [facility] Hemoglobin 13.9 11.7 - 15.7 g/dL 04/19/2024 10:19 AM LAB COURIER [facility] Hematocrit 40.7 35.0 - 47.0 % 04/19/2024 10:19 AM LAB COURIER [facility] MCV 85 78 - 100 fL 04/19/2024 10:19 AM LAB COURIER [facility] MCH 29.0 26.5 - 33.0 pg 04/19/2024 10:19 AM LAB COURIER [facility] MCHC 34.2 31.5 - 36.5 g/dL 04/19/2024 10:19 AM LAB COURIER [facility] RDW 12.0 10.0 - 15.0 % 04/19/2024 10:19 AM LAB COURIER [facility] Platelet Count 229 150 - 450 10e3/uL 04/19/2024 10:19 AM LAB COURIER [facility] % Neutrophils 73 % 04/19/2024 10:19 AM LAB COURIER [facility] % Lymphocytes 19 % 04/19/2024 10:19 AM LAB COURIER [facility] % Monocytes 7 % 04/19/2024 10:19 AM LAB COURIER [facility] % Eosinophils 0 % 04/19/2024 10:19 AM LAB COURIER [facility] % Basophils 1 % 04/19/2024 10:19 AM LAB COURIER [facility] % Immature Granulocytes 0 % 04/19/2024 10:19 AM LAB COURIER [facility] NRBCs per 100 WBC 0 <1 /100 024 10:19 AM LAB COURIER [facility] Absolute Neutrophils 6.3 1.6 - 8.3 10e3/uL 04/19/2024 10:19 AM LAB COURIER [facility] Absolute Lymphocytes 1.7 0.8 - 5.3 10e3/uL 04/19/2024 10:19 AM LAB COURIER [facility] Absolute Monocytes 0.6 0.0 - 1.3 10e3/uL 04/19/2024 10:19 AM LAB COURIER [facility] Absolute Eosinophils 0.0 0.0 - 0.7 10e3/uL 04/19/2024 10:19 AM LAB COURIER [facility] Absolute Basophils 0.0 0.0 - 0.2 10e3/uL 04/19/2024 10:19 AM LAB COURIER [facility] Absolute Immature Granulocytes 0.0 <=0.4 10e3/uL 04/19/2024 10:19 AM LAB COURIER LABORATORY Absolute NRBCs 0.0 10e3/uL 04/19/2024 10:19 AM LAB COURIER LABORATORY Blood STRUCTURE OF RIGHT UPPER LIMB / Unknown Venipuncture / Unknown 04/19/2024 10:12 AM LAB COURIER 04/19/2024 10:16 AM LAB COURIER Cezar Jhaveri MD LAB - BLOOD ORDERABLES Final Result LABORATORY [facility] [address] Lab (1st floor, no room number) [address] * TSH with free T4 reflex (04/19/2024 10:12 AM LAB COURIER) TSH 1.84 0.30 - 4.20 uIU/mL 04/19/2024 10:48 AM LAB COURIER LABORATORY Blood STRUCTURE OF RIGHT UPPER LIMB / Unknown Venipuncture / Unknown 04/19/2024 10:12 AM LAB COURIER 04/19/2024 10:16 AM LAB COURIER us Cezar Jhaveri MD LAB - BLOOD ORDERABLES Final Result LABORATORY [facility] [address] Lab (1st floor, no room number) [place] [id number] * (ABNORMAL) Basic metabolic panel (04/19/2024 10:12 AM LAB COURIER) Sodium 137 135 - 145 mmol/L 04/19/2024 10:41 AM LAB COURIER LABORATORY Potassium 4.2 3.4 - 5.3 mmol/L 04/19/2024 10:41 AM LAB COURIER LABORATORY Chloride 103 98 - 107 mmol/L 04/19/2024 10:41 AM [facility] Carbon Dioxide (CO2) 21(L) 22 - 29 mmol/L 04/19/2024 10:41 AM [facility] Anion Gap 13 7 - 15 mmol/L 04/19/2024 10:41 AM [facility] Urea Nitrogen 16.7 6.0 - 20.0 mg/dL 04/19/2024 10:41 AM [facility] Creatinine 0.83 0.51 - 0.95 mg/dL 04/19/2024 10:41 AM [facility] GFR Estimate >90 >60 mL/min/1.7 3m2 04/19/2024 10:41 AM [facility] Comment:eGFR calculated usin g 2020 CKD-EPI equation. Calcium 9.4 8.8 - 10.4 mg/dL 04/19/2024 10:41 AM [facility] Comment:Reference intervals for this test were updated on 11/27/2023 to reflect our healthy population more accurately. There may be differences in the flagging of prior results with similar values performed with this method. Those prior results can be interpreted in the context of the updated reference intervals. Glucose 104(H) 70 - 99 mg/dL 04/19/2024 10:41 AM [facility] Blood STRUCTURE OF RIGHT UPPER LIMB / Unknown Venipuncture / Unknown 04/19/2024 10:12 AM LAB COURIER 04/19/2024 10:16 AM LAB COURIER us Cezar Jhaveri MD LAB - BLOOD ORDERABLES Final Result LABORATORY [facility] [address] Lab (1st floor, no room number) [place] [address] * EKG 12 lead (04/19/2024 8:36 AM LAB COURIER) Systolic Blood Pressure mmHg RADIOLOGY RESULTS Diastolic Blood Pressure mmHg RADIOLOGY RESULTS Ventricular Rate 84 BPM RAD IOLOGY RESULTS Atrial Rate 84 BPM RADIOLOG Y RESULTS LA Interval 152 ms RADIOLOG Y RESULTS QRS Duration 88 ms RADIOLO GY RESULTS QT 366 ms RADIOLOGY RESULTS QTc 432 ms RADIOLOGY RESULTS P [place] 20 degrees RADIOLOGY RESULTS R AXIS 41 degrees RADIOLOGY RESULTS T [place] 40 degrees RADIOLOGY RESULTS Interpretation ECG Sinus rhythm Low voltage QRS Borderline ECG When compared with ECG of 18-Jun-2021 09:50, No significant change was found Confirmed by - EMERGENCY ROOM, PHYSICIAN ([id number]), manuscript editor SAMAN CRUZ ([id number]) on 04/21/2024 7:02:21 AM RADIOLOGY RESULTS 04/19/2024 8:36 AM LAB COURIER 04/21/2024 7:02 AM LAB COURIER us Constantine Brown MD ECG ORDERABLES Edited Result - Final RADIOLOGY RESULTS documented in this encounter Visit Diagnoses Diagnosis Palpitations documented in this encounter Care Teams Marking Room Supervisor Relationship Specialty Start Date End Date Jennifer Palumbo [facility] [address] [place] [address] PCP - General 09/11/23 documented as of this encounter
--- OUTSIDE RECORDS SUMMARY | 2024-04-22 13:45 | XMS_ITS | Encounter Summary ---
Author Organization [facility] Address [address], [place] [address] Care Team Providers Care Mat Gauger Name Role Phone Jennifer Palumbo PA-C Primary Care Provider [phone] Encounter Details Date Type Department Care Team (Late st Contact Info) Description 04/21/2024 E-Consult [facility] [address], [address] [place] [address] Belen Yanez MD [address] [place] [address] Social History Tobacco Use Types Packs/Day Years [...] 04/25/2024 Hospital Encounter [facility] Operating Room [address] [facility] [place], [place] [phone] Jayme Gardiner MBBS [address] [facility] [address] [place] [address] 06/09/2024 10:00 AM EGG SETTER Appointment Nursing at [address] [phone] Scheduled Procedures Name Priority Associated Diagnoses Date/Ti me XI Robotic Laparoscopic Vert ical Sleeve Gastrectomy Morbid obesity with BMI of 40.0-44.9, adult ([facility]) documented as of this encounter Visit Diagnoses Not on filedocumented in this encounter Care Teams Mat Gauger Relationship Specialty Start Date End Date Jennifer Palumbo, PALichaC [address] [place], [place] [phone] PCP - General Physician Nailer Operator 02/02/22 documented as of this encounter
--- OUTSIDE RECORDS SUMMARY | 2024-04-22 13:45 | XMS_ITS | Encounter Summary ---
Author Organization [employer] Address [address] [place] [address] Care Team Providers Care Cop Examiner Name Role Phone Jennifer Palumbo PA-C Primary Care Provider [phone] Reason for Visit * Reason Comments QUESTIONS, GENERAL Entered automaticall y based on patient selection in [facility]. Encounter Details Date Type Department Care Team (Late st Contact Info) Description 04/21/2024 8:00 AM COMMUNICATION SKILLS INSTRUCTOR E-Visit [facility] [address] [place] [address] Jennifer Palumbo PA-C [address] [place] [address] Chief Comp: QUESTIONS, GENERAL Social [...] following up with a cardiology clinic through [facility] today.Phone visit scheduled with provider tomorrow to further discuss. Heavenly Poon RN 04/21/2024, 9:03 AM UNICATION SKILLS INSTRUCTOR documented in this encounter Plan of Treatment Upcoming Encounters Date Type Department Care Team (Late st Contact Info) Description 04/25/2024 Hospital Encounter [facility] Operating Room [address] [facility]. [place], [place] [id number] Jayme Gardiner MBBS [address] [facility] [address] [place] [address] 06/09/2024 10:00 AM COMMUNICATION SKILLS INSTRUCTOR Appointment Nursing at [address] [address] Scheduled Procedures Name Priority Associated Diagnoses Date/Ti me XI Robotic Laparoscopic Vert ical Sleeve Gastrectomy Morbid obesity with BMI of 40.0-44.9, adult ([facility]) documented as of this encounter Visit Diagnoses Not on filedocumented in this encounter Care Teams Cop Examiner Relationship Specialty Start Date End Date Jennifer Palumbo PA-C [address] [place] [address] PCP - General Physician Plumber And Tinner 02/02/22 documented as of this encounter
--- OUTSIDE RECORDS SUMMARY | 2024-04-22 13:45 | XMS_ITS | Encounter Summary ---
Author Organization [employer] Address [address], [place] [address] Care Team Providers Care Fence Installer Foreman Name Role Phone Jennifer Palumbo PA-C Primary Care Provider [phone] Reason for Visit * Reason Comments Follow-up Encounter Details Date Type Department Care Team (Late st Contact Info) Description 04/21/2024 Telephone [facility] [address] [facility] [address] [place] [address] Roxana Maynard PA-C [address] [place] [address] Follow-up Social History Tobacco Use [...] at a later date. Roxana Maynard PA-C NSED PSYCHOLOGIST DIRECTOR documented in this encounter Plan of Treatment Upcoming Encounters Date Type Department Care Team (Late st Contact Info) Description 04/25/2024 Hospital Encounter Confucianism Operating Room [address] [facility]. [place], [place] [id number] Jayme Gardiner MBBS [address] [facility] [address] [place], [place] [phone] 06/09/2024 10:00 AM LICENSED PSYCHOLOGIST DIRECTOR Appointment Nursing at [address] [address] Scheduled Procedures Name Priority Associated Diagnoses Date/Ti me XI Robotic Laparoscopic Vert ical Sleeve Gastrectomy Morbid obesity with BMI of 40.0-44.9, adult ([facility]) documented as of this encounter Visit Diagnoses Not on filedocumented in this encounter Care Teams Fence Installer Foreman Relationship Specialty Start Date End Date Jennifer Palumbo PA-C [address] [place] [address] PCP - General Physician Commodities Broker 02/02/22 documented as of this encounter
--- OUTSIDE RECORDS SUMMARY | 2024-04-22 13:45 | XMS_ITS | Clinical Summary ---
Author Organization [facility] Address [address] [facility] [place] [address] Care Team Providers Care Greeting Card Editor Name Role Phone Jennifer Palumbo PA-C Primary Care Provider [phone] Source Comments You are receiving this document as you are listed as the primary care provider,follow-up provider, or the patient has been referred to you for consultation.This is in compliance with the Medicare and[facility] Hospitalcaid EHR Incentive Program,which states Providers who transition their patient to another setting of careor provider of care or refers their patient to another provider of care shouldprovide summary care record for each transition of care or referral. My Dog [employer] Allergies Active Allergy Reactions Criticality Noted Date Comments Amoxicillin Rash 06/09/2013 Penicillins 08/12/2001 Medications Medication Sig Dispensed Refills Start Date End Date Status cholecalciferol (VITAMIN D3) 1.25 MG (28727 UT) capsule Take 1 Capsule (50,000 Units) by mouth once every week. 12 Capsule 08/24/2023 Active cholecalciferol (VITAMIN D3) 1.25 MG (16884 UT) capsule Take 1 Capsule (50,000 Units) [...] Department Care Team Description 04/21/2024 8:00 AM CORE STRIPPER E-Visit [facility] [address] [place] [phone] Jennifer Palumbo, PA-C Chief Comp: QUESTIONS, GENERAL 04/21/2024 Telephone [facility] [address] [place] [address] Roxana Maynard, PA-C Follow-up 04/21/2024 E-Consult [facility] [address], [address] [place], [place] [id number] Belen Yanez MD 04/20/2024 Nurse Triage Careline [address] [place], [place] [address] Unknown, Physician SYNCOPE/NEAR--SYNCOP E--ED; HEARTBEAT,IRREGULAR 04/19/2024 Notes/Orders [facility] [address] [place] [address] Jennifer Palumbo PA-C Heart palpitations (Primary Dx); Tachycardia 04/18/2024 Telephone [facility] [address] [facility] [address] [place] [address] Julio Cesar Gao, MANDEEP Careplan: General 2024 Notes/Orders [facility] [address] [address] Letitia Isaac 04/14/2024 8:00 AM CORE STRIPPER Telemedicine [facility] [address] [address] Sierra Palm RDN, LD Morbid obesity with BMI of 40.0-44.9, adult (HRC) (Primary Dx) 04/09/2024 8:30 AM CORE STRIPPER Lab Visit Laboratory at [address] [address] Preop examination 04/09/2024 8:10 AM CORE STRIPPER Pre-Op Visit [address] [phone] Jennifer Palumbo PA-C Preop examination (Primary Dx); Morbid obesity with body mass index (BMI) of 40.0 to 44.9 in adult (HRC); Tachycardia 03/19/2024 8:00 AM CORE STRIPPER Nursing Visit Nursing at [address] [phone] Surveillance of contraceptive injection (Primary Dx) 02/05/2024 Notes/Orders [facility] [address] [place] [address] [address] Letitia Isaac 02/04/2024 2:40 PM CDT Office Visit [facility] [address] [address] Jayme Gardiner MBBS Morbid obesity with BMI of 40.0-44.9, adult (HRC) (Primary Dx) 02/01/2024 10:00 AM CDT Telemedicine [facility] [address] [place] [address] Meenakshi León RN Morbid obesity with body mass index (BMI) of 40.0 to 44.9 in adult (HRC) (Primary Dx) 02/01/2024 E-Visit [facility] [address] [place] [address] Mychart, Generic Provider from Last 3 Months [...] Comments Blood Pressure 138/83 04/09/2024 8:03 AM CORE STRIPPER Pulse 74 04/09/2024 8:03 AM CORE STRIPPER Temperature 36.7 C (98.1 F) 08/22/2023 8:00 AM CDT Respiratory Rate 18 09/04/2022 8:26 AM CDT Oxygen Saturation 99% 06/12/2022 10:02 AM CORE STRIPPER Inhaled Oxygen Concentration - - Weight 122.5 kg (270 lb) 04/13/2024 8:18 PM CORE STRIPPER Height 170.2 cm (5' 7) 04/13/2024 8:18 PM CORE STRIPPER Body Mass Index 42.29 04/13/2024 8:18 PM CORE STRIPPER Plan of Treatment Upcoming Encounters Date Type Department Care Team (Late st Contact Info) Description 04/25/2024 Hospital Encounter [facility] [address] [place], [place] [phone] Jayme Gardiner MBBS [address] [facility] [address] [place] [address] 06/09/2024 10:00 AM CORE STRIPPER Appointment Nursing at [address] [phone] Scheduled Procedures Name Priority Associated [...] Comments TEST (URINE) Routine 04/09/2024 8:52 AM CORE STRIPPER Preop examination COMPLETE BLOOD COUNT-W/DIFF Routine 04/09/2024 8:35 AM CORE STRIPPER Preop examination BASIC METABOLIC PANEL Routine 04/09/2024 8:35 AM CORE STRIPPER Preop examination CBC AND DIFFERENTIAL PANEL Routine 04/09/2024 8:35 AM CORE STRIPPER Preop examination HGB A1C Routine 08/20/2023 7:41 AM CDT Screening for diabetes mellitus HIV 1/2 AG/AB 4TH GEN Routine 05/22/2022 10:11 AM CORE STRIPPER Screening for HIV (human immunodeficiency virus) HEPATITIS C ANTIBODY, WITH REFLEX Routine 05/22/2022 10:11 AM CORE STRIPPER Encounter for HCV screening test for low risk patient PAP TEST Routine 05/22/2022 10:07 AM CORE STRIPPER Screening for malignant neoplasm of cervix from Last 3 Months or Most Recently Relevant to Health Maintenance Results * Test (Urine) (04/09/2024 8:52 AM CORE STRIPPER) HCG, Urine Negative Negative 04/09/2024 8:56 AM CORE STRIPPER [employer] [facility] Urine Non-blood Collection / Unknown 04/09/2024 8:52 AM CORE STRIPPER 04/09/2024 8:52 AM CORE STRIPPER Jennifer Palumbo PA-C LAB_1 [facility] [address] [place] [address], [facility] * Complete Blood Count-W/Diff (04/09/2024 8:35 AM CORE STRIPPER) WBC 7.4 3.5 - 10.5 x10(9)/L 04/09/2024 8:57 AM CORE STRIPPER [facility] RBC 4.88 3.90 - 5.03 x10(12)/L 04/09/2024 8:57 AM CORE STRIPPER [facility] Hemoglobin 14.2 12.0 - 15.5 g/dL 04/09/2024 8:57 AM [facility] HCT 42.0 34.9 - 44.5 % 04/09/2024 8:57 AM [facility] MCV 86.1 80.0 - 100.0 fL 04/09/2024 8:57 AM [facility] MCH 29.1 27.6 - 33.3 pg 04/09/2024 8:57 AM [facility] MCHC 33.8 31.5 - 35.2 g/dL 04/09/2024 8:57 AM [facility] RDW 12.3 11.9 - 15.5 % 04/09/2024 8:57 AM [facility] Platelets 266 150 - 450 x10(9)/L 04/09/2024 8:57 AM [facility] Neutrophil Absolute 4.2 1.7 - 7.0 10(9)/L 04/09/2024 8:57 AM [facility] Lymphocyte Absolute 2.4 1.0 - 4.8 10(9)/L 04/09/2024 8:57 AM [facility] Monocyte Absolute 0.6 0.2 - 0.9 10(9)/L 04/09/2024 8:57 AM CORE STRIPPER [place] [facility] Eosinophil Absolute 0.1 0.0 - 0.5 10(9)/L 04/09/2024 8:57 AM [facility] Basophil Absolute 0.0 0.0 - 0.3 10(9)/L 04/09/2024 8:57 AM [facility] Immature Granulocyte % 0.1 0.0 - 0.5 % 04/09/2024 8:57 AM [facility] Blood Venipuncture / Unknown 04/09/2024 8:35 AM CORE STRIPPER 04/09/2024 8:35 AM CORE STRIPPER Jennifer Palumbo PA-C LAB_1 Performing Organization Address City/[facility] Co de Phone Number [facility] [address] [place] [address], [facility] * (ABNORMAL) BMP (04/09/2024 8:35 AM CORE STRIPPER) Sodium 138 136 - 145 mmol/L 04/09/2024 11:42 AM [facility] [employer] CENTRAL LAB Potassium 4.0 3.5 - 5.1 mmol/L 04/09/2024 11:42 AM [facility] Chloride 108 98 - 109 mmol/L 04/09/2024 11:42 AM [facility] [employer] [facility] CO2 23 20 - 29 mmol/L 04/09/2024 11:42 AM [facility] Anion Gap 7 6 - 16 mmol/L 04/09/2024 11:42 AM [facility] Calcium 9.7 8.4 - 10.4 mg/dL 04/09/2024 11:42 AM [facility] BUN 11 7 - 26 mg/dL 04/09/2024 11:42 AM [facility] Creatinine 0.73 0.55 - 1.02 mg/dL 04/09/2024 11:42 AM [facility] Glucose 104(H) 70 - 100 mg/dL 04/09/2024 11:42 AM [facility] Comment:The given reference range is for the fasting state. Non-fasting reference range for glucose is 70 - 180 mg/dL. GFR, Estimated >60 >60 mL/min/1. 73m2 04/09/2024 11:42 AM [facility] [employer] CENTRAL LAB Hours Fasting 0.1 8 - 12 Hours 04/09/2024 11:42 AM [facility] C[facility] Blood Venipuncture / Unknown 04/09/2024 8:35 AM CORE STRIPPER 04/09/2024 8:35 AM CORE STRIPPER Jennifer Palumbo PA-C LAB_1 Performing Organization Address City/State/[facility] de Phone Number [facility] [address] * Hgb A1c (08/20/2023 7:41 AM CDT) [facility] Hemoglobin A1C 4.8 <=5.6 % 08/20/2023 11:57 AM CDT [facility] C[facility] Estimated Average Glucose (Calc) 91 < 117 mg/dL 08/20/2023 11:57 AM CDT [facility] Comment:Estimated average gl ucose (eAG) converts A1c into glucose units (mg/dL) and estimates average glucose over the past approximately 3 months. The eAG reference interval (<117 mg/dL) corresponds to an A1c of <5.7%. Blood Venipuncture / Unknown 08/20/2023 7:41 AM CDT 08/20/2023 7:41 AM CDT Shruthi Araiza PA-C LAB_1 Performing Organization Address [facility] de Phone Number [facility] [address] * HIV 1/2 Ag/Ab 4th Generation (05/22/2022 10:11 AM CORE STRIPPER) [facility] HIV 1/2 Antigen/Anti body (4th generation) Negative (Non Reactive) Negative (Non Reactive) 05/22/2022 3:36 PM CORE STRIPPER [facility] Comment:HIV-1 p24 Antigen an d HIV-1/HIV-2 Antibody not detected Blood Venipuncture / Unknown 05/22/2022 10:11 AM CORE STRIPPER 05/22/2022 10:11 AM CORE STRIPPER Jennifer Palumbo PA-C LAB_1 Performing Organization Address [facility] Co de Phone Number [facility] [address] [phone] * Hepatitis C Antibody, with Reflex (05/22/2022 10:11 AM CORE STRIPPER) Hepatitis C Antibody Negative (Non Reactive) Negative (Non Reactive) 05/22/2022 3:31 PM CORE STRIPPER [facility] Comment:Antibodies to HCV no t detected. Does not exclude the possiblity of exposure to HCV. Blood Venipuncture / Unknown 05/22/2022 10:11 AM CORE STRIPPER 05/22/2022 10:11 AM CORE STRIPPER Jennifer Palumbo PA-C LAB_1 [facility] [address] [phone] * PAP Test (05/22/2022 10:07 AM CORE STRIPPER) Case Report Pap Case: [id number] Authorizing Provider: Jennifer Palumbo PA-C Collected: 05/22/2022 1007 Ordering Location: [facility] Received: 05/22/2022 1041 Practice First Screen: Ashleigh Anderson Specimen: Pap Test, Routine, Cervix/Endocervix 06/02/2022 9:50 AM [facility] Pap Specimen Adequacy Satisfactory for evaluation, endocervical/deng sformation zone component absent. 06/02/2022 9:50 AM [facility] Pap Interpretation (NILM) Negative for intraepithelial lesion or malignancy. 06/02/2022 9:50 AM [facility] Pap Disclaimer The Pap test is a screening test designed to aid in the detection of cervical cancer and its precursor lesions. It is not a diagnostic procedure and should not be used as the sole means of detecting cervical cancer. Both false-positive and false-negative results may occur. 06/02/2022 9:50 AM [facility] Gross Description The specimen is received in SurePath fixative and properly labeled. 1 Pap-stained SurePath slide is prepared. 06/02/2022 9:50 AM [facility] Embedded Images 9:50 AM [facility] Other Specimen Type ENTIRE ENDOCERVIX / Unknown 05/22/2022 10:07 AM CORE STRIPPER 05/22/2022 10:41 AM CORE STRIPPER Comment:LMP: No LMP recorded . Jennifer Palumbo PA-C LAB PATHOLOGY [address] [address], [facility] [phone] from Last 3 Months or Most Recently Relevant to Health Maintenance Care Teams Greeting Card Editor Relationship Specialty Start Date End Date Jennifer Palumbo PA-C [address] [place] [address] PCP - General Physician Flat Finisher 02/02/22
--- OUTSIDE RECORDS SUMMARY | 2024-04-22 13:45 | XMS_ITS | Clinical Summary ---
Author Organization [facility] Address [address] [place] [address] Care Team Providers Care Golf Course Laborer Name Role Phone Jennifer Palumbo Primary Care Provider [phone] Allergies Active Allergy Reactions Criticality Noted Date [...] Department Care Team Description 04/19/2024 8:42 AM PUBLIC HEALTH DENTIST - 04/19/2024 11:04 AM [facility] Emergency [facility] Emergency Dept [address] [place] [phone] Cezar Jhaveri MD Palpitations Discharge Disposition: Home or Self Care 04/19/2024 Travel from Last 3 Months Social History Tobacco Use Types Packs/Day Years Used Date Smoking Tobacco: Never Assessed Adolescent Education Answer Date Record ed Getting School Help Needed Not on file 02/03 Comments No Sex and Gender Information Value Date Recorded Sex Assigned at Not on file Legal Sex Female 6:11 PM PUBLIC HEALTH DENTIST Gender Identity Not on file Sexual Orientation Not on file Last Filed Vital Signs Vital Sign Reading Time Taken Comments Blood Pressure 118/78 04/19/2024 10:45 AM PUBLIC HEALTH DENTIST Pulse 81 04/19/2024 11:00 AM PUBLIC HEALTH DENTIST Temperature 36.3 C (97.4 F) 04/19/2024 8:42 AM PUBLIC HEALTH DENTIST Respiratory Rate 28 04/19/2024 11:00 AM PUBLIC HEALTH DENTIST Oxygen Saturation 98% 04/19/2024 11:00 AM PUBLIC HEALTH DENTIST Inhaled Oxygen Concentration - - Weight 125.9 kg (277 lb 9 oz) 04/19/2024 8:42 AM PUBLIC HEALTH DENTIST Height 170.2 cm (5' 7) 04/19/2024 8:42 AM PUBLIC HEALTH DENTIST Body Mass Index 43.47 04/19/2024 8:42 AM PUBLIC HEALTH DENTIST Plan of Treatment Health Maintenance Due Date [...] PLATELETS & DIFFERENTIAL STAT 04/19/2024 10:12 AM PUBLIC HEALTH DENTIST CBC WITH PLATELETS AND DIFFERENTIAL STAT 04/19/2024 10:12 AM PUBLIC HEALTH DENTIST TSH WITH FREE T4 REFLEX STAT 04/19/2024 10:12 AM PUBLIC HEALTH DENTIST BASIC METABOLIC PANEL STAT 04/19/2024 10:12 AM PUBLIC HEALTH DENTIST EKG 12-LEAD, TRACING ONLY STAT 04/19/2024 8:36 AM PUBLIC HEALTH DENTIST from Last 3 Months Results * CBC with platelets and differential (04/19/2024 10:12 AM PUBLIC HEALTH DENTIST) WBC Count 8.7 4.0 - 11.0 10e3/uL 04/19/2024 10:19 AM PUBLIC HEALTH DENTIST [facility] RBC Count 4.80 3.80 - 5.20 10e6/uL 04/19/2024 10:19 AM PUBLIC HEALTH DENTIST [facility] Hemoglobin 13.9 11.7 - 15.7 g/dL 04/19/2024 10:19 AM PUBLIC HEALTH DENTIST [facility] Hematocrit 40.7 35.0 - 47.0 % 04/19/2024 10:19 AM PUBLIC HEALTH DENTIST [facility] MCV 85 78 - 100 fL 04/19/2024 10:19 AM PUBLIC HEALTH DENTIST [facility] MCH 29.0 26.5 - 33.0 pg 04/19/2024 10:19 AM PUBLIC HEALTH DENTIST [facility] MCHC 34.2 31.5 - 36.5 g/dL 04/19/2024 10:19 AM PUBLIC HEALTH DENTIST [facility] RDW 12.0 10.0 - 15.0 % 04/19/2024 10:19 AM PUBLIC HEALTH DENTIST [facility] Platelet Count 229 150 - 450 10e3/uL 04/19/2024 10:19 AM PUBLIC HEALTH DENTIST [facility] % Neutrophils 73 % 04/19/2024 10:19 AM PUBLIC HEALTH DENTIST [facility] % Lymphocytes 19 % 04/19/2024 10:19 AM PUBLIC HEALTH DENTIST [facility] % Monocytes 7 % 04/19/2024 10:19 AM PUBLIC HEALTH DENTIST [facility] % Eosinophils 0 % 04/19/2024 10:19 AM PUBLIC HEALTH DENTIST [facility] % Basophils 1 % 04/19/2024 10:19 AM PUBLIC HEALTH DENTIST [facility] % Immature Granulocytes 0 % 04/19/2024 10:19 AM PUBLIC HEALTH DENTIST [facility] NRBCs per 100 WBC 0 <1 /100 024 10:19 AM PUBLIC HEALTH DENTIST [facility] Absolute Neutrophils 6.3 1.6 - 8.3 10e3/uL 04/19/2024 10:19 AM PUBLIC HEALTH DENTIST [facility] Absolute Lymphocytes 1.7 0.8 - 5.3 10e3/uL 04/19/2024 10:19 AM PUBLIC HEALTH DENTIST [facility] Absolute Monocytes 0.6 0.0 - 1.3 10e3/uL 04/19/2024 10:19 AM PUBLIC HEALTH DENTIST [facility] Absolute Eosinophils 0.0 0.0 - 0.7 10e3/uL 04/19/2024 10:19 AM PUBLIC HEALTH DENTIST [facility] Absolute Basophils 0.0 0.0 - 0.2 10e3/uL 04/19/2024 10:19 AM PUBLIC HEALTH DENTIST [facility] Absolute Immature Granulocytes 0.0 <=0.4 10e3/uL 04/19/2024 10:19 AM PUBLIC HEALTH DENTIST [facility] Absolute NRBCs 0.0 10e3/uL 04/19/2024 10:19 AM PUBLIC HEALTH DENTIST [facility] Blood STRUCTURE OF RIGHT UPPER LIMB / Unknown Venipuncture / Unknown 04/19/2024 10:12 AM PUBLIC HEALTH DENTIST 04/19/2024 10:16 AM PUBLIC HEALTH DENTIST us Cezar Jhaveri MD LAB - BLOOD ORDERABLES Final Result [facility] [address] Lab (1st floor, no room number) [place] [address], [facility] * TSH with free T4 reflex (04/19/2024 10:12 AM PUBLIC HEALTH DENTIST) TSH 1.84 0.30 - 4.20 uIU/mL 04/19/2024 10:48 AM PUBLIC HEALTH DENTIST [facility] Blood STRUCTURE OF RIGHT UPPER LIMB / Unknown Venipuncture / Unknown 04/19/2024 10:12 AM PUBLIC HEALTH DENTIST 04/19/2024 10:16 AM PUBLIC HEALTH DENTIST us Cezar Jhaveri MD LAB - BLOOD ORDERABLES Final Result LABORATORY [facility] [address] Lab (1st floor, no room number) [place] [address], [facility] * (ABNORMAL) Basic metabolic panel (04/19/2024 10:12 AM PUBLIC HEALTH DENTIST) Sodium 137 135 - 145 mmol/L 04/19/2024 10:41 AM [facility] Potassium 4.2 3.4 - 5.3 mmol/L 04/19/2024 10:41 AM [facility] Chloride 103 98 - 107 mmol/L 04/19/2024 10:41 AM [facility] Carbon Dioxide (CO2) 21(L) 22 - 29 mmol/L 04/19/2024 10:41 AM [facility] Anion Gap 13 7 - 15 mmol/L 04/19/2024 10:41 AM [facility] Urea Nitrogen 16.7 6.0 - 20.0 mg/dL 04/19/2024 10:41 AM [facility] Creatinine 0.83 0.51 - 0.95 mg/dL 04/19/2024 10:41 AM [facility] GFR Estimate >90 >60 mL/min/1.7 3m2 04/19/2024 10:41 AM [facility] Comment:eGFR calculated usin g 2020 CKD-EPI equation. Calcium 9.4 8.8 - 10.4 mg/dL 04/19/2024 10:41 AM [facility] Comment:Reference intervals for this test were updated on 11/27/2023 to reflect our healthy population more accurately. There may be differences in the flagging of prior results with similar values performed with this method. Those prior results can be interpreted in the context of the updated reference intervals. Glucose 104(H) 70 - 99 mg/dL 04/19/2024 10:41 AM [facility] Blood STRUCTURE OF RIGHT UPPER LIMB / Unknown Venipuncture / Unknown 04/19/2024 10:12 AM PUBLIC HEALTH DENTIST 04/19/2024 10:16 AM PUBLIC HEALTH DENTIST Cezar Jhaveri MD LAB - BLOOD ORDERABLES Final Result [facility] Lab [address] Lab (1st floor, no room number) [place] [address] * EKG 12 lead (04/19/2024 8:36 AM PUBLIC HEALTH DENTIST) Systolic Blood Pressure mmHg RADIOLOGY RESULTS Diastolic Blood Pressure mmHg RADIOLOGY RESULTS Ventricular Rate 84 BPM RAD IOLOGY RESULTS Atrial Rate 84 BPM RADIOLOG Y RESULTS MA Interval 152 ms RADIOLOG Y RESULTS QRS Duration 88 ms RADIOLO GY RESULTS QT 366 ms RADIOLOGY RESULTS QTc 432 ms RADIOLOGY RESULTS P Nitro 20 degrees RADIOLOGY RESULTS R AXIS 41 degrees RADIOLOGY RESULTS T Nitro 40 degrees RADIOLOGY RESULTS Interpretation ECG Sinus rhythm Low voltage QRS Borderline ECG When compared with ECG of 18-Jun-2021 09:50, No significant change was found Confirmed by - EMERGENCY ROOM, PHYSICIAN ([id number]), manuscript editor SAMAN CRUZ ([id number]) on 04/21/2024 7:02:21 AM RADIOLOGY RESULTS 04/19/2024 8:36 AM PUBLIC HEALTH DENTIST 04/21/2024 7:02 AM PUBLIC HEALTH DENTIST us Constantine Brown MD ECG ORDERABLES Edited Result - Final RADIOLOGY RESULTS from Last 3 Months Insurance Patient Feed COMMERCIAL [facility] COMMERCIAL Care Teams Golf Course Laborer Relationship Specialty Start Date End Date Jennifer Palumbo [facility] [id number] [place] [address] PCP - General 09/11/23
--- OUTSIDE RECORDS SUMMARY | 2024-04-22 13:45 | XMS_ITS | Encounter Summary ---
Author Organization [facility] Address [address] [place] [address] Care Team Providers Care Development And Housing Director Name Role Phone Gastroenterology, [facility] Primary Care Pr ovider Unavailable Jennifer Palumbo Primary Care Provider [phone] Encounter Details Date Type Department Care Team (Late st Contact Info) Description 06/15/2021 Documentation Only INTERFACED REPORT Unknown, Provider Social History Tobacco Use Types Packs/Day Years Used Date Smoking Tobacco: Never Assessed Comments No Sex and Gender Information Value Date Recorded Sex Assigned at Not on file Legal Sex Female 6:11 PM LOCKSTITCH SLEEVE MAKER Gender Identity Not on file Sexual Orientation Not on file COVID-19 Exposure Response Date Recorded In the last month, have you been in contact with someone who was confirmed or suspected to have Coronavirus / COVID-19? No / Unsure 06/18/2021 9:08 AM LOCKSTITCH SLEEVE MAKER documented as of this encounter Plan of Treatment Not on file documented as of this encounter Visit Diagnoses Not on filedocumented in this encounter Care Teams Development And Housing Director Relationship Specialty Start Date End Date Gastroenterology, [facility] PCP - General Gastroenterology 06/15/21 08/22/22 Jennifer Palumbo [facility] [address] [place] [address] PCP - General 09/11/23 documented as of this encounter
--- OUTSIDE RECORDS SUMMARY | 2024-04-22 13:45 | XMS_ITS | Encounter Summary ---
Author Organization [facility] Address [address] [place] [address] Care Team Providers Care Bar Gauger And Lubricator Tender Name Role Phone Jennifer Palumbo PA-C Primary Care Provider [phone] Encounter Details Date Type Department Care Team (Late st Contact Info) Description 02/01/2024 E-Visit [facility] [address] [facility] [address] [place], [place] [address] [place] [address] Social History Tobacco Use Types Packs/Day Years [...] st Contact Info) Description 04/25/2024 Hospital Encounter [facility] Operating Room [address] [facility] [place] [address] Jayme Gardiner MBBS [address] [facility] [address] [place] [address] 06/09/2024 10:00 AM RESEARCH LABORATORY SPECIALIST Appointment Nursing at [address] [phone] Scheduled Procedures Name Priority Associated Diagnoses Date/Ti me XI Robotic Laparoscopic Vert ical Sleeve Gastrectomy Morbid obesity with BMI of 40.0-44.9, adult ([facility]) documented as of this encounter Visit Diagnoses Not on filedocumented in this encounter Care Teams Bar Gauger And Lubricator Tender Relationship Specialty Start Date End Date Jennifer Palumbo PA-C [address] [place], [place] [phone] PCP - General Physician Chart Picker 02/02/22 documented as of this encounter
--- OUTSIDE RECORDS SUMMARY | 2024-04-22 13:45 | XMS_ITS | Encounter Summary ---
Author Organization [facility] Address [address] [address] Care Team Providers Care Concierge Receptionist Name Role Phone Jennifer Palumbo PA-C Primary Care Provider [phone] Reason for Visit * Reason Comments Depo Provera Injection Encounter Details Date Type Department Care Team (Latest Contact Info) Description 03/19/2024 8:00 AM ZYGLO TECHNICIAN Nursing Visit Nursing at [address] [address] Surveillance of contraceptive injection (Primary [...] Instructions* SayRadha LPN - 03/19/2024 8:00 AM ZYGLO TECHNICIAN Depo-Provera injection was given today, 03/19/24. Next [...] approved injection administration at the visit today O TECHNICIAN documented in this encounter Progress Notes [...] at the visit today 03/19/2024, 8:01 AM O TECHNICIAN documented in this encounter Nursing Notes * [...] 3 Radha Eldridge LPN, 03/17/2024, 2:14 PM O TECHNICIAN documented in this encounter Plan of Treatment Upcoming Encounters Date Type Department Care Team (Late st Contact Info) Description 04/25/2024 Hospital Encounter Tao[facility] Operating Room [address] [facility] [place] [address] Jayme Gardiner MBBS [address] [facility] [address] [place], [place] [address] 06/09/2024 10:00 AM ZYGLO TECHNICIAN Appointment Nursing at [address] [address] Scheduled Procedures Name Priority Associated [...] Administration: Single glove Given 03/19/2024 8:08 AM ZYGLO TECHNICIAN 150 mg Right Ventralgluteal Given 01/02/2024 9:51 AM CDT 150 mg Le ft Ventralgluteal Given 10/17/2023 10:51 AM CDT 150 mg R ight Ventralgluteal documented in this encounter Care Teams Concierge Receptionist Relationship Specialty Start Date End Date Jennifer Palumbo PA-C [address] [place], [place] [phone] PCP - General Physician Dat Instructor 02/02/22 documented as of this encounter
--- OUTSIDE RECORDS SUMMARY | 2024-04-22 13:45 | XMS_ITS | Encounter Summary ---
Author Organization [facility] Address [address] [place] [address] Care Team Providers Care L Tacker Name Role Phone Jennifer Palumbo PA-C Primary Care Provider [phone] Reason for Visit * Reason Comments SYNCOPE/NEAR--SYNCOPE--ED HEARTBEAT,IRREGULAR Encounter Details Date Type Department Care Team (Late st Contact Info) Description 04/20/2024 Nurse Triage Careline [address] [place] [id number] Unknown, Physician [address] [place], [place] [phone] SYNCOPE/NEAR--SYNCOPE- -ED; HEARTBEAT,IRREGULAR Social History Tobacco Use [...] CST Pt transferred to this RN from knit goods press hand for urgent triage of irregular heart beat [...] bpm states that she was evaluated in [facility] yesterday, but states that when she was seen, her heart rate back down to normal and that ER provider had told that there was no clear cause for symptoms at the time of that evaluation. Per EPIC, pt was evaluated one other time in March 2024 at the [place] [facility] for the same symptoms. No clear [...] she is scheduled for bariatric surgery at [facility] on 04/25/[address] Gardiner. Reviewed with [...] Duringexercise.) Protocols used: Heart Rate and Heartbeat Akpxsonfo-ABXXR-HY Evaluation within 4 hours is discussed and recommended for this pt at this time per protocol. Pt is advised that [facility] setting would be appropriate for pt to [...] time. Mali Bourgeois RN 04/20/2024 8:14 AM ME POLISHER * Sonia Wild - 04/20/2024 7:25 AM CST Verified patient identity using three identifiers: Yes Caller's relationship to patient: Self, Do you have a provider/clinic where you are seen for this? [facility]/Carolynn/Kelle/Lio Are you calling about a /HULL MOLDER related concern? No Symptoms Describe the reason for call/symptoms (include location and duration if applicable): Pt c/o irregular heartbeat (157 Apple Watch), near syncope Plan:Caller transferred directly to CareLine nurse. ME POLISHER documented in this encounter Plan of Treatment Upcoming Encounters Date Type Department Care Team (Late st Contact Info) Description 04/25/2024 Hospital Encounter [facility] Operating Room [address] [facility] [place], [place] [address] Jayme Gardiner MBBS [address] [facility] [address] [place] [address] 06/09/2024 10:00 AM CHROME POLISHER Appointment Nursing at [address] [address] Scheduled Procedures Name Priority Associated Diagnoses Date/Ti me XI Robotic Laparoscopic Vert ical Sleeve Gastrectomy Morbid obesity with BMI of 40.0-44.9, adult ([facility]C) documented as of this encounter Visit Diagnoses Not on filedocumented in this encounter Care Teams L Tacker Relationship Specialty Start Date End Date Jennifer Palumbo PA-C [address] [place] [address] PCP - General Physician Ceramic Sprayer 02/02/22 documented as of this encounter
--- OUTSIDE RECORDS SUMMARY | 2024-04-22 13:45 | XMS_ITS | Encounter Summary ---
Author Organization [place] Address [address] [place] [address] Care Team Providers Care Dye Maker Name Role Phone Jennifer Palumbo Primary Care Provider [phone] Encounter Details Date Type Department Care Team (Latest Contact Info) Description 04/19/2024 Travel Social History Tobacco Use Types Packs/Day Years Used Date Smoking Tobacco: Never Assessed Adolescent Education Answer Date Record ed Getting School Help Needed Not on file 02/03 Comments No Sex and Gender Information Value Date Recorded Sex Assigned at Not on file Legal Sex Female 6:11 PM MACHINE SETUP OPERATOR Gender Identity Not on file Sexual Orientation Not on file documented as of this encounter Plan of Treatment Not on file documented as of this encounter Visit Diagnoses Not on filedocumented in this encounter Care Teams Dye Maker Relationship Specialty Start Date End Date Jennifer [facility]umbo [facility] [id number] [place] [address] PCP - General 09/11/23 documented as of this encounter
--- OUTSIDE RECORDS SUMMARY | 2024-04-22 13:45 | XMS_ITS | Encounter Summary ---
Author Organization [facility] [employer] Address [address] [address] Care Team Providers Care Diving Supervisor Name Role Phone Jennifer Palumbo PA-C Primary Care Provider [phone] Reason for Visit * Reason Comments Morbid Obesity Video Visit Encounter Details Date Type Department Care Team (Late st Contact Info) Description 02/01/2024 10:00 AM CDT Telemedicine [facility] [address] [facility] [address] [place] [address] Meenakshi León RN Morbid obesity with body [...] (to equal 20 mg total) in the early childhood education specialist on the day before surgery. Continue [...] 10:00 AM CDT Group Video Visit via Individual Digital Preoperative Education - Bariatric Surgery Completed preoperative [...] contact number for questions. Encouraged to contact [facility] with any questions or concerns. Meenakshi León RN 02/01/2024, 11:30 AM documented in this encounter Plan of Treatment Upcoming Encounters Date Type Department Care Team (Late st Contact Info) Description 04/25/2024 Hospital Encounter [facility] Operating Room [address] [place] [address] Jayme Gardiner MBBS [address] [facility] [address] [place] [address] 06/09/2024 10:00 AM GEOPOLITICS TEACHER Appointment Nursing at [address] [phone] Scheduled Procedures Name Priority Associated Diagnoses Date/Ti me XI Robotic Laparoscopic Vert ical Sleeve Gastrectomy Morbid obesity with BMI of 40.0-44.9, adult (HRC) documented as of this encounter Visit Diagnoses Diagnosis Morbid obesity with body mass index (BMI) of 40.0 to 44.9 in adult (HRC)- Primary documented in this encounter Care Teams Diving Supervisor Relationship Specialty Start Date End Date Jennifer Palumbo PA-C [address] [place] [address] PCP - General Physician Rough Rice Grader 02/02/22 documented as of this encounter
--- OUTSIDE RECORDS SUMMARY | 2024-04-22 13:45 | XMS_ITS | Encounter Summary ---
Author Organization [employer] Address [address] [address] Care Team Providers Care Debt Recovery Officer Name Role Phone Jennifer Palumbo PA-C Primary Care Provider [phone] Reason for Referral * (Routine) - New Request Specialty Diagnoses / Procedures Referred By Marie webb Referred To Contact Diagnoses Heart palpitations Tachycardia Procedures E-Consult to Cardiology Jennifer Palumbo PA-C [address] [place] [address] Referral ID Status Reason Start Date Expiration Date V isits Requested Visits Authorized [id number] New Request 04/19/2024 07/19/2025 1 1 UCT SUPPORT MANAGER Encounter Details Date Type Department Care Team (Late st Contact Info) Description 04/19/2024 Notes/Orders [facility] [address] [place] [phone] Jennifer Palumbo PA-C [address] [place] [address] Heart palpitations (Primary Dx); Tachycardia [...] st Contact Info) Description 04/25/2024 Hospital Encounter [facility] Operating Room [address] [facility] [place], [place] [address] Jayme Gardiner MBBS [address] [facility] [address] [place], [place] [phone] 06/09/2024 10:00 AM PRODUCT SUPPORT MANAGER Appointment Nursing at [address] [address] Scheduled Procedures Name Priority Associated Diagnoses Date/Ti me XI Robotic Laparoscopic Vert ical Sleeve Gastrectomy Morbid obesity with BMI of 40.0-44.9, adult (HRC) documented as of this encounter Visit Diagnoses Diagnosis Morbid obesity with BMI of 40.0-44.9, adult (HRC)- Primary Heart palpitations- Primary Palpitations Tachycardia Tachycardia, unspecified documented in this encounter Care Teams Debt Recovery Officer Relationship Specialty Start Date End Date Jennifer Palumbo PA-C [address] [place] [address] PCP - General Physician Brakeshoe Repairer 02/02/22 documented as of this encounter
--- OUTSIDE RECORDS SUMMARY | 2024-04-22 13:45 | XMS_ITS | Encounter Summary ---
Author Organization [facility] Address [address], [place] [address] Care Team Providers Care Rehabilitation Caseworker Name Role Phone Jenny Krause PA-C Primary Care Provider [phone] Reason for Visit * Reason Comments PRE-OP EXAM Encounter Details Date Type Department Care Team (Late st Contact Info) Description 04/09/2024 8:10 AM ELEMENTARY TUTOR Pre-Op Visit [facility] [address] [place] [address] Jenny Krause PA-C [address] [place] [address] Preop examination (Primary Dx); Morbid obesity with body mass index (BMI) of 40.0 to 44.9 in adult (HRC); Tachycardia Social History Tobacco Use Types Packs/Day [...] Comments Blood Pressure 138/83 04/09/2024 8:03 AM ELEMENTARY TUTOR Pulse 74 04/09/2024 8:03 AM ELEMENTARY TUTOR Temperature - - Respiratory Rate - - Oxygen Saturation - - Inhaled Oxygen Concentration - - Weight 126.6 kg (279 lb) 04/09/2024 8:03 AM ELEMENTARY TUTOR Height 171 cm (5' 7.32) 04/09/2024 8:03 AM ELEMENTARY TUTOR Body Mass Index 43.28 04/09/2024 8:03 AM ELEMENTARY TUTOR documented in this encounter Patient Instructions * Patient Instructions* Jenny Krause PA-C - 04/09/2024 8:10 AM ELEMENTARY TUTOR Follow your individualized medication recommendations as described above. In addition, please stop all dwpr-tbp-[id number] medications including aspirin, ibuprofen (Advil, Motrin), naproxen [...] have adverse reactions to anesthesia and medications. Lisman your teeth on the morning of your [...] before your surgery, call the Pre-Op nurse. ENTARY TUTOR documented in this encounter Progress Notes * Jenny Krause PA-C - 04/09/2024 8:10 AM CSTAddended by: JENNY KRAUSE on: 04/22/2024 06:53 AM Modules accepted: Level of Service ENTARY TUTOR * Jenny Krause PA-C - 04/09/2024 8:10 AM CST Pre-Operative Assessment 04/09/2024 Pre-Op Assessment Procedure Details Procedure XI Robotic Laparoscopic Vertical Sleeve Gastrectomy Surgeon Jayme Gardiner MBBS and Nieves Pineda PA-C Location [facility] Procedure Date 04/25/2024 Gratn Graves is a 34 y.o. old female here for pre-operative evaluation for procedure noted above. Concerns: ER visit recently for 200 bmps on watch, just sitting and relaxing. [place] off and sweaty. About 2 weeks ago, [...] Morbid obesity with BMI of 40.0-44.9, adult ([facility]) 02/04/2024 Morbid obesity with body mass index (BMI) of 40.0 to 44.9 in adult ([facility]) 01/10/2024 Obesity, Class II, BMI 35-39.9 ([facility]) 10/23/2023 Abnormal Papanicolaou smear of cervix [...] Confirmed by - EMERGENCY ROOM, PHYSICIAN ([id number]), food editor SAMAN CRUZ ([place]) on 06/21/2021 6:44:49 AM Assessment/Plan Patient is medically optimized for planned procedure(s) assuming pended studies are acceptable. Pending Zio patch results. When results return, I will E-consult Cardiology to discuss patient case andget recommendations. Update 04/22/24: Zio patch results were unremarkable, however, patient continues to experience symptoms of tachycardia. Discussed via E-consult with Cardiology and they believe this is most likelyparoxysmal SVT. Patient also had an appointment with [facility] Cardiology yesterday. She will be getting an echocardiogram, and she has been started on atenolol. At this time, patient wishes to postponesurgery on 04/25/24 while undergoing cardiac work up. She will plan for surgery at a later date. ICD-10-CM 1. Preop examination Z01.818 Test (Urine) Complete Blood Count -W/Diff BMP 2. Morbid obesity with body mass index (BMI) of 40.0 to 44.9 in adult ([facility]) E66.01 Z68.41 3. Tachycardia R00.0 Medication changes are listed in patient instructions below: No Aspirin or motrin or aleve or advil or ibuprofen 1 week before surgery. Tylenol is safe to use at that time. Tylenol limit 3000 mg in a day Normal exam Negative UPT, do blood work and E-visit Cardiology follow-up Patient currently undergoing Cardiac work-up for tachycardia. Special risks: At risk for or history of sleep apnea. Recommend RT assessment. Medication recommendations: Patient Instructions Follow your individualized medication recommendations as described above. In addition, please stop all lqmq-lcg-dnvvpfz medications including aspirin, ibuprofen (Advil, Motrin), naproxen [...] have adverse reactions to anesthesia and medications. Lisman your teeth on the morning of your [...] call the Pre-Op nurse. Electronically signed by: Jenny Krause PA-C 04/09/2024, 6:51 AM ENTARY TUTOR documented in this encounter Plan of Treatment Upcoming Encounters Date Type Department Care Team (Late st Contact Info) Description 04/25/2024 Hospital Encounter [facility] Operating Room [address] [place] [address] Jayme Gardiner MBBS [address] [facility] [address] [place] [address] 06/09/2024 10:00 AM ELEMENTARY TUTOR Appointment Nursing at [facility] [address] [place] [address] Scheduled Procedures Name Priority Associated Diagnoses Date/Ti me XI Robotic Laparoscopic Vert ical Sleeve Gastrectomy Morbid obesity with BMI of 40.0-44.9, adult ([facility]C) documented as of this encounter Results * Test (Urine) (04/09/2024 8:52 AM ELEMENTARY TUTOR) HCG, Urine Negative Negative 04/09/2024 8:56 AM ELEMENTARY TUTOR [facility] Urine Non-blood Collection / Unknown 04/09/2024 8:52 AM ELEMENTARY TUTOR 04/09/2024 8:52 AM ELEMENTARY TUTOR Jenny Krause PA-C LAB_1 [facility] [address] [place] [address], [facility] * (ABNORMAL) BMP (04/09/2024 8:35 AM ELEMENTARY TUTOR) Sodium 138 136 - 145 mmol/L 04/09/2024 11:42 AM [facility] Potassium 4.0 3.5 - 5.1 mmol/L 04/09/2024 11:42 AM [facility] Chloride 108 98 - 109 mmol/L 04/09/2024 11:42 AM [facility] CO2 23 20 - 29 mmol/L 04/09/2024 11:42 AM [facility] Anion Gap 7 6 - 16 mmol/L 04/09/2024 11:42 AM [facility] Calcium 9.7 8.4 - 10.4 mg/dL 04/09/2024 11:42 AM [facility] BUN 11 7 - 26 mg/dL 04/09/2024 11:42 AM [facility] Creatinine 0.73 0.55 - 1.02 mg/dL 04/09/2024 11:42 AM [facility] Glucose 104(H) 70 - 100 mg/dL 04/09/2024 11:42 AM [facility] Comment:The given reference range is for the fasting state. Non-fasting reference range for glucose is 70 - 180 mg/dL. GFR, Estimated >60 >60 mL/min/1. 73m2 04/09/2024 11:42 AM [facility] Hours Fasting 0.1 8 - 12 Hours 04/09/2024 11:42 AM [facility] Blood Venipuncture / Unknown 04/09/2024 8:35 AM ELEMENTARY TUTOR 04/09/2024 8:35 AM [facility] Jenny Krause PA-C LAB_1 [facility] [address] documented in this encounter Visit Diagnoses Diagnosis Morbid obesity with BMI of 40.0-44.9, adult (HRC)- Primary Preop examination- Primary Preoperative examination, unspecified Morbid obesity with body mass index (BMI) of 40.0 to 44.9 in adult (HRC) Tachycardia Tachycardia, unspecified documented in this encounter Care Teams Rehabilitation Caseworker Relationship Specialty Start Date End Date Jenny Krause PA-C [address] [place] [address] PCP - General Physician Fringe Weaver 02/02/22 documented as of this encounter
--- OUTSIDE RECORDS SUMMARY | 2024-04-22 13:45 | XMS_ITS | Encounter Summary ---
Author Organization [facility] Address [address] [place] [address] Care Team Providers Care Powered Bridge Specialist Name Role Phone Jennifer Palumbo PA-C Primary Care Provider [phone] Reason for Referral * Procedure/Equipment (Routine) - Incomplete Specialty Diagnoses / Procedures Referred By Marie webb Referred To Contact Diagnoses Morbid obesity with BMI of 40.0-44.9, adult (HRC) Procedures Case Request OR - General/Vascular Surg: XI Robotic Laparoscopic Vertical Sleeve Gastrectomy Jayme Gardiner MBBS [address] [facility] [address] [place] [address] Referral ID Status Reason Start Date Expiration Date V isits Requested Visits Authorized [id number] Incomplete 02/04/2024 05/05/2025 1 1 Reason for Visit * Reason Comments CONSULT Encounter Details Date Type Department Care Team (Late st Contact Info) Description 02/04/2024 2:40 PM CDT Office Visit [facility] [address] [facility] [address] [place], [place] [address] Jayme Gardiner MBBS [address] [facility] [address] [place] [address] Morbid obesity with BMI of 40.0-44.9, adult [...] 20 mg total) in the early childhood specialist on the day before surgery. Continue [...] Gardiner MBBS - 02/04/2024 2:40 PM CDT [facility] Bariatric Surgery Consult Date: 02/04/2024 Ely [...] in attempts to lose weight without any half-way success. Methods of weight loss had included but are not limited to: medical weight management plan through her PCP, dietary modification, exercise regimen, and Wegovy Estimated body mass index is 43.05 kg/m?? as calculated from the following: Height as of this encounter: 5' 7.5 (171.5 cm). Weight as of this encounter: 279 lb (066376 g). Patient Active Problem List Diagnosis Abnormal [...] EXTRACTION Medications/Allergies: cholecalciferol (VITAMIN D3) 1.25 MG (71836 UT) capsule, Take 1 Capsule (50,000 Units) by mouth once every week., Disp: 12 Capsule, Rfl: 0 cholecalciferol (VITAMIN D3) 1.25 MG (13549 UT) capsule, Take 1 Capsule (50,000 Units) by mouth once every week., Disp: 12 Capsule, Rfl: 0 medroxyPROGESTERone (DEPO-PROVERA) injection 150 mg, 150 mg, Intramuscular, [id number], Jennifer Palumbo PA-C, 150 mg at 01/02/24 0951 Amoxicillin and Penicillins Physical Exam: Vitals: Ht 5' 7.5 (171.5 cm) Wt 279 lb (961151 g) BMI 43.05 kg/m?? Weight at start [...] Weight as of this encounter: 279 lb (916076 g). Ely Campbell meets criteria for bariatric [...] diets that do not lend themselves to local company intermodal truck driver satiety. A patient must achieve the result [...] weight gain, nutritional deficiencies, DVT, PE, CVA, SC Robotic approach contingent upon robotic platform availability. [...] st Contact Info) Description 04/25/2024 Hospital Encounter [facility] Operating Room [address] [facility] [place] [address] Jayme Gardiner MBBS [address] [facility] [address] [place] [address] 06/09/2024 10:00 AM DEBLOCKER Appointment Nursing at [address] [address] Scheduled Procedures Name Priority Associated Diagnoses Date/Ti me XI Robotic Laparoscopic Vert ical Sleeve Gastrectomy Morbid obesity with BMI of 40.0-44.9, adult (HRC) documented as of this encounter Visit Diagnoses Diagnosis Morbid obesity with BMI of 40.0-44.9, adult (HRC)- Primary Morbid obesity with BMI of 40.0-44.9, adult (HRC)- Primary documented in this encounter Care Teams Powered Bridge Specialist Relationship Specialty Start Date End Date Jennifer Palumbo, SALLY [address] [place] [address] PCP - General Physician Senior Sustainability Consultant 02/02/22 documented as of this encounter
--- OUTSIDE RECORDS SUMMARY | 2024-04-22 13:45 | XMS_ITS | Encounter Summary ---
Author Organization [employer] Address [address] [place] [address] Care Team Providers Care Commutator Repairer Name Role Phone Jennifer Palumbo PA-C Primary Care Provider [phone] Reason for Visit * Reason Comments Nutrition Counseling Encounter Details Date Type Department Care Team (Late st Contact Info) Description 04/14/2024 8:00 AM INVERTER AND CLIPPER Telemedicine [facility] [address] [facility] [address] [place], [place] [address] Sierra Palm RDN, LD [address] [place], [place] [id number] Morbid obesity with BMI of 40.0-44.9, adult [...] 122.5 kg (270 lb) 04/13/2024 8:18 PM INVERTER AND CLIPPER Height 170.2 cm (5' 7) 04/13/2024 8:18 PM INVERTER AND CLIPPER Body Mass Index 42.29 04/13/2024 8:18 PM INVERTER AND CLIPPER documented in this encounter Progress Notes * Sierra Palm RDN, LD - 04/14/2024 8:00 AM CST [facility] Medical Nutrition Therapy: Bariatric Pre-Op ASSESSMENT: Referring [...] minutes. This visit was conducted via video RTER AND CLIPPER documented in this encounter Plan of Treatment Upcoming Encounters Date Type Department Care Team (Late st Contact Info) Description 04/25/2024 Hospital Encounter [facility] Operating Room [address] [place] [address]. [place] [address] Jayme Gardiner MBBS [address] [facility] [address] [place] [address] 06/09/2024 10:00 AM INVERTER AND CLIPPER Appointment Nursing at [address] [phone] Scheduled Procedures Name Priority Associated Diagnoses Date/Ti me XI Robotic Laparoscopic Vert ical Sleeve Gastrectomy Morbid obesity with BMI of 40.0-44.9, adult (HRC) documented as of this encounter Visit Diagnoses Diagnosis Morbid obesity with BMI of 40.0-44.9, adult (HRC)- Primary Morbid obesity with BMI of 40.0-44.9, adult (HRC)- Primary documented in this encounter Care Teams Commutator Repairer Relationship Specialty Start Date End Date Jennifer Palumbo PA-C [address] [place] [address] PCP - General Physician Certified Professional Controller 02/02/22 documented as of this encounter
--- OUTSIDE RECORDS SUMMARY | 2024-04-22 13:45 | XMS_ITS | Clinical Summary ---
Author Organization [facility] Address [place], [place] [address] Care Team Providers Care Electric Motor And Generator Assembler Name Role Phone Jennifer Palumbo PA-C Primary Care Provider [phone] Allergies Active Allergy Reactions Criticality Noted Date [...] Department Care Team Description 04/21/2024 11:00 AM C APPLICATION DEVELOPER Office Visit [facility] [address] [place] [address] Дмитрий Gaming MD Consult 04/21/2024 Orders Only [facility] [address] [place] [address] Дмитрий Gaming MD 1 scan: (1-Ord) 04/21/2024 04/21/[address] [facility] [address] [place] [address] Дмитрий Gaming MD Dizziness (Patient calling c/o dizziness/light headed s/p starting new Atenolol [address] Gaming) 04/21/2024 Travel 04/16/2024 Orders Only [facility] [address] [place] [address] Beti Smith 1 scan: (1-Ord) Zio from [...] on file Legal Sex Female 5:25 AM C APPLICATION DEVELOPER Gender Identity Not on file Sexual Orientation Not on file Obstetrics History Last Filed Vital Signs Vital Sign Reading Time Taken Comments Blood Pressure 116/70 04/21/2024 10:49 AM C APPLICATION DEVELOPER Pulse 72 04/21/2024 10:49 AM C APPLICATION DEVELOPER Temperature 36.2 C (97.1 F) 02/08/2022 4:51 PM CDT Respiratory Rate 17 02/08/2022 4:51 PM CDT Oxygen Saturation 99% 02/08/2022 4:51 PM CDT Inhaled Oxygen Concentration - - Weight 124.3 kg (274 lb) 04/21/2024 10:49 AM C APPLICATION DEVELOPER Height 170.2 cm (5' 7) 04/21/2024 10:49 AM C APPLICATION DEVELOPER Body Mass Index 42.91 04/21/2024 10:49 AM C APPLICATION DEVELOPER Plan of Treatment Upcoming Encounters Date Type Department Care Team (Late st Contact Info) Description 04/23/2024 12:05 PM C APPLICATION DEVELOPER Appointment [facility] [address] [place] [address] 04/23/2024 1:30 PM C APPLICATION DEVELOPER Hospital Encounter [facility] [address], [address] [place] [address] [place] [address] [place] [address] Health Maintenance Due Date Last Done Comments [...] EKG 12 LEAD Routine 04/21/2024 12:00 AM C APPLICATION DEVELOPER Routine general medical examination at a health care facility EXTENDED HOLTER Routine 03/28/2024 Cardiac arrhythmia, unspecified cardiac arrhythmia type from Last 3 Months Results * EKG 12 LEAD (04/21/2024 12:00 AM C APPLICATION DEVELOPER) us Дмитрий Gaming MD EKG ORD Final Result * EXTENDED HOLTER (03/28/2024) us Conor Sanabria CARDIAC SERVICES ORD Final Resul t from Last 3 Months Insurance [facility] [place] [place] Care Teams Electric Motor And Generator Assembler Relationship Specialty Start Date End Date Jennifer Palumbo PA-C [address] [place] [address] PCP - General Physician Kitchen Operator 04/21/24
--- OUTSIDE RECORDS SUMMARY | 2024-04-22 13:45 | XMS_ITS | Encounter Summary ---
Author Organization [facility] Address [address] [address] Care Team Providers Care Captain/Check Airman Name Role Phone Jennifer Palumbo PA-C Primary Care Provider [phone] Reason for Visit * Reason Comments Careplan: General Encounter Details Date Type Department Care Team (Late st Contact Info) Description 04/18/2024 Telephone [facility] [address] [facility] [address] [place], [place] [address] Julio Cesar Gao, RN Careplan: General Social [...] day before surgery, pre-op shower instructions given. ROLLER OPERATOR HOT MIX documented in this encounter Plan of Treatment Upcoming Encounters Date Type Department Care Team (Late st Contact Info) Description 04/25/2024 Hospital Encounter [facility] Operating Room [address] [facility] [place] [address] Jayme Gardiner MBBS [address] [facility] [address] [place] [address] 06/09/2024 10:[address] ROLLER OPERATOR HOT MIX Appointment Nursing at [address] [address] Scheduled Procedures Name Priority Associated Diagnoses Date/Ti me XI Robotic Laparoscopic Vert ical Sleeve Gastrectomy Morbid obesity with BMI of 40.0-44.9, adult (HRC) documented as of this encounter Visit Diagnoses Not on filedocumented in this encounter Care Teams Captain/Check Airman Relationship Specialty Start Date End Date Jennifer Palumbo PA-C [address] [place] [address] PCP - General Physician Systems Project Manager 02/02/22 documented as of this encounter
--- OUTSIDE RECORDS SUMMARY | 2024-04-22 13:45 | XMS_ITS | Encounter Summary ---
Author Organization [facility] Address [address], [place] [address] Care Team Providers Care Engineer Rf Deployment Name Role Phone Jennifer Palumbo PA-C Primary Care Provider [phone] Encounter Details Date Type Department Care Team (Late st Contact Info) Description 04/09/2024 8:30 AM TRANSPORTATION AID Lab Visit Laboratory at [address] [address] Preop examination Social History Tobacco Use Types [...] 04/25/2024 Hospital Encounter [facility] Operating Room [address] [facility] [place], [place] [address] Jayme Gardiner MBBS [address] [facility] [address] [place], [place] [address] 06/09/2024 10:00 AM TRANSPORTATION AID Appointment Nursing at [facility] [address] [place] [address] Scheduled Procedures Name Priority Associated Diagnoses Date/Ti me XI Robotic Laparoscopic Vert ical Sleeve Gastrectomy Morbid obesity with BMI of 40.0-44.9, adult (HRC) documented as of this encounter Procedures Procedure Name Priority Date/Time Associated Diagnosis Comments TEST (URINE) Routine 04/09/2024 8:52 AM TRANSPORTATION AID Preop examination CBC AND DIFFERENTIAL PANEL Routine 04/09/2024 8:35 AM TRANSPORTATION AID Preop examination COMPLETE BLOOD COUNT-W/DIFF Routine 04/09/2024 8:35 AM TRANSPORTATION AID Preop examination BASIC METABOLIC PANEL Routine 04/09/2024 8:35 AM TRANSPORTATION AID Preop examination documented in this encounter Results * Test (Urine) (04/09/2024 8:52 AM TRANSPORTATION AID) HCG, Urine Negative Negative 04/09/2024 8:56 AM TRANSPORTATION AID [facility] Urine Non-blood Collection / Unknown 04/09/2024 8:52 AM TRANSPORTATION AID 04/09/2024 8:52 AM TRANSPORTATION AID Jennifer Palumbo PA-C LAB_1 [facility] [address] [place] [address] [[email or web address]] * Complete Blood Count-W/Diff (04/09/2024 8:35 AM TRANSPORTATION AID) WBC 7.4 3.5 - 10.5 x10(9)/L 04/09/2024 8:57 AM TRANSPORTATION AID [facility] RBC 4.88 3.90 - 5.03 x10(12)/L 04/09/2024 8:57 AM TRANSPORTATION AID [facility] Hemoglobin 14.2 12.0 - 15.5 g/dL 04/09/2024 8:57 AM [facility] HCT 42.0 34.9 - 44.5 % 04/09/2024 8:57 AM [facility] MCV 86.1 80.0 - 100.0 fL 04/09/2024 8:57 AM [facility] MCH 29.1 27.6 - 33.3 pg 04/09/2024 8:57 AM [facility] MCHC 33.8 31.5 - 35.2 g/dL 04/09/2024 8:57 AM [facility] RDW 12.3 11.9 - 15.5 % 04/09/2024 8:57 AM [facility] Platelets 266 150 - 450 x10(9)/L 04/09/2024 8:57 AM [facility] Neutrophil Absolute 4.2 1.7 - 7.0 10(9)/L 04/09/2024 8:57 AM [facility] Lymphocyte Absolute 2.4 1.0 - 4.8 10(9)/L 04/09/2024 8:57 AM [facility] Monocyte Absolute 0.6 0.2 - 0.9 10(9)/L 04/09/2024 8:57 AM [facility] Eosinophil Absolute 0.1 0.0 - 0.5 10(9)/L 04/09/2024 8:57 AM [facility] Basophil Absolute 0.0 0.0 - 0.3 10(9)/L 04/09/2024 8:57 AM [facility] Immature Granulocyte % 0.1 0.0 - 0.5 % 04/09/2024 8:57 AM [facility] Blood Venipuncture / Unknown 04/09/2024 8:35 AM TRANSPORTATION AID 04/09/2024 8:35 AM TRANSPORTATION AID Jennifer Palumbo PA-C LAB[facility]1 [facility] [address] [place] [address], [facility] * (ABNORMAL) BMP (04/09/2024 8:35 AM TRANSPORTATION AID) Sodium 138 136 - 145 mmol/L 04/09/2024 11:42 AM [facility] Potassium 4.0 3.5 - 5.1 mmol/L 04/09/2024 11:42 AM [facility] Chloride 108 98 - 109 mmol/L 04/09/2024 11:42 AM [facility] CO2 23 20 - 29 mmol/L 04/09/2024 11:42 AM [facility] Anion Gap 7 6 - 16 mmol/L 04/09/2024 11:42 AM [facility] Calcium 9.7 8.4 - 10.4 mg/dL 04/09/2024 11:42 AM [facility] BUN 11 7 - 26 mg/dL 04/09/2024 11:42 AM [facility] Creatinine 0.73 0.55 - 1.02 mg/dL 04/09/2024 11:42 AM [facility] Glucose 104(H) 70 - 100 mg/dL 04/09/2024 11:42 AM [facility] Comment:The given reference range is for the fasting state. Non-fasting reference range for glucose is 70 - 180 mg/dL. GFR, Estimated >60 >60 mL/min/1. 73m2 04/09/2024 11:42 AM [facility] Hours Fasting 0.1 8 - 12 Hours 04/09/2024 11:42 AM [facility] Blood Venipuncture / Unknown 04/09/2024 8:35 AM TRANSPORTATION AID 04/09/2024 8:35 AM TRANSPORTATION AID Jennifer Palumbo PA-C LAB_1 Performing Organization Address City/State/[facility] Co de Phone Number [facility] [address] documented in this encounter Visit Diagnoses Diagnosis Morbid obesity with BMI of 40.0-44.9, adult (HRC)- Primary Preop examination Preoperative examination, unspecified documented in this encounter Care Teams Engineer Rf Deployment Relationship Specialty Start Date End Date Jennifer Palumbo PA-C [address] [place] [address] PCP - General Physician Dot Compliance Specialist 02/02/22 documented as of this encounter
--- OUTSIDE RECORDS SUMMARY | 2024-04-22 13:45 | XMS_ITS | Encounter Summary ---
Author Organization [facility] Address [address] [place] [address] Care Team Providers Care Sales Support Administrator Name Role Phone Jennifer Palumbo PA-C Primary Care Provider [phone] Encounter Details Date Type Department Care Team (Late st Contact Info) Description 02/05/2024 Notes/Orders [facility] [address] [facility] [address] [place], [place] [address] Letitia Isaac Social History Tobacco Use Types [...] st Contact Info) Description 04/25/2024 Hospital Encounter [facility] Operating Room [address] [facility]. [place], [place] [address] Jayme Gardiner MBBS [address] [facility] [address] [place], [place] [address] 06/09/2024 10:00 AM CHILDRENS CLUB ATTENDANT Appointment Nursing at [address] [address] Scheduled Procedures Name Priority Associated Diagnoses Date/Ti me XI Robotic Laparoscopic Vert ical Sleeve Gastrectomy Morbid obesity with BMI of 40.0-44.9, adult (HRC) documented as of this encounter Visit Diagnoses Not on filedocumented in this encounter Care Teams Sales Support Administrator Relationship Specialty Start Date End Date Jennifer Palumbo PA-C [address] [place] [address] PCP - General Physician Nuclear Officer 02/02/22 documented as of this encounter
--- OUTSIDE RECORDS SUMMARY | 2024-04-22 13:46 | XMS_ITS | Encounter Summary ---
Author Organization [facility] Address [address] [place] [address] Care Team Providers Care Embroidery Worker Name Role Phone Jennifer Palumbo PA-C Primary Care Provider [phone] Encounter Details Date Type Department Care Team (Late st Contact Info) Description 01/11/2024 E-Visit [facility] [address] [facility] [address] [place], [place] [address] Letitia Isaac Social History Tobacco Use Types [...] st Contact Info) Description 04/25/2024 Hospital Encounter [facility] Operating Room [address] [facility]. [place], [place] [address] Jayme Gardiner MBBS [address] [facility] [address] [place], [place] [address] 06/09/2024 10:00 AM MIRROR INSPECTOR Appointment Nursing at [address] [address] Scheduled Procedures Name Priority Associated Diagnoses Date/Ti me XI Robotic Laparoscopic Vert ical Sleeve Gastrectomy Morbid obesity with BMI of 40.0-44.9, adult (HRC) documented as of this encounter Visit Diagnoses Not on filedocumented in this encounter Care Teams Embroidery Worker Relationship Specialty Start Date End Date Jennifer Palumbo PA-C [address] [place] [address] PCP - General Physician Die Designer 02/02/22 documented as of this encounter
== END 2024-04-22 13:41 | disposition home or self-care (01) ==
PROVIDERS: Visit Provider Physician Assistant
DX: R10.13 Epigastric pain (principal); J02.9 Acute pharyngitis, unspecified; R11.0 Nausea
CPT/HCPCS: 80076; 83690